=== PATIENT | male | born 1990 | race Caucasian/White ===

== ENCOUNTER 2018-05-21 08:17 | Emergency (ER) | payer OTHER ==
[2018-05-21 08:33] VITALS: BP 127/73; PULSE 65; RESP 18; TEMP 98
--- NOTE | 2018-05-21 08:58 | ED ---
General Adult HPI - General Chief complaint: Psychiatric Symptoms Stated complaint: EPS eval Time Seen by Provider: 05/21/18 08:38 Source: patient, RN notes reviewed, old records reviewed Mode of arrival: ambulatory - History of Present Illness Initial comments: 27-year-old male presents for mental health evaluation. Patient states he has not been sleeping well, he feels somewhat anxious. Denies any suicidal ideation. Patient has past history of autism, depression and anxiety. No diagnosis of schizophrenia. No physical complaints. - Related Data Home Medications Medication Instructions Recorded Confirmed PARoxetine HCL [Paxil] 30 mg PO HS 05/21/18 05/21/18 Previous Rx's Medication Instructions Recorded guanFACINE [Tenex] 0.5 mg PO AC-TID #45 tab 08/11/15 Allergies Allergy/AdvReac Type Severity Reaction Status Date / Time No Known Allergies Allergy Verified 05/21/18 10:29 Review of Systems ROS Statement: Those systems with pertinent positive or pertinent negative responses have been documented in the HPI. ROS Other: All systems not noted in ROS Statement are negative. Past Medical History Past Medical History: No Reported History Additional Past Medical History / Comment(s): autism History of Any Multi-Drug Resistant Organisms: None Reported Past Surgical History: No Surgical Hx Reported Past Anesthesia/Blood Transfusion Reactions: No Reported Reaction Past Psychological History: Depression Smoking Status: Current every day smoker Past Alcohol Use History: Occasional Past Drug Use History: None Reported - Past Family History Mother Additional Family Medical History / Comment(s): Mother is alive at age 60 with history of bipolar, Crohn's disease Father Family Medical History: Myocardial Infarction ([place]) Additional Family Medical History / Comment(s): Father is alive at age 55 with history of 2 myocardial infarctions. Sister(s) Additional Family Medical History / Comment(s): He has one sister with no major medical problems. General Exam General appearance: alert, in no apparent distress Head exam: Present: atraumatic, normocephalic Eye exam: Present: normal appearance, PERRL ENT exam: Present: normal exam Neck exam: Present: normal inspection. Absent: tenderness, meningismus Respiratory exam: Present: normal lung sounds bilaterally. Absent: respiratory distress, wheezes Cardiovascular Exam: Present: regular rate, normal rhythm GI/Abdominal exam: Present: soft. Absent: distended, tenderness Extremities exam: Present: normal inspection Neurological exam: Present: alert, oriented X3 Psychiatric exam: Present: depressed Expanded Focused psych exam: Present: delusional, flight of ideas, loose associations Skin exam: Present: warm, dry, intact. Absent: cyanosis, diaphoretic Course Vital Signs 05/21/18 08:27 Temperature 98.0 F Pulse Rate 65 Respiratory 18 Rate Blood Pressure 127/73 O2 Sat by Pulse 98 Oximetry Medical Decision Making - Medical Decision Making 27-year-old male presenting for psychiatric evaluation. Patient is not suicidal or homicidal. He is evaluated by EPS after being medically cleared. EPS does feel this patient is safe for outpatient follow-up and discharge at this time. He is followed by the mobile crisis unit, he will be contacted by Bill with [facility] this afternoon. Patient will return with worsening or changing symptoms. - Lab Data Lab Results 05/21/18 Range/Units 09:30 Urine Opiates Screen Not Detected (NotDetected) Ur Oxycodone Screen Not Detected (NotDetected) Urine Methadone Screen Not Detected (NotDetected) Ur Propoxyphene Screen Not Detected (NotDetected) Ur Barbiturates Screen Not Detected (NotDetected) U Tricyclic Antidepress Not Detected (NotDetected) Ur Phencyclidine Scrn Not Detected (NotDetected) Ur Amphetamines Screen Not Detected (NotDetected) U Methamphetamines Scrn Not Detected (NotDetected) U Benzodiazepines Scrn Not Detected (NotDetected) Urine Cocaine Screen Not Detected (NotDetected) U Marijuana (THC) Screen Detected H (NotDetected) Disposition Clinical Impression: Acute anxiety, Depression Disposition: HOME SELF-CARE Condition: Good Instructions: Depression (ED), Anxiety (ED) Additional Instructions: His follow-up with [facility], mobile crisis unit Is patient prescribed a controlled substance at d/c from ED?: No Referrals: None,Stated [Primary Care Provider] - 1-2 days Time of Disposition: 14:15
[2018-05-21 09:47] LABS: Amphetamine Screen,Urine Not Detected (NotDetected); Barbiturate Screen,Urine Not Detected (NotDetected); Benzodiazepines Screen,Urine Not Detected (NotDetected); Cocaine Screen,Urine Not Detected (NotDetected); Methadone Screen, Urine Not Detected (NotDetected); Opiate Screen,Urine Not Detected (NotDetected); Oxycodone Screen, Urine Not Detected (NotDetected); Phencyclidine Screen,Urine Not Detected (NotDetected); Tricyclic Antidepressant,Urine Not Detected (NotDetected); Urn Cannabinoid Scrn Detected (NotDetected)
== END 2018-05-21 14:50 | disposition home or self-care (01) ==
LOC: EC 08:17
DX: F32.9 Major depressive disorder, single episode, unspecified (principal); F41.9 Anxiety disorder, unspecified; F84.0 Autistic disorder; F17.200 Nicotine dependence, unspecified, uncomplicated; Z79.899 Other long term (current) drug therapy
CPT/HCPCS: 80306; 82075; 99284

== ENCOUNTER 2018-08-03 21:20 | Emergency (ER) | payer OTHER ==
[2018-08-03 21:28] VITALS: BP 126/88; PULSE 74; RESP 18; TEMP 98.6
--- NOTE | 2018-08-03 21:56 | ED ---
Psych HPI - General Chief Complaint: Psychiatric Symptoms Stated Complaint: Mental Health Time Seen by Provider: 08/03/18 21:41 Source: patient Mode of arrival: ambulatory - History of Present Illness Initial Comments: Patient is a 28-year-old male presenting for aggressive behavior brought in by police. Patient states that he has a history of Asperger's and that he gets frustrated. He threw a plastic face over the bridge out of anger because he was having some problems today. Police brought him in for further evaluation but he denies any suicidal homicidal ideation. He states that he feels great is not been having hallucinations. - Related Data Home Medications Medication Instructions Recorded Confirmed PARoxetine HCL [Paxil] 30 mg PO HS 05/21/18 05/21/18 Previous Rx's Medication Instructions Recorded guanFACINE [Tenex] 0.5 mg PO AC-TID #45 tab 08/11/15 Allergies Allergy/AdvReac Type Severity Reaction Status Date / Time No Known Allergies Allergy Verified 08/03/18 21:28 Review of Systems ROS Statement: Those systems with pertinent positive or pertinent negative responses have been documented in the HPI. Constitutional: Negative for chills, fatigue and fever. HENT: Negative for congestion. Respiratory: Negative for chest tightness, shortness of breath and wheezing. Negative for cough Cardiovascular: Negative for chest pain and palpitations. Gastrointestinal: Negative for abdominal pain. Negative for abdominal distention, diarrhea, nausea and vomiting. Genitourinary: Negative for dysuria. Musculoskeletal: Negative for back pain, neck pain and neck stiffness. Skin: Negative for color change. Neurological: Negative for dizziness, speech difficulty, weakness and light- headedness. Psychiatric/Behavioral: Positive for agitation and negative for confusion. Negative for anxiety ROS Other: All systems not noted in ROS Statement are negative. Past Medical History Past Medical History: No Reported History Additional Past Medical History / Comment(s): autism History of Any Multi-Drug Resistant Organisms: None Reported Past Surgical History: No Surgical Hx Reported Past Anesthesia/Blood Transfusion Reactions: No Reported Reaction Past Psychological History: Depression Smoking Status: Current every day smoker Past Alcohol Use History: Occasional Past Drug Use History: None Reported - Past Family History Mother Additional Family Medical History / Comment(s): Mother is alive at age 60 with history of bipolar, Crohn's disease Father Family Medical History: Myocardial Infarction ([place]) Additional Family Medical History / Comment(s): Father is alive at age 55 with history of 2 myocardial infarctions. Sister(s) Additional Family Medical History / Comment(s): He has one sister with no major medical problems. General Exam - General Exam Comments Initial Comments: Constitutional: Pt appears well-developed and well-nourished. No distress. Head: Normocephalic and atraumatic. Eyes: EOM are normal. Neck: Normal range of motion. Neck supple. Cardiovascular: Normal rate, regular rhythm, S1 normal, S2 normal and normal heart sounds. Exam reveals no gallop and no friction rub. No murmur heard. Pulmonary/Chest: Effort normal and breath sounds normal. No tachypnea and no bradypnea. No respiratory distress. No wheezes or rales noted. Abdominal: Soft. Bowel sounds are normal. Pt exhibits no shifting dullness, no distension, no pulsatile liver, no fluid wave, no abdominal bruit and no ascites. There is no rigidity, no rebound, no guarding, no tenderness at McBurney's point and negative Benavides's sign. There is no tenderness. Musculoskeletal: Normal range of motion. Neurological: Pt is alert and oriented to person, place, and time. No cranial nerve deficit. Skin: Skin is warm and dry. No rash noted. Pt is not diaphoretic. No erythema. No pallor. Psychiatric: Pt has a normal mood and affect. Pt behavior is normal. Thought content normal. Limitations: no limitations Course Vital Signs 08/03/18 21:25 Temperature 98.6 F Pulse Rate 74 Respiratory 18 Rate Blood Pressure 126/88 Medical Decision Making - Medical Decision Making Because the patient had no evidence of homicidal or suicidal ideation, it was thought that the patient could be safely discharged. Psychiatric nurse was also bedside and stated that she would set up home visit with mobile crisis unit. Disposition Clinical Impression: Mental health problem Disposition: HOME SELF-CARE Condition: Good Instructions (If sedation given, give patient instructions): Depression (ED) Is patient prescribed a controlled substance at d/c from ED?: No Referrals: [facility] [Primary Care Provider] - 1-2 days Time of Disposition: 21:58
== END 2018-08-03 22:05 | disposition home or self-care (01) ==
LOC: EC 21:20
DX: R45.4 Irritability and anger (principal); F84.5 Asperger's syndrome; F32.9 Major depressive disorder, single episode, unspecified; F17.200 Nicotine dependence, unspecified, uncomplicated; Z79.899 Other long term (current) drug therapy; Z81.8 Family history of other mental and behavioral disorders
CPT/HCPCS: 82075; 99284

== ENCOUNTER 2018-09-07 18:36 | Inpatient (IN) | payer MEDICAID, OTHER ==
--- NOTE | 2018-09-07 18:52 | ED ---
Psych HPI - General Chief Complaint: Psychiatric Symptoms Stated Complaint: EPS eval Time Seen by Provider: 09/07/18 18:45 Source: patient, police Mode of arrival: ambulatory - History of Present Illness Initial Comments: 28-year-old male patient with past medical history significant for autism, Asperger's, depression, anxiety presents to the emergency department today for evaluation of suicidal thoughts and violent behavior. Patient states that he has been "extremely suicidal". Patient states that he has been smashing everything in his apartment all day today. Patient does admit to smashing his bathroom ear out with a wrench, smashing patel, and breaking things. Patient states he did strike his head against a wall numerous times in attempt to kill himself. He denies any other injuries. Denies any homicidal ideation. States he is not sleeping. States he does follow with [facility] mobile crisis unit but they didn't show up today like there were supposed to. He denies any headache, blurred vision, double vision. Denies any nausea or vomiting. Denies any fever or chills. Patient denies any recent rash, shortness breath, chest pain, abdominal pain, diarrhea, constipation, back pain, numbness, tingling, dizziness, weakness, hematuria, dysuria, urinary urgency, urinary frequency, or any other complaints. - Related Data Home Medications Medication Instructions Recorded Confirmed PARoxetine HCL [Paxil] 20 mg PO HS 09/07/18 09/07/18 guanFACINE HCL [guanFACINE HCL ER] 1 mg PO HS 09/07/18 09/07/18 Allergies Allergy/AdvReac Type Severity Reaction Status Date / Time No Known Allergies Allergy Verified 09/07/18 19:24 Review of Systems ROS Statement: Those systems with pertinent positive or pertinent negative responses have been documented in the HPI. ROS Other: All systems not noted in ROS Statement are negative. Past Medical History Past Medical History: No Reported History Additional Past Medical History / Comment(s): autism History of Any Multi-Drug Resistant Organisms: None Reported Past Surgical History: No Surgical Hx Reported Past Anesthesia/Blood Transfusion Reactions: No Reported Reaction Past Psychological History: Depression Smoking Status: Former smoker Past Alcohol Use History: Rare Past Drug Use History: Marijuana - Past Family History Mother Additional Family Medical History / Comment(s): Mother is alive at age 60 with history of bipolar, Crohn's disease Father Family Medical History: Myocardial Infarction ([place]) Additional Family Medical History / Comment(s): Father is alive at age 55 with history of 2 myocardial infarctions. Sister(s) Additional Family Medical History / Comment(s): He has one sister with no major medical problems. General Exam Limitations: no limitations General appearance: alert, in no apparent distress, other (Physical well- developed, well-nourished adult male patient in no acute distress. Vital signs upon presentation are temperature 97.9F, pulse 73, respirations 18, blood pressure 109/68, pulse ox 97% on room air.) Eye exam: Present: normal appearance, PERRL, EOMI. Absent: scleral icterus, conjunctival injection, periorbital swelling ENT exam: Present: normal exam, normal oropharynx, mucous membranes moist Respiratory exam: Present: normal lung sounds bilaterally. Absent: respiratory distress, wheezes, rales, rhonchi, stridor Cardiovascular Exam: Present: regular rate, normal rhythm, normal heart sounds. Absent: systolic murmur, diastolic murmur, rubs, gallop, clicks GI/Abdominal exam: Present: soft, normal bowel sounds. Absent: distended, tenderness, guarding, rebound, rigid Neurological exam: Present: alert, oriented X3, CN II-XII intact, other (Strength in all 4 extremities is 5/5.) Psychiatric exam: Present: normal mood, anxious, suicidal ideation. Absent: normal affect, homicidal ideation Skin exam: Present: warm, dry, intact, normal color. Absent: rash Course Vital Signs 09/07/18 18:37 Temperature 97.9 F Pulse Rate 73 Respiratory 18 Rate Blood Pressure 109/68 O2 Sat by Pulse 97 Oximetry Medical Decision Making - Medical Decision Making Patient presents to the emergency department today for evaluation of suicidal ideation and increased agitation. Physical examination is unremarkable. Patient was seen and evaluated by emergency psychiatric services. It is felt he would benefit from inpatient admission at this time he'll be transferred to the mental health unit. - Lab Data Lab Results 09/07/18 Range/Units 18:46 Urine Opiates Screen Not Detected (NotDetected) Ur Oxycodone Screen Not Detected (NotDetected) Urine Methadone Screen Not Detected (NotDetected) Ur Propoxyphene Screen Not Detected (NotDetected) Ur Barbiturates Screen Not Detected (NotDetected) U Tricyclic Antidepress Not Detected (NotDetected) Ur Phencyclidine Scrn Not Detected (NotDetected) Ur Amphetamines Screen Not Detected (NotDetected) U Methamphetamines Scrn Not Detected (NotDetected) U Benzodiazepines Scrn Not Detected (NotDetected) Urine Cocaine Screen Not Detected (NotDetected) U Marijuana (THC) Screen Detected H (NotDetected) Disposition Clinical Impression: Suicidal ideation Disposition: TRANSFER TO PSYCH HOSP/UNIT Condition: Serious Referrals: [facility] [Primary Care Provider] - 1-2 days - Out of Hospital Transfer - Req. Specs Out of Hospital Transfer - Requested Specifics: Psychiatric Non-ICU ([facility])
[2018-09-07 19:58] LABS: Amphetamine Screen,Urine Not Detected (NotDetected); Barbiturate Screen,Urine Not Detected (NotDetected); Benzodiazepines Screen,Urine Not Detected (NotDetected); Cocaine Screen,Urine Not Detected (NotDetected); Methadone Screen, Urine Not Detected (NotDetected); Opiate Screen,Urine Not Detected (NotDetected); Oxycodone Screen, Urine Not Detected (NotDetected); Phencyclidine Screen,Urine Not Detected (NotDetected); Tricyclic Antidepressant,Urine Not Detected (NotDetected); Urn Cannabinoid Scrn Detected (NotDetected)
[2018-09-07] MEDS ORDERED: LORazepam 1 MG TAB PO PRN (20:25)
[2018-09-07] MEDS ORDERED: MAGNESIUM HYDROXIDE 2,400 MG/10 ML CUP PO PRN (20:25)
[2018-09-07] MEDS ORDERED: ACETAMINOPHEN TAB 325 MG TAB PO PRN (20:25)
[2018-09-07] MEDS ORDERED: MAG HYDROX/AL HYDROX/SIMETH 30 ML CUP PO PRN (20:25)
[2018-09-07] MEDS ORDERED: ZIPRASIDONE 20 MG VIAL IM PRN (20:25)
[2018-09-07] MEDS ORDERED: LORazepam 2 MG/ML INJ IM PRN (20:29)
--- NOTE | 2018-09-08 07:27 | P.CONS ---
History of Present Illness - Reason for Consult Consult date: 09/08/18 - History of Present Illness The patient is a 28 yo M with a PMH of autism, depression and suicidal ideation who presented to the ED for violent behavior and suicidal thoughts. He reports breaking things in his house and hitting his head against the wall several times to hurt himself. He was seen in the MHU. He reported feeling better since admission. He endorsed chronic rashes diffusely involving his knees, elbows, nos e, and scalp. The patient otherwise denied chest pain, SOB, nausea, vomiting, fever, chills, or abdominal pain. Review of Systems Pertinent positives and negatives as discussed in HPI, a complete review of systems was performed and all other systems are negative. Past Medical History Past Medical History: No Reported History Additional Past Medical History / Comment(s): autism History of Any Multi-Drug Resistant Organisms: None Reported Past Surgical History: No Surgical Hx Reported Past Anesthesia/Blood Transfusion Reactions: No Reported Reaction Past Psychological History: Depression Smoking Status: Former smoker Past Alcohol Use History: Rare Past Drug Use History: Marijuana - Past Family History Mother Additional Family Medical History / Comment(s): Mother is alive at age 60 with history of bipolar, Crohn's disease Father Family Medical History: Myocardial Infarction ([place]) Additional Family Medical History / Comment(s): Father is alive at age 55 with history of 2 myocardial infarctions. Sister(s) Additional Family Medical History / Comment(s): He has one sister with no major medical problems. Medications and Allergies Home Medications Medication Instructions Recorded Confirmed Type PARoxetine HCL [Paxil] 20 mg PO HS 09/07/18 09/07/18 History guanFACINE HCL [guanFACINE HCL ER] 1 mg PO HS 09/07/18 09/07/18 History Allergies Allergy/AdvReac Type Severity Reaction Status Date / Time No Known Allergies Allergy Verified 09/07/18 19:24 Physical Exam Vitals: Vital Signs Temp Pulse Pulse Resp BP BP Pulse Ox 09/08/18 02:58 97.6 F 59 L 16 120/66 09/07/18 21:26 98.5 F 57 L 16 114/59 98 09/07/18 20:17 97.5 F L 52 L 16 117/70 98 09/07/18 18:37 97.9 F 73 18 109/68 97 Intake and Output 09/07/18 09/08/18 09/08/18 22:59 06:59 14:59 Other: Weight 83.178 kg General: non toxic, no distress, appears at stated age, overweight Derm: silvery salmon colored plaques diffusely over elena knees, elbows, nose, and scalp, hyperpigmented lesions over armpit elena, no unusual ecchymoses, warm, dry Head: atraumatic, normocephalic, symmetric Eyes: EOMI, no lid lag, anicteric sclera, pupils equal round reactive to light ENT: Nose and ears atraumatic, no thrush, no pharyngeal erythema Neck: No thyromegaly, no cervical lymphadenopathy, trachea midline, supple Mouth: no lip lesion, mucus membranes moist Cardiovascular: S1S2 reg, no murmur, positive posterior tibial pulse bilateral, no edema, capillary refill less than 2 seconds Lungs: CTA bilateral, no rhonchi, no rales , no accessory muscle use Abdominal: soft, nontender to palpation, no guarding, no appreciable organomegaly, normal bowel sounds Ext: no gross muscle atrophy, muscle strength 5 out of 5 in all 4 extremities grossly, no contractures, Neuro: CN II-XI grossly intact, light touch intact all 4 extremities, finger to nose within normal limits, Psych: Alert, oriented, depressed affect Results Labs: Abnormal Lab Results - Last 24 Hours (Table) 09/07/18 Range/Units 18:46 U Marijuana (THC) Screen Detected H (NotDetected) Assessment and Plan Plan: Plaque psoriasis -The patient will need treatment w/ Steroids and Biologic agents -Due to significant side-effect profiles of the medications and the need for good follow-up, the patient will benefit from outpatient follow-up and treatment once stable from a mental health stand-point Fungal infection -Will give Topical clotrimazole Depression, suicidal ideation -As per psychiatry Thank you for allowing us to participate in the care of this patient. We will follow peripherally. Do not hesitate to contact us with questions. Someone can be reached from the [facility] hospitalist group at all hours of the day at [phone].
[2018-09-08] MEDS: CLOTRIMAZOLE 1% CREAM 15 GM TUBE TOPICAL SCH ×2 (08:15→20:59)
[2018-09-08 09:14] LABS: Basophils # (A) 0.1 k/uL (0-0.2); Basophils % (A) 1 %; Eosinophils # (A) 0.3 k/uL (0-0.7); Eosinophils % (A) 4 %; HCT 43.7 % (39.0-53.0); HGB 14.8 gm/dL (13.0-17.5); Lymphocytes # (A) 1.7 k/uL (1.0-4.8); Lymphocytes % (A) 25 %; MCH 29.9 pg (25.0-35.0); MCV 87.9 fL (80.0-100.0); Mean Platelet Volume 8.8; Monocytes # (A) 0.3 k/uL (0-1.0); Monocytes % (A) 5 %; Neutrophils # (A) 4.3 k/uL (1.3-7.7); Neutrophils % (A) 64 %; Platelet Count 184 k/uL (150-450); RBC 4.97 m/uL (4.30-5.90); RDW 13.4 % (11.5-15.5); WBC 6.7 k/uL (3.8-10.6)
[2018-09-08 09:25] LABS: ALT 26 U/L (21-72); AST 25 U/L (17-59); Alkaline Phosphatase 58 U/L (38-126); Anion Gap 5 mmol/L; Blood Urea Nitrogen 11 mg/dL (9-20); Calcium 9.3 mg/dL (8.4-10.2); Carbon Dioxide 31 mmol/L (22-30); Chloride 103 mmol/L (98-107); Glucose 128 mg/dL (74-99); Sodium 139 mmol/L (137-145); Total Bilirubin 0.7 mg/dL (0.2-1.3); Total Protein 6.3 g/dL (6.3-8.2)
--- NOTE | 2018-09-08 19:05 | HP ---
DATE OF SERVICE : 09/08/2018 HISTORY AND PHYSICAL IDENTIFYING DATA: The patient is a 28-year-old male. He lives in his own apartment. He was referred through the ED for evaluation. CHIEF COMPLAINT: The patient was agitated. He had significant property destruction in his apartment out of anger. He has a diagnosis of autism spectrum disorder. HISTORY OF PRESENTING ILLNESS: The patient notes that in his teenage years, he was diagnosed with Asperger's disorder. He had a psychiatric hospitalization here 08/03/2015, was seen by Dr. Johnson who continued a diagnosis of Asperger's disorder. The patient himself states that in discussion with Dr. Johnson, he was identified as having autism. When he was admitted in 2015, he was having problems with anger issues, threats to cut himself with a knife along with worsening depression with suicidal thinking. He says his current situation relates to his impulsively becoming angry in interaction with his father. He says that he feels his father demeans him. On the day of admission, he said he got set off with anger to the point where he had significant property destruction in his home. He said that he broke a sink and did destruction to a wall divider along with other significant property destruction. He says that he has a very short fuse and can get angry very quickly. He notes that he has been having increasing problems with depression over several months and sees that he has more trouble managing anger when he his mood has been this way. He says last summer, he was doing fairly well with his mood and noted that he had better control over his anger. In his history it is noted that he had a hospitalization in July 2015. After that he ended up going into [facility] for about 6 weeks and then moving to another [facility] for 6 weeks before moving into his own apartment. He says that he still owes about 2000 dollars for those stays. He says that a significant issue precipitating anger is when his father comes to the [place] He noted that his father lives in the [facility] with the father's . He visits the [place] for about 2 months a year. Typically coming in late July and leaving early September as well as making a shorter visit in January. He says that during this last visit, his father did not seem to be have any inclination to see him, which made him feel worse about himself. He started imagining things about his past and reliving experiences as he was growing up. He says that set off a lot of stress for him and led to his outburst. The patient notes that he had 2 visits to the emergency department this year. The first would be May 21 and August 03. According to the emergency department notes on May 21, he presented saying he wanted a psychiatric evaluation. The notes did not indicate any significant issues that the patient was having. August 03 emergency department notes indicated that the patient had aggressive behavior where he had thrown some materials over a bridge out of anger. The patient also describes that he has had panic attacks, mainly when he gets into the bouts of anger. He says that on the one hand, he can see over time that his depression has made him very prone to anger blowups, on the other hand he says he really cannot predict when his a blowups might occur and that he could not predict within this past week that he would have a blow up to the point of being so destructive to property in his home. He reports that he has been sleeping fair. He has had loss of motivation, energy and interest. He acknowledges that he has a lot of imagery in his head, though denies that he has any clear hallucinations or delusional thoughts. He says he does get paranoid feelings where he will feel somebody is behind him or watching him. He was vague about whether he has experienced posttraumatic symptoms or whether he recognizes flashbacks other than related to his father. He has issues with his father does set him off. He said when he was quite young he used to idolize his father and also recognize that there was stress in his relationship with his father. Current psychotropic medications: Paxil 20 mg a day and Tenex 1 mg a day. The patient has been on Paxil for a considerable period of time. He said the doses been titrated up to 40 mg. He would take it at nighttime. He said he felt that he would make him tired though he also believes that he gets some daytime tiredness from the medication as well. He said that he is on Tenex for ADHD and that dose had recently been increased as well. The patient is admitted for further evaluation. SUBSTANCE USE HISTORY: The patient reports use of marijuana, though he was vague on specifics. He says that he does not believe he smokes in any obsessive way. He reports no use of alcohol or other street drugs. He says that he has not had any past issues with substance abuse problems or had been in any substance abuse treatment. PAST MEDICAL HISTORY: The patient reports problems with psoriasis and constipation. He is not on any prescribed medications other than his psychiatric medications. REVIEW OF SYMPTOMS: Review of systems unremarkable. Refer to emergency department review for details. FAMILY AND SOCIAL HISTORY: The patient did not provide much information. He graduated from high school. He has some college class work. He lives independently. He says mostly his activities involved taking walks with his dog, going to the library or listening to music. He is not engaged in any general social activities. He says he does have some frustration in that he will go out to some community situations such as restaurants or pubs though he has problems making a connection with other people and in particular says that he has had difficulties trying to date. He feels that he gets rejected every time he makes efforts and that leads to increasing frustration as well. He said that he was diagnosed as a teenager with Asperger's or autism and that he has been angry at his parents ever since because he was not diagnosed earlier to where he could have engaged in activities in order to help learn and manage his issues. MENTAL STATUS EXAM: The patient came into the room and sat down. He at times seemed to have a staring gaze. He answered questions appropriately. His thoughts were clear, coherent, and goal directed. It was noteworthy that a fair amount of time during the interview he would stop an ask a question such as "what are you getting at?" There seemed to be a sense that he either was not understanding questions or was feeling that the questions might be painting him in some negative light. There were also times where he seemed to suggest that he could not keep up with the with processing the information. About [address] the interview when I was reading the emergency room notes at the point where I read the August 03 emergency room note stating that he had thrown some plastic objects over a bridge he immediately stood up. When he got to the doorway he had a boisterous though mechanical laugh that lasted about 2-3 seconds and then he walked out of the room. About 10 minutes later he walked back into the room and sat down. He was able to continue the interview. He acknowledges that he had gotten upset feeling that he was not sure what I was presenting to him with the information. When I reviewed the note again, he seemed to have no difficulty in hearing the information. His affect was intense. His mood depressed. He was moderately distressed. Patient did suggest that he may have some paranoid thinking whether it rises to the level of delusions is not clear. He voiced no thoughts of harm to self or others at the time that I interviewed him. He had made comments that while he might break property, he would not become aggressive towards others. On cognitive exam, he did not answer formal cognitive questions. He gave a fairly coherent history of recent events that were accurate based on the medical record. His focus and attention were fair, although at times he seemed to have trouble processing information and needed to stop the interview and have things reframed. Insight fair. Judgment poor. Fund of knowledge average. PHYSICAL EXAM: As per medical consultation. ASSESSMENT: This 28-year-old male is diagnosed with autism spectrum disorder with deficits in social communication and social interaction. In addition, the patient is diagnosed with depression and it does appear that the patient has a fairly isolated lifestyle with social isolation or a withdrawal that may be aggravating difficulties both with mood as well as his perceptions about himself and others. He has struggles with social- emotional reciprocity and may have deficits in nonverbal communicative behaviors. He did not appear to have significant issues in regards to restrictive repetitive patterns of behavior. There may be significant issues from childhood or potentially difficulties in perceptions of childhood experiences that continue to aggravate him. Strengths include [place] intelligence and his level of understanding of some of his issues related to autism spectrum. Weakness includes lack of social support and supportive social activities. DIAGNOSES: 1. Autism spectrum disorder with deficits of social communication and social interaction. 2. Major depression, chronic and recurrent severe with acute exacerbation. 3. Psoriasis. RECOMMENDATIONS: The patient will be admitted for comprehensive medical psychiatric and psychosocial evaluation. Will engage the patient in individual and group therapeutic activities. I will continue the patient on his current psychotropic medications including Paxil 20 mg a day and Tenex 1 mg a day. I had an extensive discussion with the patient regarding medication options. He was uncertain about whether he wanted to titrate up on Paxil. He believes that he may get some side effects of tiredness from Paxil though I did discuss that what he perceives as side effects may in fact be symptoms of his depression. We discussed the possibility of his getting engaged in some kind of therapeutic activities or potentially volunteer work in the community where he could work on developing social interaction skills. 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 We will coordinate with [facility] for followup care. EMILIANO / DARLEEN: [id number] / MING
[2018-09-08] MEDS: guanFACINE 1 MG TAB PO SCH (20:59)
[2018-09-08] MEDS ORDERED: PARoxetine 20 MG TAB PO SCH (21:00)
[2018-09-09] MEDS: CLOTRIMAZOLE 1% CREAM 15 GM TUBE TOPICAL SCH ×2 (09:12→21:19)
[2018-09-09 10:27] LABS: Hemoglobin A1C 5.3 % (4.0-6.0)
--- NOTE | 2018-09-09 13:03 | P.PN ---
Subjective Progress Note Date: 09/09/18 Principal diagnosis: Autism spectrum disorder with deficits of social communication and social interaction: Major depressive disorder chronic recurrent severe with acute exacerbation 3 psoriasis 09/09/2018: Chart reviewed and discussed in team. Interviewed the patient in person and office and he walks in with an angry affect with arms crossed in front of him and states" I have no purpose to live". He states he is angry and feels that his family hid his Autism from up until 3 years ago when he was hospitalized 3 [facility]. He denies he wants to try any medicines states that he just be better off going out and killing himself. Objective - Vital Signs Vital signs: Vital Signs Temp 97.8 F 09/09/18 00:26 Pulse 51 L 09/09/18 00:26 Resp 14 09/09/18 00:26 BP 114/56 09/09/18 00:26 Pulse Ox 98 09/07/18 21:26 Intake & Output 09/08/18 09/09/18 09/09/18 18:59 06:59 18:59 Weight 87.2 kg - Labs CBC & Chem 7: 09/08/18 08:31 09/08/18 08:31 Assessment and Plan Assessment: 28-year-old male patient with past medical history significant for autism, Asper andrey's, depression, anxiety presents to the emergency department today for evaluation of suicidal thoughts and violent behavior. Patient states that he has been "extremely suicidal". Patient states that he has been smashing everything in his apartment all day today. Patient does admit to smashing his bathroom ear out with a wrench, smashing patel, and breaking things. Patient states he did strike his head against a wall numerous times in attempt to kill himself. He denies any other injuries. Denies any homicidal ideation. States he is not sleeping. States he does follow with [facility] mobile crisis unit but they didn't show up today like there were supposed to. He denies any headache, blur red vision, double vision. Denies any nausea or vomiting. Denies any fever or chills. Patient denies any recent rash, shortness breath, chest pain, abdominal pain, diarrhea, constipation, back pain, numbness, tingling, dizziness, weakness, hematuria, dysuria, urinary urgency, urinary frequency, or any other complaints. - Related Data Home Medications Medication Instructions Recorded Confirmed PARoxetine HCL [Paxil] 20 mg PO HS 09/07/18 09/07/18 guanFACINE HCL [guanFACINE HCL ER] 1 mg PO HS 09/07/18 09/07/18 Allergies Allergy/AdvReac Type Severity Reaction Status Date / Time No Known Allergies Allergy Verified 09/07/18 19:24 Past Medical History Past Medical History: No Reported History Additional Past Medical History / Comment(s): autism History of Any Multi-Drug Resistant Organisms: None Reported Past Surgical History: No Surgical Hx Reported Past Anesthesia/Blood Transfusion Reactions: No Reported Reaction Past Psychological History: Depression Smoking Status: Former smoker Past Alcohol Use History: Rare Past Drug Use History: Marijuana - Past Family History Mother Additional Family Medical History / Comment(s): Mother is alive at age 60 with history of bipolar, Crohn's disease Father Family Medical History: Myocardial Infarction ([place]) Additional Family Medical History / Comment(s): Father is alive at age 55 with history of 2 myocardial infarctions. Sister(s) Additional Family Medical History / Comment(s): He has one sister with no major medical problems. Mental status examination: This is a 1-year-old single male who has noticeable social difficulties with walking on the unit with his arms crossed. He has an angry affect. His speech is pressured and irritable. He has good eye contact and he has resistance to care. His mood is depressed attitude is guarded and irritable. Affect is angry constricted labile. Orientation is times person place and situation. Thought content is delusional. Risk factors he admits to being suicidal without a specific plan. Perceptions within normal denies auditory or visual or tactile hallucinations. Thought processes concrete and circumstantial. Concentration is impaired per observation and interview with the patient. Recent and remote memory within normal. Intelligence below average. Judgment and insight are poor. Plan: Would be of benefit to add a mood stabilizer such as Depakote but he is unwilling to try any medicines. He remains on 15 minute checks due to the fact that he still has suicidal ideation. (1) Autistic spectrum disorder with isolated skills Narrative/Plan: This is a 28-year-old male diagnosed with autistic spectrum disorder with deficits in social communication social interactions. The patient has been diagnosed in the past with depression and appears the patient has a fairly isolated lifestyle with social isolation and/or withdrawal and may be aggravating difficulties both with mood as well as perceptions about himself. He struggles with social emotional interactions and may have deficits and nonverbal communication. Behaviors. He did not appear to have significant agitation regards to restrictive repetitive patterns of behavior. There may be significant issues from childhood potential difficulties and perception of child experience they continue to activate him. Strengths include [place] intelligence and level of understanding of some of this issues related to autistic spectrum. Weaknesses include lack social support and supportive social activities. Current Visit: Yes Status: Acute Priority: Medium Code(s): F84.0 - AUTISTIC DISORDER SNOMED Code(s): 613173021 (2) Major depressive disorder, recurrent severe without psychotic features Current Visit: Yes Status: Acute Priority: Medium Code(s): F33.2 - MAJOR DEPRESSV DISORDER, RECURRENT SEVERE W/O PSYCH FEATURES SNOMED Code(s): 61907374
[2018-09-09] MEDS: guanFACINE 1 MG TAB PO SCH (21:18)
[2018-09-10] MEDS: PARoxetine 10 MG TAB PO SCH (09:03)
[2018-09-10] MEDS: CLOTRIMAZOLE 1% CREAM 15 GM TUBE TOPICAL SCH ×2 (12:33→20:53)
--- NOTE | 2018-09-10 17:17 | PN ---
PROGRESS NOTE DATE OF SERVICE: 09/10/2018. CHIEF COMPLAINT: The patient was agitated. He had significant property destruction in his apartment out of anger. He has a diagnosis of autism spectrum disorder. INTERVAL HISTORY: The patient has significant distress. It is noteworthy that Dr. Shah documented yesterday that the patient has expressed hopelessness and thoughts that he would be better off killing himself. He described "I have no purpose to live." Today, he has been in his room. He is very isolated. When I came to talk to him, he did get up and come down to the office. He has essentially presented himself in the same way that it appears he did yesterday. He had a very bleak outlook. He did not offer any thoughts of what might be different. He continued to report being very depressed, hopeless, and with no sense of purpose. It is noted that he was very angry about the idea that his Paxil was changed from bedtime dose in the morning time dosing. He said he has always taken in the morning time. When I noted that the current dose is 30 mg rather than 20, he was angry about that, stating that he should only be on 20 mg a day. When I tried to discuss with him what options we might want to address to help in the aspect of his life, he simply got up, said he was done talking and walked out of the room. I did encourage him to come back at any point or to talk to staff if he wanted to review things further. MENTAL STATUS: Patient gave fair eye contact at best. Psychomotor activity was slow. Speech was monotone and soft. He answered questions with very brief responses. His thoughts were clear. His affect was flat. His mood depressed. He was significantly distressed. It was difficult to say whether or not there is significant thought disorder present. He was ambulatory with normal gait and strength. There was no tremor noted. ASSESSMENT: I will continue the current diagnosis including autism spectrum disorder with deficits in social communication and social interaction and major depression. There is concern that his depression is very severe to the point of underlying psychosis. Psychosis may be manifested in his inability to control extreme destructive impulses. He has signed in voluntarily though there may need to be consideration for petitioning along with the potential for starting him on antipsychotic medication. There are very significant risks for him becoming aggressive and destructive while on the psychiatric unit. It will be critical to have contact with the patient's family to better clarify history. MMODL / IJN: [id number] /
[2018-09-10] MEDS: guanFACINE 1 MG TAB PO SCH (20:52)
[2018-09-11] MEDS: PARoxetine 10 MG TAB PO SCH ×2 (09:35→20:02)
[2018-09-11] MEDS: CLOTRIMAZOLE 1% CREAM 15 GM TUBE TOPICAL SCH ×2 (09:35→20:42)
--- NOTE | 2018-09-11 14:05 | P.PN ---
Subjective Progress Note Date: 09/11/18 Principal diagnosis: Autism spectrum disorder with deficits of social communication and social interaction: Major depressive disorder chronic recurrent severe with acute exacerbation 3 psoriasis 09/09/2018: Chart reviewed and discussed in team. Interviewed the patient in person and office and he walks in with an angry affect with arms crossed in front of him and states" I have no purpose to live". He states he is angry and feels that his family hid his Autism from up until 3 years ago when he was hospitalized [facility]. He denies he wants to try any medicines states that he just be better off going out and killing himself. 09/11/2018 chart reviewed and discussed in team meeting. Interviewed patient in person and he still talks that he is worthless and he should . He is angry at the psychiatrist that has treated him including myself and feels that medications are not can help. He feels hopeless helpless and overwhelmed and refuses to take any new medications. Objective - Vital Signs Vital signs: Vital Signs Temp 97.7 F 09/11/18 06:28 Pulse 50 L 09/11/18 06:28 Resp 16 09/11/18 06:28 BP 109/59 09/11/18 06:28 Pulse Ox 98 09/07/18 21:26 - Labs CBC & Chem 7: 09/08/18 08:31 09/08/18 08:31 Assessment and Plan Assessment: 28-year-old male patient with past medical history significant for autism, Asperger's, depression, anxiety presents to the emergency department today for evaluation of suicidal thoughts and violent behavior. Patient states that he has been "extremely suicidal". Patient states that he has been smashing everything in his apartment all day today. Patient does admit to smashing his bathroom ear out with a wrench, smashing patel, and breaking things. Patient states he did strike his head against a wall numerous times in attempt to kill himself. He denies any other injuries. Denies any homicidal ideation. States he is not sleeping. States he does follow with [facility] mobile crisis unit but they didn't show up today like there were supposed to. He denies any headache, blurred vision, double vision. Denies any nausea or vomiting. Denies any fever or chills. Patient denies any recent rash, shortness breath, chest pain, abdominal pain, diarrhea, constipation, back pain, numbness, tingling, dizziness, weakness, hematuria, dysuria, urinary urgency, urinary frequency, or any other complaints. - Related Data Home Medications Medication Instructions Recorded Confirmed PARoxetine HCL [Paxil] 20 mg PO HS 09/07/18 09/07/18 guanFACINE HCL [guanFACINE HCL ER] 1 mg PO HS 09/07/18 09/07/18 Allergies Allergy/AdvReac Type Severity Reaction Status Date / Time No Known Allergies Allergy Verified 09/07/18 19:24 Past Medical History Past Medical History: No Reported History Additional Past Medical History / Comment(s): autism History of Any Multi-Drug Resistant Organisms: None Reported Past Surgical History: No Surgical Hx Reported Past Anesthesia/Blood Transfusion Reactions: No Reported Reaction Past Psychological History: Depression Smoking Status: Former smoker Past Alcohol Use History: Rare Past Drug Use History: Marijuana - Past Family History Mother Additional Family Medical History / Comment(s): Mother is alive at age 60 with history of bipolar, Crohn's disease Father Family Medical History: Myocardial Infarction ([place]) Additional Family Medical History / Comment(s): Father is alive at age 55 with history of 2 myocardial infarctions. Sister(s) Additional Family Medical History / Comment(s): He has one sister with no major medical problems. Mental status examination: This is a 28-year-old single male who has noticeable social difficulties with walking on the unit with his arms crossed. He has an angry affect. His speech is pressured and irritable. He has good eye contact and he has resistance to care. His mood is depressed attitude is guarded and irritable. Affect is angry constricted labile. Orientation is times person place and situation. Thought content is delusional. Risk factors he admits to being suicidal without a specific plan. Perceptions within normal denies auditory or visual or tactile hallucinations. Thought processes concrete and circumstantial. Concentration is impaired per observation and interview with the patient. Recent and remote memory within normal. Intelligence below avera ge. Judgment and insight are poor. Plan: Would be of benefit to add a mood stabilizer such as Depakote but he is unwilling to try any medicines. He remains on 15 minute checks due to the fact that he still has suicidal ideation. 09/11/2018: Patient remains on 15 minute checks due to his continued suicidal ideation. He was upset that he took his Paxil during the daytime and was angry irritable and agitated. I discussed with him I'll change his Paxil to bedtime for his wishes. He still remains suicidal without a plan. Again he refuses to take any other medications. Would appreciate community mental health at team meeting tomorrow to discuss his disposition. (1) Autistic spectrum disorder with isolated skills Current Visit: Yes Status: Acute Priority: Medium Code(s): F84.0 - AUTISTIC DISORDER SNOMED Code(s): 569907293 (2) Major depressive disorder, recurrent severe without psychotic features Current Visit: Yes Status: Acute Priority: Medium Code(s): F33.2 - MAJOR DEPRESSV DISORDER, RECURRENT SEVERE W/O PSYCH FEATURES SNOMED Code(s): 10436827 Time with Patient: Less than 30
[2018-09-11] MEDS: guanFACINE 1 MG TAB PO SCH (20:41)
[2018-09-12 07:15] VITALS: PULSE 46
[2018-09-12] MEDS: CLOTRIMAZOLE 1% CREAM 15 GM TUBE TOPICAL SCH ×2 (08:21→21:33)
[2018-09-12] MEDS: PARoxetine 10 MG TAB PO SCH (21:33)
[2018-09-12] MEDS: guanFACINE 1 MG TAB PO SCH (21:33)
[2018-09-13 07:05] VITALS: RESP 14; TEMP 97.7
[2018-09-13 07:06] VITALS: BP 100/56
[2018-09-13] MEDS: CLOTRIMAZOLE 1% CREAM 15 GM TUBE TOPICAL SCH (09:50)
--- NOTE | 2018-09-13 12:10 | P.DS ---
Providers Date of admission: 09/07/18 20:23 Expected date of discharge: 09/13/18 Attending physician: Bobby Shah DO Consults: 09/07/18 20:25 Consult Physician Routine Consulting Provider: Elvia Stevens Consult Reason/Comments: medical management Do you want consulting provider notified?: Yes Primary care physician: [facility] Diagnosis(es) (1) Autistic spectrum disorder with isolated skills 28-year-old male patient with past medical history significant for autism, Asperger's, depression, anxiety presents to the emergency department today for evaluation of suicidal thoughts and violent behavior. Patient states that he has been "extremely suicidal". Patient states that he has been smashing everything in his apartment all day today. Patient does admit to smashing his bathroom ear out with a wrench, smashing patel, and breaking things. Patient states he did strike his head against a wall numerous times in attempt to kill himself. He denies any other injuries. Denies any homicidal ideation. States he is not sleeping. States he does follow with [facility] mobile crisis unit but they didn't show up today like there were supposed to. He denies any headache, blurred vision, double vision. Denies any nausea or vomiting. Denies any fever or chills. Patient denies any recent rash, shortness breath, chest pain, abdominal pain, diarrhea, constipation, back pain, numbness, tingling, dizziness, weakness, hematuria, dysuria, urinary urgency, urinary frequency, or any other complaints. - Related Data Home Medications Medication Instructions Recorded Confirmed PARoxetine HCL [Paxil] 20 mg PO HS 09/07/18 09/07/18 guanFACINE HCL [guanFACINE HCL ER] 1 mg PO HS 09/07/18 09/07/18 Allergies Allergy/AdvReac Type Severity Reaction Status Date / Time No Known Allergies Allergy Verified 09/07/18 19:24 Review of Systems ROS Statement: Those systems with pertinent positive or pertinent negative responses have been documented in the HPI. ROS Other: All systems not noted in ROS Statement are negative. Past Medical History Past Medical History: No Reported History Additional Past Medical History / Comment(s): autism History of Any Multi-Drug Resistant Organisms: None Reported Past Surgical History: No Surgical Hx Reported Past Anesthesia/Blood Transfusion Reactions: No Reported Reaction Past Psychological History: Depression Smoking Status: Former smoker Past Alcohol Use History: Rare Past Drug Use History: Marijuana - Past Family History Mother Additional Family Medical History / Comment(s): Mother is alive at age 60 with history of bipolar, Crohn's disease Father Family Medical History: Myocardial Infarction ([place]) Additional Family Medical History / Comment(s): Father is alive at age 55 with history of 2 myocardial infarctions. Sister(s) Additional Family Medical History / Comment(s): He has one sister with no major medical problems. Current Visit: Yes Status: Acute Priority: Medium (2) Major depressive disorder, recurrent severe without psychotic features Current Visit: Yes Status: Acute Priority: Medium Hospital Course: This is a 28-year-old single male who has noticeable social difficulties with walking on the unit with his arms crossed. He has an angry affect. His speech is pressured and irritable. He has good eye contact and he has resistance to care. His mood is depressed attitude is guarded and irritable. Affect is angry constricted labile. Orientation is times person place and situation. Thought content is delusional. Risk factors he admits to being suicidal without a specific plan. Perceptions within normal denies auditory or visual or tactile hallucinations. Thought processes concrete and circumstantial. Concentration is impaired per observation and interview with the patient. Recent and remote memory within normal. Intelligence below average. Judgment and insight are poor. Plan: Would be of benefit to add a mood stabilizer such as Depakote but he is unwilling to try any medicines. He remains on 15 minute checks due to the fact that he still has suicidal ideation. 09/11+: Patient remains on 15 minute checks due to his continued suicidal ideation. He was upset that he took his Paxil during the daytime and was angry irritable and agitated. I discussed with him I'll change his Paxil to bedtime for his wishes. He still remains suicidal without a plan. Again he refuses to take any other medications. Would appreciate community mental health at team meeting tomorrow to discuss his disposition. Mental status examination time of discharge 09/13/2018 12:08 PM: The patient presents alert, pleasant, and cooperative. There calmly seated without any agitated behavior. [He] reports that [his] mood is good. Affect is congruent and euthymic. [He] deny having any suicidal or homicidal ideation intent or plan. [He] denies any auditory or visual hallucinations. There is no evidence of any delusional thought content. [His] thought process is linear and goal-directed. [He is] speech is fluent and nonpressured. [He has] memory and concentration is grossly intact for the purposes of this session. Patient Condition at Discharge: Stable Plan - Discharge Summary Discharge Rx Participant: Yes New Discharge Prescriptions: New Clotrimazole Cream [Lotrimin Cream] 1 applic TOPICAL BID applic PARoxetine [Paxil] 30 mg PO 2100 30 Days #90 tab guanFACINE [Tenex] 1 mg PO HS 30 Days #30 tab Discontinued PARoxetine HCL [Paxil] 20 mg PO HS guanFACINE HCL [guanFACINE HCL ER] 1 mg PO HS Discharge Medication List Clotrimazole Cream [Lotrimin Cream] 1 applic TOPICAL BID applic 09/13/18 [Rx] PARoxetine [Paxil] 30 mg PO 2100 30 Days #90 tab 09/13/18 [Rx] guanFACINE [Tenex] 1 mg PO HS 30 Days #30 tab 09/13/18 [Rx] Follow up Appointment(s)/Referral(s): [facility] [Primary Care Provider] - 1-2 days Discharge Disposition: HOME SELF-CARE
== END 2018-09-13 13:40 | disposition home or self-care (01) | DRG 885 ==
LOC: EC 18:36 → 3MHU 20:23
PROVIDERS: ADMIT Psychiatry & Neurology Psychiatry; ATTEND Psychiatry & Neurology Psychiatry
DX: F84.5 Asperger's syndrome (principal); R45.851 Suicidal ideations; F33.2 Major depressive disorder, recurrent severe without psychotic features; F41.0 Panic disorder [episodic paroxysmal anxiety]; F90.9 Attention-deficit hyperactivity disorder, unspecified type; L40.0 Psoriasis vulgaris; K59.00 Constipation, unspecified; Z60.4 Social exclusion and rejection; Z79.899 Other long term (current) drug therapy; Z87.891 Personal history of nicotine dependence; Z81.8 Family history of other mental and behavioral disorders; Z83.79 Family history of other diseases of the digestive system; Z82.49 Family history of ischemic heart disease and other diseases of the circulatory system
CPT/HCPCS: 80053; 80306; 82075; 83036; 84443; 85025; 99285

== ENCOUNTER 2018-10-22 15:23 | Emergency (ER) | payer OTHER ==
[2018-10-22] MEDS ORDERED: RABIES IMMUNE GLOB 300 UNIT/ML 5 ML VIAL IM ONE (17:06)
[2018-10-22] MEDS ORDERED: RABIES VACC,HUMAN DIPLOID (PF) 2.5 UNIT KIT IM ONE (17:06)
--- NOTE | 2018-10-24 02:42 | CDI ---
Documentation Clarification OP Dear Buck HERMAN, TRISTON Please provide clinical impression. Thank you, [place] [employer] If you have any questions, please contact Machine [employer]il [employer]er at [phone] [facility]
== END 2018-10-22 18:24 ==
LOC: EC 15:23
DX: S71.151A Open bite, right thigh, initial encounter (principal); W54.0XXA Bitten by dog, initial encounter; Y93.01 Activity, walking, marching and hiking
CPT/HCPCS: 90375; 90471; 90675; 96372; 99283

== ENCOUNTER → 2018-10-25 | Outpatient (CLI) | payer OTHER ==
[~2018-10-25] MED LIST: RABIES VACCINE (PCEC) 2.5 UNIT KIT IM ONE
== END | disposition home or self-care (01) ==
LOC: PEDOP 16:26
PROVIDERS: ATTEND Physician Assistant Medical
DX: Z23 Encounter for immunization (principal)
CPT/HCPCS: 90471; 90675

== ENCOUNTER 2021-04-16 19:38 | Emergency (ER) | payer OTHER ==
[2021-04-16 20:07] VITALS: BP 122/88; PULSE 80; RESP 18; TEMP 98.2
--- NOTE | 2021-04-16 23:58 | ED ---
Psych HPI - General Chief Complaint: Psychiatric Symptoms Stated Complaint: Mental Health Time Seen by Provider: 04/16/21 21:50 Source: patient, RN notes reviewed, old records reviewed Mode of arrival: ambulatory Limitations: no limitations - History of Present Illness Initial Comments: This is a 30-year-old male to the ER today. Patient presents today for evaluation regards to anger management. Patient did have an anger episode with his mother today. He is up breaking his fall. He was concerned that his mother was given make phone calls to get him admitted for psychiatric evaluation. Patient apparently comes emergency department today talk to us regarding his need not to be admitted for psychiatric evaluation Complaint: other (Anger reaction) -: hour(s) Associated Psychiatric Symptoms: none History of same: No Quality: constant Improves With: none Worsens With: none Associated Symptoms: denies other symptoms Treatments Prior to Arrival: none - Related Data Previous Rx's Medication Instructions Recorded Clotrimazole Cream [Lotrimin Cream] 1 applic TOPICAL BID applic 09/13/18 PARoxetine [Paxil] 30 mg PO 2100 30 Days #90 tab 09/13/18 guanFACINE [Tenex] 1 mg PO HS 30 Days #30 tab 09/13/18 Allergies Allergy/AdvReac Type Severity Reaction Status Date / Time No Known Allergies Allergy Verified 04/16/21 20:06 Review of Systems ROS Statement: Those systems with pertinent positive or pertinent negative responses have been documented in the HPI. ROS Other: All systems not noted in ROS Statement are negative. Past Medical History Past Medical History: No Reported History Additional Past Medical History / Comment(s): autism History of Any Multi-Drug Resistant Organisms: None Reported Past Surgical History: No Surgical Hx Reported Past Anesthesia/Blood Transfusion Reactions: No Reported Reaction Past Psychological History: Depression Smoking Status: Never smoker Past Alcohol Use History: Rare Past Drug Use History: Marijuana - Past Family History Mother Additional Family Medical History / Comment(s): Mother is alive at age 60 with history of bipolar, Crohn's disease Father Family Medical History: Myocardial Infarction ([place]) Additional Family Medical History / Comment(s): Father is alive at age 55 with history of 2 myocardial infarctions. Sister(s) Additional Family Medical History / Comment(s): He has one sister with no major medical problems. General Exam Limitations: no limitations General appearance: alert, in no apparent distress Head exam: Present: atraumatic, normocephalic, normal inspection Eye exam: Present: normal appearance, PERRL, EOMI. Absent: scleral icterus, conjunctival injection, periorbital swelling ENT exam: Present: normal exam, mucous membranes moist Neck exam: Present: normal inspection. Absent: tenderness, meningismus, lymphadenopathy Respiratory exam: Present: normal lung sounds bilaterally. Absent: respiratory distress, wheezes, rales, rhonchi, stridor Cardiovascular Exam: Present: regular rate, normal rhythm, normal heart sounds. Absent: systolic murmur, diastolic murmur, rubs, gallop, clicks GI/Abdominal exam: Present: soft, normal bowel sounds. Absent: distended, te nderness, guarding, rebound, rigid Extremities exam: Present: normal inspection, full ROM, normal capillary refill. Absent: tenderness, pedal edema, joint swelling, calf tenderness Back exam: Present: normal inspection Neurological exam: Present: alert, oriented X3, CN II-XII intact Psychiatric exam: Present: normal affect, normal mood Skin exam: Present: warm, dry, intact, normal color. Absent: rash Course Vital Signs 04/16/21 20:02 Temperature 98.2 F Pulse Rate 80 Respiratory 18 Rate Blood Pressure 122/88 O2 Sat by Pulse 97 Oximetry - Reevaluation(s) Reevaluation #1: 04/17/21 04:43 Medical record is reviewed Reevaluation #2: 04/17/21 04:43 She did speak with multiple people regarding his symptoms of feelings. He feels improved and can be discharged Medical Decision Making - Medical Decision Making 30 male to the emergency department with anger reaction, and management. Patient not currently homicidal or suicidal and does not want inpatient evaluation. Patient can be discharged home Disposition Clinical Impression: Adjustment reaction of adult life, Anger reaction Disposition: HOME SELF-CARE Condition: Fair Instructions (If sedation given, give patient instructions): Mood Disorders (ED) Is patient prescribed a controlled substance at d/c from ED?: No Referrals: None,Stated [Primary Care Provider] - 1-2 days
== END 2021-04-17 01:33 | disposition home or self-care (01) ==
LOC: EC 19:38
DX: F43.20 Adjustment disorder, unspecified (principal); R45.4 Irritability and anger; F32.A Depression, unspecified; F12.90 Cannabis use, unspecified, uncomplicated; Z72.89 Other problems related to lifestyle; F84.0 Autistic disorder
CPT/HCPCS: 99283

== ENCOUNTER 2021-09-28 13:15 | Inpatient (IN) | payer MEDICAID, OTHER ==
--- NOTE | 2021-09-28 13:41 | ED ---
General Adult HPI - General Chief complaint: Psychiatric Symptoms Stated complaint: Petition Time Seen by Provider: 09/28/21 13:15 Source: patient, RN notes reviewed, old records reviewed Mode of arrival: ambulatory Limitations: no limitations - History of Present Illness Initial comments: This is a 31-year-old male who presents emergency department he states his past medical history significant for depression, bipolar, ADHD, autism. Patient states he comes in today because his been suicidal he was contemplating jumping off a building. Patient approached officer and told them is plans to the officer brought him into the emergency department and petitioned him. Patient states he has attempted suicide in the past. Patient states he has nothing to live for is not is in a row for his children he doesn't speak with his mother see his sister. He states his father also lives in the [facility] and he doesn't see him. Patient states he has no job patient denies any physical complaints today. - Related Data Home Medications Medication Instructions Recorded Confirmed OXcarbazepine [Trileptal] 1 tab PO DIRECTED 09/28/21 09/28/21 PARoxetine [Paxil] 20 mg PO HS 09/28/21 09/28/21 guanFACINE HCL [guanFACINE HCL ER] 1 mg PO HS 09/28/21 09/28/21 Allergies Allergy/AdvReac Type Severity Reaction Status Date / Time No Known Allergies Allergy Verified 09/28/21 16:23 Review of Systems ROS Statement: Those systems with pertinent positive or pertinent negative responses have been documented in the HPI. ROS Other: All systems not noted in ROS Statement are negative. Past Medical History Past Medical History: No Reported History Additional Past Medical History / Comment(s): autism History of Any Multi-Drug Resistant Organisms: None Reported Past Surgical History: No Surgical Hx Reported Past Anesthesia/Blood Transfusion Reactions: No Reported Reaction Past Psychological History: Depression Smoking Status: Never smoker Past Alcohol Use History: Rare Past Drug Use History: Marijuana - Past Family History Mother Additional Family Medical History / Comment(s): Mother is alive at age 60 with history of bipolar, Crohn's disease Father Family Medical History: Myocardial Infarction ([place]) Additional Family Medical History / Comment(s): Father is alive at age 55 with history of 2 myocardial infarctions. Sister(s) Additional Family Medical History / Comment(s): He has one sister with no major medical problems. General Exam - General Exam Comments Initial Comments: GENERAL: Patient is well-developed and well-nourished. Patient is nontoxic and well- hydrated and is in no acute distress. ENT: Neck is soft and supple. No significant lymphadenopathy is noted. Oropharynx is clear. Moist mucous membranes. Neck has full range of motion without eliciting any pain. EYES: The sclera were anicteric and conjunctiva were pink and moist. Extraocular movements were intact and pupils were equal round and reactive to light. Eyelids were unremarkable. PULMONARY: Unlabored respirations. Good breath sounds bilaterally. No audible rales rhonchi or wheezing was noted. CARDIOVASCULAR: There is a regular rate and rhythm without any murmurs gallops or rubs. ABDOMEN: Soft and nontender with normal bowel sounds. SKIN: Skin is clear with no lesions or rashes and otherwise unremarkable. NEUROLOGIC: Patient is alert and oriented x3. Cranial nerves II through XII are grossly intact. Motor and sensory are also intact. Normal speech, volume and content. Symmetrical smile. MUSCULOSKELETAL: Normal extremities with adequate strength and full range of motion. LYMPHATICS: No significant lymphadenopathy is noted PSYCHIATRIC: Patient states he suicidal. Limitations: no limitations Course Vital Signs 09/28/21 13:16 Temperature 98.0 F Pulse Rate 81 Respiratory 16 Rate Blood Pressure 147/107 O2 Sat by Pulse 96 Oximetry Medical Decision Making - Medical Decision Making EPS evaluated the patient and determined the patient needed to be admitted. - Lab Data Lab Results 09/28/21 Range/Units 13:33 Urine Opiates Screen Not Detected (NotDetected) Ur Oxycodone Screen Not Detected (NotDetected) Urine Methadone Screen Not Detected (NotDetected) Ur Propoxyphene Screen Not Detected (NotDetected) Ur Barbiturates Screen Not Detected (NotDetected) U Tricyclic Antidepress Not Detected (NotDetected) Ur Phencyclidine Scrn Not Detected (NotDetected) Ur Amphetamines Screen Not Detected (NotDetected) U Methamphetamines Scrn Not Detected (NotDetected) U Benzodiazepines Scrn Not Detected (NotDetected) Urine Cocaine Screen Not Detected (NotDetected) U Marijuana (THC) Screen Detected H (NotDetected) Disposition Clinical Impression: Depression, Suicidal ideation Disposition: ADMITTED IP TO THIS HOSP Referrals: None,Stated [Primary Care Provider] - 1-2 days Time of Disposition: 18:23
[2021-09-28 14:01] LABS: Amphetamine Screen,Urine Not Detected (NotDetected); Barbiturate Screen,Urine Not Detected (NotDetected); Benzodiazepines Screen,Urine Not Detected (NotDetected); Cocaine Screen,Urine Not Detected (NotDetected); Methadone Screen, Urine Not Detected (NotDetected); Opiate Screen,Urine Not Detected (NotDetected); Oxycodone Screen, Urine Not Detected (NotDetected); Phencyclidine Screen,Urine Not Detected (NotDetected); Tricyclic Antidepressant,Urine Not Detected (NotDetected); Urn Cannabinoid Scrn Detected (NotDetected)
[2021-09-28] MEDS ORDERED: ACETAMINOPHEN TAB 325 MG TAB PO PRN (19:18)
[2021-09-28] MEDS ORDERED: MAG HYDROX/AL HYDROX/SIMETH 30 ML CUP PO PRN (19:18)
[2021-09-28] MEDS ORDERED: MAGNESIUM HYDROXIDE 2,400 MG/10 ML CUP PO PRN (19:18)
[2021-09-28] MEDS ORDERED: HALOPERIDOL LACTATE 5 MG/ML 1 ML VIAL IM PRN (19:18)
[2021-09-28] MEDS ORDERED: LORazepam 2 MG/ML INJ IM PRN (19:59)
[2021-09-28 20:07] VITALS: RESP 16
[2021-09-28] MEDS: traZODone HCL 50 MG TAB PO PRN (21:03)
[2021-09-29 07:20] LABS: Basophils # (A) 0.1 k/uL (0-0.2); Basophils % (A) 1 %; Eosinophils # (A) 0.2 k/uL (0-0.7); Eosinophils % (A) 3 %; HCT 51.9 % (39.0-53.0); HGB 16.8 gm/dL (13.0-17.5); Lymphocytes # (A) 2.8 k/uL (1.0-4.8); Lymphocytes % (A) 33 %; MCH 29.7 pg (25.0-35.0); MCHC 32.3 g/dL (31.0-37.0); Mean Platelet Volume 8.9; Monocytes # (A) 0.6 k/uL (0-1.0); Monocytes % (A) 7 %; Neutrophils # (A) 4.5 k/uL (1.3-7.7); Neutrophils % (A) 53 %; Platelet Count 238 k/uL (150-450); RBC 5.64 m/uL (4.30-5.90); RDW 12.6 % (11.5-15.5); WBC 8.4 k/uL (3.8-10.6)
[2021-09-29 07:29] LABS: ALT 28 U/L (4-49); AST 34 U/L (17-59); African American GFR (CKD) >90 (>60 ml/min/1.73 sqM); Albumin 4.9 g/dL (3.5-5.0); Alkaline Phosphatase 64 U/L (38-126); Anion Gap 9 mmol/L; Blood Urea Nitrogen 11 mg/dL (9-20); Calcium 9.4 mg/dL (8.4-10.2); Carbon Dioxide 28 mmol/L (22-30); Chloride 102 mmol/L (98-107); Glucose 94 mg/dL (74-99); Non-African American GFR(CKD) >90 (>60 ml/min/1.73 sqM); Sodium 139 mmol/L (137-145); Total Bilirubin 0.9 mg/dL (0.2-1.3); Total Protein 7.8 g/dL (6.3-8.2)
--- NOTE | 2021-09-29 09:46 | P.HP ---
Psychiatric H&P - . H&P Date: 09/29/21 History & Physical: Allergies Allergy/AdvReac Type Severity Reaction Status Date / Time No Known Allergies Allergy Verified 09/28/21 16:23 Vital Signs Temp 96.9 F L 09/29/21 09:38 Pulse 79 09/29/21 09:38 Resp 16 09/28/21 19:30 BP 155/68 09/29/21 09:38 Pulse Ox 97 09/28/21 19:30 Intake & Output 09/28/21 09/29/21 09/29/21 18:59 06:59 18:59 Weight 86.183 kg Laboratory Last Values WBC 8.4 k/uL (3.8-10.6) 09/29/21 06:41 RBC 5.64 m/uL (4.30-5.90) 09/29/21 06:41 Hgb 16.8 gm/dL (13.0-17.5) 09/29/21 06:41 Hct 51.9 % (39.0-53.0) 09/29/21 06:41 MCV 92.0 fL (80.0-100.0) 09/29/21 06:41 MCH 29.7 pg (25.0-35.0) 09/29/21 06:41 MCHC 32.3 g/dL (31.0-37.0) 09/29/21 06:41 RDW 12.6 % (11.5-15.5) 09/29/21 06:41 Plt Count 238 k/uL (150-450) 09/29/21 06:41 MPV 8.9 09/29/21 06:41 Neutrophils % 53 % 09/29/21 06:41 Lymphocytes % 33 % 09/29/21 06:41 Monocytes % 7 % 09/29/21 06:41 Eosinophils % 3 % 09/29/21 06:41 Basophils % 1 % 09/29/21 06:41 Neutrophils # 4.5 k/uL (1.3-7.7) 09/29/21 06:41 Lymphocytes # 2.8 k/uL (1.0-4.8) 09/29/21 06:41 Monocytes # 0.6 k/uL (0-1.0) 09/29/21 06:41 Eosinophils # 0.2 k/uL (0-0.7) 09/29/21 06:41 Basophils # 0.1 k/uL (0-0.2) 09/29/21 06:41 Sodium 139 mmol/L (137-145) 09/29/21 06:41 Potassium 4.0 mmol/L (3.5-5.1) 09/29/21 06:41 Chloride 102 mmol/L (98-107) 09/29/21 06:41 Carbon Dioxide 28 mmol/L (22-30) 09/29/21 06:41 Anion Gap 9 mmol/L 09/29/21 06:41 BUN 11 mg/dL (9-20) 09/29/21 06:41 Creatinine 0.89 mg/dL (0.66-1.25) 09/29/21 06:41 Est GFR (CKD-EPI)AfAm >90 (>60 ml/min/1.73 sqM) 09/29/21 06:41 Est GFR (CKD-EPI)NonAf >90 (>60 ml/min/1.73 sqM) 09/29/21 06:41 Glucose 94 mg/dL (74-99) 09/29/21 06:41 Calcium 9.4 mg/dL (8.4-10.2) 09/29/21 06:41 Total Bilirubin 0.9 mg/dL (0.2-1.3) 09/29/21 06:41 AST 34 U/L (17-59) 09/29/21 06:41 ALT 28 U/L (4-49) 09/29/21 06:41 Alkaline Phosphatase 64 U/L (38-126) 09/29/21 06:41 Total Protein 7.8 g/dL (6.3-8.2) 09/29/21 06:41 Albumin 4.9 g/dL (3.5-5.0) 09/29/21 06:41 TSH 1.470 mIU/L (0.465-4.680) 09/29/21 06:41 Urine Opiates Screen Not Detected (NotDetected) 09/28/21 13:33 Ur Oxycodone Screen Not Detected (NotDetected) 09/28/21 13:33 Urine Methadone Screen Not Detected (NotDetected) 09/28/21 13:33 Ur Propoxyphene Screen Not Detected (NotDetected) 09/28/21 13:33 Ur Barbiturates Screen Not Detected (NotDetected) 09/28/21 13:33 U Tricyclic Antidepress Not Detected (NotDetected) 09/28/21 13:33 Ur Phencyclidine Scrn Not Detected (NotDetected) 09/28/21 13:33 Ur Amphetamines Screen Not Detected (NotDetected) 09/28/21 13:33 U Methamphetamines Scrn Not Detected (NotDetected) 09/28/21 13:33 U Benzodiazepines Scrn Not Detected (NotDetected) 09/28/21 13:33 Urine Cocaine Screen Not Detected (NotDetected) 09/28/21 13:33 U Marijuana (THC) Screen Detected (NotDetected) H 09/28/21 13:33 09/29/21 09:39 This is a psychiatric evaluation on Josh Lawrence who is a 31-year-old male with a diagnosis of schizoaffective disorder, autism spectrum disorder intermittent explosive disorder and was hospitalized on this unit for the third time Patient admits that he has chronic problems with the hyperactivity easy irritab ility where any noise sound of music and bother him, he admits that he feels rejected by a most of the girls that he has met and realizes that his decision to be alone in his life He admits that he gets easily frustrated with people in general and gets temperamental He says that he is currently living alone and is on disability He states that he has tried several different medications and remembers Lamictal and Depakote and does not want to take them He denies any legal problems at this time He admits to smoking cannabis from time to time He denies any other substance use or alcohol use Patient did not give any specific information about his current exacerbation of symptoms Patient is currently not on any psychotropic medications Past history personal and social history as described above Patient seemed to be escalating easily when his name was announced on the loudspeaker to report to the group room where he became very agitated and angry with the screaming obscenities Patient was then dizzy with the staff members arguing even though he initially was subdued for this interview for short time Further details will be collected at a later date when patient is more cooperative and will be working progress Mental status examination reveals a young male who presents as somewhat of a disheveled appearance Affect at this time remains labile with fluctuation from being cooperative to extremely volatility with angry outbursts verbally although patient has not shown any physical threatening behavior Patient does seem to have some insight into his problem. Thought processes seem to be racing Patient's formal and operational judgment and insight remains impaired Problem-solving abilities poor Patient however has some insight into his illness and need for treatment Cognitively appears to be intact Diagnostic impression: Schizoaffective disorder Autism spectrum disorder by history Cannabis use disorder Intermittent explosive disorder Plan: The patient meets the criteria for psychiatric hospitalization for stability and improving his coping skills The patient will be hospitalized on the unit for further evaluation and treatment. Therapy will be focused on providing supportive care improving his coping abilities with a multimodal treatment Approximate the stay would be 5-7 days Patient agreed to take gabapentin which be started at 300 mg 3 times a day and Zyprexa 10 mg at nighttime Patient was briefed on the effects and side effects of the medication which she appears to have understood well Dorian Vergara M.D. 09/29/2021
[2021-09-29 10:45] LABS: Chol/HDL Ratio 5.53 Ratio; LDL Cholesterol,Calculated 187.2 mg/dL (0.0-131.0); VLDL Calculation 17.58 mg/dL (5.00-40.00)
[2021-09-29] MEDS ORDERED: haloperidoL 5 MG TAB PO PRN (11:28)
[2021-09-29] MEDS: GABAPENTIN 300 MG CAP PO SCH ×2 (16:06→20:31)
[2021-09-29] MEDS: traZODone HCL 50 MG TAB PO PRN (20:31)
[2021-09-29] MEDS: OLANZapine 10 MG TAB PO SCH (20:31)
[2021-09-30] MEDS: GABAPENTIN 300 MG CAP PO SCH ×3 (08:37→20:45)
--- NOTE | 2021-09-30 09:17 | P.PN ---
Subjective Progress Note Date: 09/30/21 Principal diagnosis: Schizoaffective disorder Intermittent explosive disorder Autism spectrum disorder Sensory processing disorder Subjective data: I'm working on this sudoku and seems to be relaxing But the noise on the loudspeaker can be very irritating If somebody is talking too much around me that also gets be going The medicine seems to be helping him feel little calmer and I'm willing to take it Objective data: Patient remains quite animated and anxious Patient however seems to feel positive about the current medication and is agreeable to make dosage adjustments Denies any suicidal or homicidal ideations Admits to low frustration tolerance Patient also seems to be wearing the same dirty clothes and seemed to have not brought any other clothes Formal and operational judgment and insight remains very concrete Problem solving abilities poor Plan: We will increase the Zyprexa to 5 mg in the morning and 10 at night Discussed effects and side effects We'll also request the staff if he can find some spare clothes for him since patient does not like hospital gown Patient continues to meet the criteria for inpatient psychiatric hospitalization Continue supportive care and redirection Discussed anger management and distraction techniques Continue participation in milieu treatment Dorian Vergara M.D. 09/30/2021 Objective - Vital Signs Vital signs: Vital Signs Temp 97.2 F L 09/30/21 06:58 Pulse 62 09/30/21 06:58 Resp 16 09/30/21 06:58 BP 119/64 09/30/21 06:58 Pulse Ox 98 09/30/21 06:58 - Labs CBC & Chem 7: 09/29/21 06:41 09/29/21 06:41 Labs: Abnormal Lab Results - Last 24 Hours (Table) 09/29/21 Range/Units 06:41 Cholesterol 250.00 H (0.00-200.00) mg/dL LDL Cholesterol, Calc 187.2 H (0.0-131.0) mg/dL
[2021-09-30] MEDS: OLANZapine 5 MG TAB PO SCH (09:40)
--- NOTE | 2021-09-30 19:01 | P.MDCNMH ---
History of Present Illness H&P Date: 09/30/21 Chief Complaint: Medical clearance 31 woman with medical history of hypertension, overweight, autism spectrum disorder presented for mental health evaluation. Medicine was consulted for medical clearance. Patient's only medical issue is hypertension for which she takes guanfacine. He denies fevers, chills, nausea, vomiting, chest pain, palpitations, syncope, presyncope, cough, dyspnea, abdominal pain, constipation, diarrhea, dysuria, dyschezia, numbness/weakness of extremities. In the mental health unit, patient is afebrile, 119/64, heart rate 62, ND percent on room air. CBC, chemistries, liver function tests are all unremarkable. TSH is 1.47. LDL is elevated on lipid panel as well as total cholesterol. A1c is 5.2. Urine tox urine is positive for marijuana. Covid was negative. No images to review. All Systems reviewed and pertinent positives and negatives noted in HPI, all other symptoms are negative Gen: awake, alert HEENT: normocephalic, atraumatic, good hearing acuity, moist mucous membranes Resp: good air exchange, breathing comfortably with no accessory muscle use CVS: good distal perfusion x 4, GI: soft, NTTP, ND : no SPT, no CVAT, hernández catheter not present MSK: no pitting edema, no clubbing Neuro: non-focal, moving all extremities Psych: cooperative, euthymic mood Labs imaging as above Assessment/plan: Hypertension -Resume guanfacine Hyperlipidemia -Recommend diet modification as an outpatient, PCP follow-up Marijuana use -Recommend cessation Overweight -Recommend diet modification, exercise regimen, PCP follow-up Thank you for this consult. A member of our team is available 11/12, should any questions or concerns arise, please reach out via perfect serve Past Medical History Past Medical History: No Reported History Additional Past Medical History / Comment(s): autism History of Any Multi-Drug Resistant Organisms: None Reported Past Surgical History: No Surgical Hx Reported Past Anesthesia/Blood Transfusion Reactions: No Reported Reaction Past Psychological History: Depression Smoking Status: Never smoker Past Alcohol Use History: Rare Past Drug Use History: Marijuana - Past Family History Mother Additional Family Medical History / Comment(s): Mother is alive at age 60 with history of bipolar, Crohn's disease Father Family Medical History: Myocardial Infarction ([place]) Additional Family Medical History / Comment(s): Father is alive at age 55 with history of 2 myocardial infarctions. Sister(s) Additional Family Medical History / Comment(s): He has one sister with no major medical problems. Medications and Allergies Home Medications Medication Instructions Recorded Confirmed Type OXcarbazepine [Trileptal] 1 tab PO DIRECTED 09/28/21 09/28/21 History PARoxetine [Paxil] 20 mg PO HS 09/28/21 09/28/21 History guanFACINE HCL [guanFACINE HCL ER] 1 mg PO HS 09/28/21 09/28/21 History Allergies Allergy/AdvReac Type Severity Reaction Status Date / Time No Known Allergies Allergy Verified 09/28/21 16:23 Physical Exam Osteopathic Statement: *. No significant issues noted on an osteopathic structural exam other than those noted in the History and Physical/Consult. Vitals: Vital Signs Temp Pulse Resp BP Pulse Ox 09/30/21 06:58 97.2 F L 62 16 119/64 98 Cranial Nerve Examination - Cranial Nerves Cranial Nerve II- Optic: Intact Cranial Nerve III- Oculomotor: Intact Cranial Nerve IV- Trochlear: Intact Cranial Nerve V- Trigeminal: Intact Cranial Nerve - Abducens: Intact Cranial Nerve VII- Facial: Intact Cranial Nerve VIII- Auditory: Intact Cranial Nerve IX- Glossopharyngeal: Intact Cranial Nerve X- Vagus: Intact Cranial Nerve XI- Accessory: Intact Cranial Nerve XII- Hypoglossal: Intact Results CBC & Chem 7: 09/29/21 06:41 09/29/21 06:41
[2021-09-30] MEDS: OLANZapine 10 MG TAB PO SCH (20:45)
[2021-09-30] MEDS: traZODone HCL 50 MG TAB PO PRN (20:45)
[2021-10-01] MEDS: OLANZapine 5 MG TAB PO SCH (08:17)
[2021-10-01] MEDS: GABAPENTIN 300 MG CAP PO SCH ×3 (08:17→20:51)
--- NOTE | 2021-10-01 10:43 | P.PN ---
Subjective Progress Note Date: 10/01/21 Principal diagnosis: Schizoaffective disorder Intermittent explosive disorder Autism spectrum disorder Sensory processing disorder Subjective data: I am feeling better but this overhead speakers sometimes drive me crazy A medication seems to be helping though I was taking guanfacine for blood pressure but I if I have take less medicine that much the better' Objective data: Patient remains quite animated and anxious Patient however seems to feel positive about the current medication and is agreeable to make dosage adjustments Denies any suicidal or homicidal ideations Admits to low frustration tolerance Patient also seems to be wearing the same dirty clothes and seemed to have not brought any other clothes Formal and operational judgment and insight remains very concrete Problem solving abilities poor Plan: Patient is now on Zyprexa 5 mg in the morning and 10 at night and seems to be agreeing well with him Discussed effects and side effects We'll also request the staff if he can find some spare clothes for him since patient does not like hospital gown are helping with the laundry Patient continues to meet the criteria for inpatient psychiatric hospitalization Continue supportive care and redirection Discussed anger management and distraction techniques Continue participation in milieu treatment Dorian Vergara M.D. 10/01/2021 Objective - Vital Signs Vital signs: Vital Signs Temp 97.7 F 10/01/21 07:10 Pulse 64 10/01/21 07:10 Resp 16 09/30/21 06:58 BP 131/82 10/01/21 07:10 Pulse Ox 99 10/01/21 07:10 - Labs CBC & Chem 7: 09/29/21 06:41 09/29/21 06:41
[2021-10-01] MEDS: OLANZapine 10 MG TAB PO SCH (20:51)
[2021-10-02] MEDS: OLANZapine 5 MG TAB PO SCH (08:21)
[2021-10-02] MEDS: GABAPENTIN 300 MG CAP PO SCH ×3 (08:21→20:37)
--- NOTE | 2021-10-02 09:04 | P.PN ---
Subjective Progress Note Date: 10/02/21 Principal diagnosis: Schizoaffective disorder Intermittent explosive disorder Autism spectrum disorder Sensory processing disorder Subjective data: The gabapentin seems to be making me much more relaxed I am feeling better but this overhead speakers sometimes drive me crazy I'm less angry and find myself more cooperative I used to be able to go to concerts listen to loud music but something changed and now I'm so intolerant Objective data: Patient is cooperative and friendly Patient has received some new clothes from the staff and hygiene has improved Patient however seems to feel positive about the current medication and is agreeable to make dosage adjustments Denies any suicidal or homicidal ideations Admits to low frustration tolerance and feels that that is also improving Formal and operational judgment and insight shows some improvement Problem solving abilities as slightly improved Plan: Patient is now on Zyprexa 5 mg in the morning and 10 at night and seems to be agreeing well with him Discussed effects and side effects Patient continues to meet the criteria for inpatient psychiatric hospitalization Continue supportive care and redirection Discussed anger management and distraction techniques Continue participation in milieu treatment Dorian Vergara M.D. 10/02/2021 Objective - Vital Signs Vital signs: Vital Signs Temp 97.7 F 10/01/21 07:10 Pulse 64 10/01/21 07:10 Resp 16 09/30/21 06:58 BP 131/82 10/01/21 07:10 Pulse Ox 99 10/01/21 07:10 Intake & Output 10/01/21 10/02/21 10/02/21 18:59 06:59 18:59 Weight 86.183 kg - Labs CBC & Chem 7: 09/29/21 06:41 09/29/21 06:41
[2021-10-02] MEDS: OLANZapine 10 MG TAB PO SCH (20:36)
[2021-10-02] MEDS: traZODone HCL 50 MG TAB PO PRN (20:36)
[2021-10-03] MEDS: OLANZapine 5 MG TAB PO SCH (08:30)
[2021-10-03] MEDS: GABAPENTIN 300 MG CAP PO SCH ×3 (08:30→20:53)
--- NOTE | 2021-10-03 18:16 | PN ---
PROGRESS NOTE DATE OF SERVICE: 10/03/2021 CHIEF COMPLAINT: The patient was admitted for being in a highly distressed state with thoughts that he would jump out of a building to kill himself. INTERVAL HISTORY: Patient has been doing fair. He had a fairly good day yesterday. He was out on the unit. He attended all of the groups. He has been compliant with care. He has shown improvement in his mood and has a fairly good outlook. It was documented that he slept 6 hours last night. Today he has been up and continues to be making progress in his mood and outlook. He had no specific complaints or concerns today. It is noted that he is on disability and voices no specific interest or direction for his future. We talked some about school. He had attended some classes at [employer], though says he has no interest in going back to college. He was not clear as to what his experience was there. He did talk some about having disagreements with his mother, though he was not specific. He feels the medications have been helpful and feels that he is more even in his mood. He was quite able to talk about the idea that he wanted to kill himself, though did not seem to see that as a negative as he looks back on it. He felt it was quite an appropriate emotional response at the time and stated that he clearly had intent. He tolerates his psychotropic medications. MENTAL STATUS: Patient sat with a little restlessness. He gave good eye contact. He answered questions appropriately. His thoughts were clear, coherent and goal-directed. He was spontaneous and interactive. His affect was in a reasonable range. His mood was fairly even. He did not appear to be depressed or distressed. There was no indication of thought disorder. He voiced no thoughts of harm at present, though it is noteworthy that he accepted the idea that it was appropriate for him to have thoughts of suicide. He was oriented and alert. ASSESSMENT: I will continue the current diagnosis and treatment plan. The patient will continue Zyprexa 5 mg in the morning, 10 mg at bedtime, and Neurontin 300 mg 3 times a day. I reviewed medication issues with the patient, including indication, potential side effects, and concerns relating to metabolics and movement disorder issues. I discussed the downside for the patient's use of marijuana. We discussed his stopping marijuana and potential withdrawal issues he may have. We discussed some discharge planning issues. We will focus on stabilization and discharge planning. [id number] / IJN: [id number] /
[2021-10-03] MEDS: OLANZapine 10 MG TAB PO SCH (20:53)
[2021-10-03] MEDS: traZODone HCL 50 MG TAB PO PRN (20:55)
[2021-10-03] MEDS: LORazepam 1 MG TAB PO PRN (21:55)
[2021-10-04] MEDS: OLANZapine 5 MG TAB PO SCH (08:38)
[2021-10-04] MEDS: GABAPENTIN 300 MG CAP PO SCH ×3 (08:38→20:36)
--- NOTE | 2021-10-04 10:09 | P.PN ---
Progress Note - Text Progress Note Date: 10/04/21 Interval History: Patient was seen wandering the hallways and was directable and agreeable to speak with hand sign writer in the office. Patient is not reporting any auditory or visual hallucinations. He is not reporting any paranoia or other delusions. The patient remains future oriented stating that he would like to return home and get his belongings. He also states that if he was to be evicted, he would like to at least get back his $200 from his security deposit. He then states to this provider that he would not want to go there alone. He states that he wants somebody to accompany him, in particular his apprise counselor. He then states this provider that if he was to be kicked out from his home, that he would not want to go to a nursing home. He states that he would become suicidal again and come back to the hospital. The patient has been in adherent with his medications and is not reporting any significant side effects of this time. He denies any issues regarding his sleep or his appetite. Mental Status Exam: General Appearance: Patient appears to be stated age is alert, directable, and cooperative. Behavior: Patient is calmly seated without any agitated behavior. Slightly elevated psychomotor activity. Speech: Patient's speech is fluent and nonpressured. Mood/Affect: Mood is improving mildly, affect is expansive and at times bright. Suicidality/Homicidality: Patient denies having any suicidal or homicidal ideation intent or plan. Perceptions: Patient denies any visual hallucinations and denies any auditory hallucinations Though content/process: There is no evidence of any delusional thought content and thought process is linear and goal-directed. Memory and concentration: AOX3, grossly intact for the purposes of this session Judgment and insight: Improving mildly Vital Signs Temp 97.7 F 10/04/21 06:56 Pulse 87 10/04/21 06:56 Resp 16 09/30/21 06:58 BP 147/81 10/04/21 06:56 Pulse Ox 99 10/04/21 06:56 Assessment Schizoaffective disorder Autism spectrum disorder Cannabis use disorder Intermittent explosive disorder. Plan: -Patient continues to meet criteria for inpatient psychiatric admission for symptom stabilization and safety. Patient has signed adult voluntary form and medication consent and was placed in patient's chart. -Medications: Continue Zyprexa 5 mg by mouth every morning and 10 mg by mouth daily at bedtime for mood stabilization Continue gabapentin 300 mg by mouth 3 times a day for off label use for anxiety Continue trazodone 50 mg at bedtime when necessary for insomnia -When necessary Ativan and Haldol for agitation/aggression. -SW on board for discharge planning. Encouraged the patient to participate in milieu.
[2021-10-04] MEDS: LORazepam 1 MG TAB PO PRN ×2 (10:48→20:36)
[2021-10-04] MEDS: OLANZapine 10 MG TAB PO SCH (20:36)
[2021-10-05 07:29] VITALS: BP 140/79; PULSE 87; TEMP 97.1
[2021-10-05] MEDS: OLANZapine 5 MG TAB PO SCH (08:25)
[2021-10-05] MEDS: GABAPENTIN 300 MG CAP PO SCH (08:25)
[2021-10-05] MEDS: LORazepam 1 MG TAB PO PRN (08:35)
--- NOTE | 2021-10-05 10:09 | P.DS ---
Providers Date of admission: 09/28/21 19:02 Expected date of discharge: 10/05/21 Attending physician: Jluis Torres MD Consults: 09/28/21 19:18 Consult Physician Routine Consulting Provider: [facility] Consult Reason/Comments: H & P and medical care Do you want consulting provider notified?: Yes Primary care physician: Stated None - Discharge Diagnosis(es) (1) Schizoaffective disorder Current Visit: Yes Status: Acute Priority: High (2) Intermittent explosive disorder in adult Current Visit: Yes Status: Acute Priority: High (3) Cannabis use disorder, moderate, dependence Current Visit: Yes Status: Chronic Priority: Medium (4) Autistic spectrum disorder with isolated skills Current Visit: Yes Status: Chronic Priority: Medium Hospital Course: Admission HPI: Initial psychiatric evaluation was completed by Dr Vergara on 09/29/2021 who wrote: "This is a psychiatric evaluation on Josh Lawrence who is a 31-year-old male with a di agnosis of schizoaffective disorder, autism spectrum disorder intermittent explosive disorder and was hospitalized on this unit for the third time Patient admits that he has chronic problems with the hyperactivity easy irritability where any noise sound of music and bother him, he admits that he feels rejected by a most of the girls that he has met and realizes that his decision to be alone in his life He admits that he gets easily frustrated with people in general and gets temperamental He says that he is currently living alone and is on disability He states that he has tried several different medications and remembers Lamictal and Depakote and does not want to take them He denies any legal problems at this time He admits to smoking cannabis from time to time He denies any other substance use or alcohol use Patient did not give any specific information about his current exacerbation of symptoms Patient is currently not on any psychotropic medications Past history personal and social history as described above Patient seemed to be escalating easily when his name was announced on the loudspeaker to report to the group room where he became very agitated and angry with the screaming obscenities Patient was then dizzy with the staff members arguing even though he initially was subdued for this interview for short time Further details will be collected at a later date when patient is more cooperative and will be working progress" Hospital course: Upon admission to the unit patient was initially noted to be labile with fluctuations from cooperative to extremely volatile. Patient was however directable and agreeable to commence treatment. Patient got along well with other patients on the unit and followed unit protocol. Patient was compliant with the medications and denied any side effects throughout hospital course. Patient was started on gabapentin and zyprexa to address mood stabilization and anxiety. Patient spoke of his stressors and engaged in therapy both group and individual. Patient was also seen by medical team for history and physical exam. Throughout the course of the hospitalization patient gradually improved with regards to his anger management and developed better insight and judgement. On the day of discharge, the patient denies any suicidal or homicidal ideation, intention, and/or plan. He reports no access to firearms or other weapons. Patient endorsed wanting to live for his health. He denies wanting to hurt anyone. He acknowledges he has to work on coping skills. Patient denied any paranoia and did not endorse any delusions. Patient does have a significant history of heavy marijuana use however was counseled on abstaining from all substances including alcohol and marijuana. Patient was also counseled on the medications and need for regular compliance and was encouraged to follow-up with their outpatient appointment for mental health and also for primary care. Prior to discharge a meeting will be arranged by health and social care teacher to answer any questions and ensure safety upon discharge. Mental status exam: General Appearance: Patient appears to be stated age is alert, pleasant, and cooperative. Patient is in no acute distress and has fair hygiene and grooming. Poor dentition. Behavior: Patient is calmly seated without any agitated behavior. Eye contact approrpriate. Stereotypic movements consistent with Autism spectrum disorder. Speech: Patient's speech is fluent and nonpressured. Mood/Affect: Patient reports their mood is "feeling good.", affect is congruent and euthymic. Intense at times but directable and bright. Suicidality/Homicidality: Patient denies having any suicidal or homicidal ideation, intention, and/or plan. Perceptions: Patient denies any auditory or visual hallucinations. Though content/process: There is no evidence of any delusional thought content and thought process is linear and goal-directed. Patient is future oriented. Memory and concentration: AOX3, grossly intact for the purposes of this session. Can spell "WORLD" backwards correctly. Judgment and insight: Improved with guarded prognosis Vital Signs Temp 97.1 F L 10/05/21 07:28 Pulse 87 10/05/21 07:28 Resp 16 10/05/21 07:28 BP 140/79 10/05/21 07:28 Pulse Ox 99 10/04/21 06:56 Impression: Schizoaffective disorder Autism spectrum disorder Cannabis use disorder Intermittent explosive disorder Plan: -Continue with discharge today as patient has improved and stabilized psychiatrically and is not currently an imminent threat to himself and/or ot hers. Patient will remain at chronically elevated risk for harm to self and/or others due to his lack of coping skills. -Continue medications: Zyprexa 5 mg in the morning and 10 mg at bedtime for mood stabilization Gabapentin 300 mg three times a day for off-label use for anxiety. -Patient was counseled on the need for medication compliance and appropriate follow-up at mental health and also primary care for medical issues. Patient verbalized understanding and agreed. -Social work to arrange for and conduct family meeting to ensure safety upon discharge and answer any questions/concerns. Social work also to arrange for patients follow up appointments with [facility] for psychiatric care along with follow up with primary care provider. -Patient counseled on abstaining from recreational drugs and marijuana and alcohol. Was informed/educated on the adverse effects on their physical and mental health. Patient verbally agreed and understood. -Patient was instructed to return to the hospital or seek immediate medical care if their psychiatric or medical symptoms do worsen or reoccur. -Psychoeducation and supportive therapy provided to patient. Risks and benefits of pharmacological treatment versus the risks and benefits of nontreatment weight and discussed. Informed consent discussion held. Common side effects of psychotropics discussed such as, but not limited to headache, GI disturbance, sexual dysfunction, movement disorders, sedation, and orthostatic hypotension. Life threatening and blackbox warnings of prescribed medications also discussed. Potential risks of operating a vehicle or heavy machinery discussed with patient at length. Advised on importance of compliance and a reliable and responsible manner. Patient advised to review FDA consumer labeling of all medications prior to taking. Patient verbalized understanding of potential risks, and agrees with current treatment plan. Patient advised to medically contact physician/emergency personnel if any acute changes in condition occur. Allergies Allergy/AdvReac Type Severity Reaction Status Date / Time No Known Allergies Allergy Verified 10/01/21 13:58 Laboratory Results WBC 8.4 k/uL (3.8-10.6) 09/29/21 06:41 RBC 5.64 m/uL (4.30-5.90) 09/29/21 06:41 Hgb 16.8 gm/dL (13.0-17.5) 09/29/21 06:41 Hct 51.9 % (39.0-53.0) 09/29/21 06:41 MCV 92.0 fL (80.0-100.0) 09/29/21 06:41 MCH 29.7 pg (25.0-35.0) 09/29/21 06:41 MCHC 32.3 g/dL (31.0-37.0) 09/29/21 06:41 RDW 12.6 % (11.5-15.5) 09/29/21 06:41 Plt Count 238 k/uL (150-450) 09/29/21 06:41 MPV 8.9 09/29/21 06:41 Neutrophils % 53 % 09/29/21 06:41 Lymphocytes % 33 % 09/29/21 06:41 Monocytes % 7 % 09/29/21 06:41 Eosinophils % 3 % 09/29/21 06:41 Basophils % 1 % 09/29/21 06:41 Neutrophils # 4.5 k/uL (1.3-7.7) 09/29/21 06:41 Lymphocytes # 2.8 k/uL (1.0-4.8) 09/29/21 06:41 Monocytes # 0.6 k/uL (0-1.0) 09/29/21 06:41 Eosinophils # 0.2 k/uL (0-0.7) 09/29/21 06:41 Basophils # 0.1 k/uL (0-0.2) 09/29/21 06:41 Sodium 139 mmol/L (137-145) 09/29/21 06:41 Potassium 4.0 mmol/L (3.5-5.1) 09/29/21 06:41 Chloride 102 mmol/L (98-107) 09/29/21 06:41 Carbon Dioxide 28 mmol/L (22-30) 09/29/21 06:41 Anion Gap 9 mmol/L 09/29/21 06:41 BUN 11 mg/dL (9-20) 09/29/21 06:41 Creatinine 0.89 mg/dL (0.66-1.25) 09/29/21 06:41 Est GFR (CKD-EPI)AfAm >90 (>60 ml/min/1.73 sqM) 09/29/21 06:41 Est GFR (CKD-EPI)NonAf >90 (>60 ml/min/1.73 sqM) 09/29/21 06:41 Glucose 94 mg/dL (74-99) 09/29/21 06:[address] Glu mg/dL 103 09/29/21 06:41 Hemoglobin A1c 5.2 % (0.0-6.0) 09/29/21 06:41 Calcium 9.4 mg/dL (8.4-10.2) 09/29/21 06:41 Total Bilirubin 0.9 mg/dL (0.2-1.3) 09/29/21 06:41 AST 34 U/L (17-59) 09/29/21 06:41 ALT 28 U/L (4-49) 09/29/21 06:41 Alkaline Phosphatase 64 U/L (38-126) 09/29/21 06:41 Total Protein 7.8 g/dL (6.3-8.2) 09/29/21 06:41 Albumin 4.9 g/dL (3.5-5.0) 09/29/21 06:41 Triglycerides 87.90 mg/dL (0.00-149.00) 09/29/21 06:41 Cholesterol 250.00 mg/dL (0.00-200.00) H 09/29/21 06:41 LDL Cholesterol, Calc 187.2 mg/dL (0.0-131.0) H 09/29/21 06:41 VLDL Cholesterol, Calc 17.58 mg/dL (5.00-40.00) 09/29/21 06:41 HDL Cholesterol 45.20 mg/dL (40.00-60.00) 09/29/21 06:41 Cholesterol/HDL Ratio 5.53 Ratio 09/29/21 06:41 TSH 1.470 mIU/L (0.465-4.680) 09/29/21 06:41 Urine Opiates Screen Not Detected (NotDetected) 09/28/21 13:33 Ur Oxycodone Screen Not Detected (NotDetected) 09/28/21 13:33 Urine Methadone Screen Not Detected (NotDetected) 09/28/21 13:33 Ur Propoxyphene Screen Not Detected (NotDetected) 09/28/21 13:33 Ur Barbiturates Screen Not Detected (NotDetected) 09/28/21 13:33 U Tricyclic Antidepress Not Detected (NotDetected) 09/28/21 13:33 Ur Phencyclidine Scrn Not Detected (NotDetected) 09/28/21 13:33 Ur Amphetamines Screen Not Detected (NotDetected) 09/28/21 13:33 U Methamphetamines Scrn Not Detected (NotDetected) 09/28/21 13:33 U Benzodiazepines Scrn Not Detected (NotDetected) 09/28/21 13:33 Urine Cocaine Screen Not Detected (NotDetected) 09/28/21 13:33 U Marijuana (THC) Screen Detected (NotDetected) H 09/28/21 13:33 Coronavirus (PCR) Not Detected (Not Detectd) 09/29/21 11:30 Patient Condition at Discharge: Stable Plan - Discharge Summary Discharge Rx Participant: No New Discharge Prescriptions: New Gabapentin [Neurontin] 300 mg PO TID 30 Days #90 cap OLANZapine [ZyPREXA] 5 mg PO DAILY 30 Days tab OLANZapine [ZyPREXA] 10 mg PO HS 30 Days tab Continue guanFACINE HCL [guanFACINE HCL ER] 1 mg PO HS Discontinued PARoxetine [Paxil] 20 mg PO HS OXcarbazepine [Trileptal] 1 tab PO DIRECTED Discharge Medication List guanFACINE HCL [guanFACINE HCL ER] 1 mg PO HS 09/28/21 [History] Gabapentin [Neurontin] 300 mg PO TID 30 Days #90 cap 10/05/21 [Rx] OLANZapine [ZyPREXA] 5 mg PO DAILY 30 Days tab 10/05/21 [Rx] OLANZapine [ZyPREXA] 10 mg PO HS 30 Days tab 10/05/21 [Rx] Follow up Appointment(s)/Referral(s): [facility] [Outside] - 10/14/21 10:00 am (10/14 @ 10:00 [facility] follow-up w/ Hadley Adame 10/18 @ 8:30am- [facility] appt with Ana Cristina Echols ) None,Stated [Primary Care Provider] - 1-2 days Activity/Diet/Wound Care/Special Instructions: Activity and diet as tolerated. Avoid the use of street drugs and alcohol. Take all medications as prescribed. When you are in need of refills on your medications please contact your medical provider and/or outpatient psychiatrist to have this done. Please go to scheduled outpatient appointment for aftercare treatment. If symptoms return or become worse, call the crisis line at and/or go to the nearest emergency room for evaluation Discharge Disposition: HOME SELF-CARE
== END 2021-10-05 13:55 | disposition home or self-care (01) | DRG 885 ==
LOC: EC 13:15 → 3MHU 19:02
PROVIDERS: ADMIT Psychiatry & Neurology Psychiatry; ATTEND Psychiatry & Neurology Psychiatry
DX: F25.9 Schizoaffective disorder, unspecified (principal); F12.20 Cannabis dependence, uncomplicated; F31.9 Bipolar disorder, unspecified; F41.9 Anxiety disorder, unspecified; F63.81 Intermittent explosive disorder; F84.0 Autistic disorder; Z79.899 Other long term (current) drug therapy; Z82.49 Family history of ischemic heart disease and other diseases of the circulatory system; Z91.51 Personal history of suicidal behavior; Z20.822 Contact with and (suspected) exposure to COVID-19
CPT/HCPCS: 80053; 80061; 80306; 82075; 83036; 84443; 85025; 87635; 99285

== ENCOUNTER 2021-11-07 18:25 | Inpatient (IN) | payer MEDICAID, OTHER ==
--- NOTE | 2021-11-08 01:42 | ED ---
Psych HPI - General Chief Complaint: Psychiatric Symptoms Stated Complaint: EPS Time Seen by Provider: 11/08/21 01:26 Source: patient, RN notes reviewed, old records reviewed Mode of arrival: ambulatory Limitations: no limitations - History of Present Illness Initial Comments: This is a 31-year-old male refuses to participate history taking coming in for psychiatric evaluation and treatment management with long psychiatric history MD Complaint: suicidal ideation, feels depressed -: unknown Associated Psychiatric Symptoms: depression, suicidal ideation, racing thoughts History of same: Yes Quality: constant, getting worse Improves With: none Worsens With: none Context: significant life stressor Associated Symptoms: denies other symptoms Treatments Prior to Arrival: placed on mental health hold - Related Data Previous Rx's Medication Instructions Recorded FLUoxetine HCL [PROzac] 30 mg PO DAILY 30 Days cap 11/10/21 QUEtiapine [SEROquel] 250 mg PO HS 30 Days tab 11/10/21 Allergies Allergy/AdvReac Type Severity Reaction Status Date / Time No Known Allergies Allergy Verified 11/08/21 04:51 Review of Systems ROS Statement: Those systems with pertinent positive or pertinent negative responses have been documented in the HPI. ROS Other: All systems not noted in ROS Statement are negative. Past Medical History Past Medical History: No Reported History Additional Past Medical History / Comment(s): autism History of Any Multi-Drug Resistant Organisms: None Reported Past Surgical History: No Surgical Hx Reported Past Anesthesia/Blood Transfusion Reactions: No Reported Reaction Past Psychological History: Depression Smoking Status: Never smoker Past Alcohol Use History: Rare Past Drug Use History: Marijuana - Past Family History Mother Additional Family Medical History / Comment(s): Mother is alive at age 60 with history of bipolar, Crohn's disease Father Family Medical History: Myocardial Infarction ([place]) Additional Family Medical History / Comment(s): Father is alive at age 55 with history of 2 myocardial infarctions. Sister(s) Additional Family Medical History / Comment(s): He has one sister with no major medical problems. General Exam Limitations: no limitations General appearance: alert, in no apparent distress Head exam: Present: atraumatic, normocephalic, normal inspection Eye exam: Present: normal appearance, PERRL, EOMI. Absent: scleral icterus, conjunctival injection, periorbital swelling ENT exam: Present: normal exam, mucous membranes moist Neck exam: Present: normal inspection. Absent: tenderness, meningismus, lymphadenopathy Respiratory exam: Present: normal lung sounds bilaterally. Absent: respiratory distress, wheezes, rales, rhonchi, stridor Cardiovascular Exam: Present: regular rate, normal rhythm, normal heart sounds. Absent: systolic murmur, diastolic murmur, rubs, gallop, clicks GI/Abdominal exam: Present: soft, normal bowel sounds. Absent: distended, tenderness, guarding, rebound, rigid Extremities exam: Present: normal inspection, full ROM, normal capillary refill. Absent: tenderness, pedal edema, joint swelling, calf tenderness Back exam: Present: normal inspection Neurological exam: Present: alert, oriented X3, CN II-XII intact Psychiatric exam: Present: normal affect, normal mood Skin exam: Present: warm, dry, intact, normal color. Absent: rash Course Vital Signs 11/07/21 18:33 Temperature 99.1 F Pulse Rate 83 Respiratory 18 Rate Blood Pressure 113/70 O2 Sat by Pulse 98 Oximetry - Reevaluation(s) Reevaluation #1: 11/08/21 Medical record is reviewed Medical clear for psychiatry Medical Decision Making - Medical Decision Making 31 male seen and evaluated psychiatry, will be admitted for psychiatric evaluation and treatment - Lab Data Result diagrams: 11/09/21 07:28 11/09/21 07:28 Lab Results 11/08/21 Range/Units 03:07 Coronavirus (PCR) Not Detected (Not Detectd) Disposition Clinical Impression: Depression, Schizoaffective disorder, Suicidal ideation Disposition: TRANSFER TO PSYCH HOSP/UNIT Condition: Fair Is patient prescribed a controlled substance at d/c from ED?: No
[2021-11-08] MEDS ORDERED: LORazepam 1 MG TAB PO PRN (04:43)
[2021-11-08] MEDS ORDERED: ACETAMINOPHEN TAB 325 MG TAB PO PRN (04:43)
[2021-11-08] MEDS ORDERED: MAG HYDROX/AL HYDROX/SIMETH 30 ML CUP PO PRN (04:43)
[2021-11-08] MEDS ORDERED: MAGNESIUM HYDROXIDE 2,400 MG/10 ML CUP PO PRN (04:43)
[2021-11-08] MEDS ORDERED: HALOPERIDOL LACTATE 5 MG/ML 1 ML VIAL IM PRN (04:43)
[2021-11-08] MEDS ORDERED: LORazepam 2 MG/ML INJ IM PRN (04:48)
[2021-11-08] MEDS ORDERED: haloperidoL 5 MG TAB PO PRN (04:49)
[2021-11-08 05:57] VITALS: TEMP 97.7
[2021-11-08] MEDS ORDERED: GABAPENTIN 300 MG CAP PO SCH (09:00)
[2021-11-08] MEDS ORDERED: FLUoxetine HCL 20 MG CAP PO STA (10:24)
--- NOTE | 2021-11-08 13:26 | P.HP ---
Psychiatric H&P - . H&P Date: 11/08/21 History & Physical: Allergies Allergy/AdvReac Type Severity Reaction Status Date / Time No Known Allergies Allergy Verified 11/08/21 04:51 Vital Signs Temp 97.7 F 11/08/21 05:45 Pulse 73 11/08/21 05:45 Resp 20 11/08/21 05:45 BP 113/70 11/07/21 18:33 Pulse Ox 98 11/07/21 18:33 FiO2 Intake & Output 11/07/21 11/08/21 11/08/21 18:59 06:59 18:59 Weight 95.254 kg 95.254 kg Laboratory Last Values Coronavirus (PCR) Not Detected (Not Detectd) 11/08/21 03:07 11/08/21 13:26 IDENTIFYING DATA: Patient is a single, unemployed, 31-year-old male with a significant history of autism spectrum disorder who is currently a resident at [facility] who presents to the emergency department on his own volition complaining of suicidal ideation. HPI: Patient presented to the hospital on 11/08/2021, brought in for increased depression and suicidal ideation. The patient reports that he has been aggressive in his custodial but continues to own a significant amount of money to his previous housing. He has a history of prior property damages and states he owes $2000. The patient expresses feelings of hopelessness, helplessness, ex cessive guilt, and suicidal ideation. The patient states that he would become very angry and this would result in him causing significant property damage. The patient signed himself voluntarily on to the psychiatric unit. The patient does not report any significant symptoms psychosis at this time. He denies any auditory or visual hallucinations. In regards to bipolar symptoms, the patient denies any periods of excessive energy, grandiosity, racing thoughts, or pressured speech. The patient reports previous diagnoses of autism spectrum disorder, and judgment also disorder, and a mood disorder. He was last discharged from the psychiatric unit in September 2021 on a regimen of Zyprexa, Neurontin, and guanfacine. Prior to this, he was on a regimen of Paxil and Trileptal. Patient reports he was adherent with his medications however they were beginning to taper Zyprexa over the past few outpatient appointments due to concerns for oversedation. PAST PSYCHIATRIC HISTORY: Patient has periods diagnoses of autism spectrum disorder, mood disorder, and cannabis use disorder. The patient has child medications including Paxil, Trileptal, guanfacine, Neurontin, and Zyprexa. The patient has had multiple psychiatric hospitalizations with the last time being in September 2021. He is currently open with [facility]. The patient reports a prior attempt at suicide. PMH: Past Medical History: No Reported History Additional Past Medical History / Comment(s): autism History of Any Multi-Drug Resistant Organisms: None Reported Past Surgical History: No Surgical Hx Reported Past Anesthesia/Blood Transfusion Reactions: No Reported Reaction Past Psychological History: Depression Smoking Status: Never smoker Past Alcohol Use History: Rare Past Drug Use History: Marijuana ALLERGIES: NO KNOWN DRUG ALLERGIES CHEMICAL DEPENDENCY HISTORY: The patient reports frequent and almost daily marijuana use. He reports rare alcohol use. He denies any tobacco or illicit drug use. FAMILY PSYCHIATRIC/SUBSTANCE USE HISTORY: Patient reports his mother was bipolar. SOCIAL HISTORY: Patient is currently a resident at the [facility]. He is single, never , and has no children. Is currently unemployed. MENTAL STATUS EXAM: General Appearance: Patient appears to be stated age is alert, directable, and attempts to cooperate. Patient appears to have fair hygiene and grooming. The patient has noticeable laceration on his forehead that is self-inflicted. Behavior: Patient is seated without any agitated behavior. Psychomotor activity is normal. Eye contact is appropriate. Speech: Patient's speech is fluent and nonpressured. Mood/Affect: Patient reports their mood is depressed, affect is incongruent as he appears to be euthymic. Suicidality/Homicidality: The patient is endorsing suicidal ideation however no homicidal ideation. Perceptions: Patient denies any visual hallucinations and denies any auditory hallucinations Though content/process: There is no evidence of any delusional thought content and thought process is linear and goal-directed. Memory and concentration: AOX3, grossly intact for the purposes of this session. Can spell "WORLD" backwards Judgment and insight: poor STRENGTHS/WEAKNESSES: Strength is that the patient is in relatively good health. Weakness is that the patient has autism spectrum disorder and poor coping ski lls. INTELLECT: average IMPRESSIONS: Bipolar 2 disorder, depressive episode Autism spectrum disorder Intermittent explosive disorder Cannabis use disorder PLAN: -Patient is admitted under voluntary status to [facility] for stabilization of psychiatric symptoms and safety. Patient signed adult voluntary form and medication consent and is placed in patient's chart. -Medications : Will start patient on Prozac 20 mg by mouth daily for depression/anxiety Seroquel 300 mg by mouth at bedtime for mood stabilization/bipolar depression -Ativan and Haldol PRN for agitation/aggression -Patient was counselled on substance abuse and desired to cut back on use -Patient was informed of the risks, benefits and side effects of the medication and patient verbally consented to taking the medications. Patient signed med consent form and was placed in chart. -Internal Medicine consult to perform medical evaluation and physical. -SW on board for discharge planning. Encourage patient to participate in groups to work on coping skills. 11/08/21 13:26
[2021-11-08] MEDS: QUEtiapine 100 MG TAB PO SCH (20:29)
[2021-11-09 08:17] LABS: Basophils # (A) 0.1 k/uL (0-0.2); Basophils % (A) 1 %; Eosinophils # (A) 0.2 k/uL (0-0.7); Eosinophils % (A) 3 %; HCT 46.8 % (39.0-53.0); Lymphocytes # (A) 1.4 k/uL (1.0-4.8); Lymphocytes % (A) 20 %; MCH 31.1 pg (25.0-35.0); MCHC 34.1 g/dL (31.0-37.0); MCV 91.4 fL (80.0-100.0); Mean Platelet Volume 9.3; Monocytes # (A) 0.5 k/uL (0-1.0); Monocytes % (A) 7 %; Neutrophils # (A) 4.7 k/uL (1.3-7.7); Neutrophils % (A) 68 %; Platelet Count 208 k/uL (150-450); RBC 5.13 m/uL (4.30-5.90); RDW 12.5 % (11.5-15.5)
[2021-11-09 08:42] LABS: ALT 37 U/L (4-49); AST 28 U/L (17-59); African American GFR (CKD) >90 (>60 ml/min/1.73 sqM); Albumin 4.6 g/dL (3.5-5.0); Alkaline Phosphatase 60 U/L (38-126); Anion Gap 8 mmol/L; Blood Urea Nitrogen 22 mg/dL (9-20); Calcium 9.3 mg/dL (8.4-10.2); Carbon Dioxide 28 mmol/L (22-30); Chloride 104 mmol/L (98-107); Glucose 94 mg/dL (74-99); Non-African American GFR(CKD) >90 (>60 ml/min/1.73 sqM); Potassium 4.5 mmol/L (3.5-5.1); Sodium 140 mmol/L (137-145); Total Bilirubin 0.4 mg/dL (0.2-1.3); Total Protein 7.3 g/dL (6.3-8.2)
[2021-11-09] MEDS: FLUoxetine HCL 10 MG CAP PO SCH (08:42)
--- NOTE | 2021-11-09 13:10 | P.PN ---
Progress Note - Text Progress Note Date: 11/09/21 Interval History: Patient was seen wandering the hallways and was directable and agreeable to speak with marketing underwriter in the office. Patient reports that she is feeling significantly better today. He is currently denying any suicidal or homicidal ideation, intention, and/or plan. He is not reporting any auditory or visualizations. He is denying any paranoia or other delusions. He reports that he has not been experiencing as much anger as before. He states that he has been practicing focusing on certain objects and working on meditation. He reports improved sleep and a fair appetite. He does express some concern that the Seroquel might be too sedating however is agreeable to continue to take the medication in order to address his mood stability. Mental Status Exam: General Appearance: Patient appears to be stated age is alert, directable, and cooperative. Behavior: Patient is calmly seated without any agitated behavior. Speech: Patient's speech is fluent and nonpressured. Mood/Affect: Mood is improving mildly, affect is congruent and constricted. Suicidality/Homicidality: Patient denies having any suicidal or homicidal ideation intent or plan. Perceptions: Patient denies any visual hallucinations and denies any auditory hallucinations Though content/process: There is no evidence of any delusional thought content and thought process is linear and goal-directed. Memory and concentration: AOX3, grossly intact for the purposes of this session Judgment and insight: Improving mildly Vital Signs Temp 97.7 F 11/09/21 06:41 Pulse 78 11/09/21 06:41 Resp 20 11/08/21 05:45 BP 131/62 11/09/21 06:41 Pulse Ox 98 11/07/21 18:33 FiO2 Laboratory Results - Last 24 Hours 11/09/21 11/09/21 11/09/21 07:28 07:28 07:28 WBC 7.0 RBC 5.13 Hgb 16.0 Hct 46.8 MCV 91.4 MCH 31.1 MCHC 34.1 RDW 12.5 Plt Count 208 MPV 9.3 Neutrophils % 68 Lymphocytes % 20 Monocytes % 7 Eosinophils % 3 Basophils % 1 Neutrophils # 4.7 Lymphocytes # 1.4 Monocytes # 0.5 Eosinophils # 0.2 Basophils # 0.1 Sodium 140 Potassium 4.5 Chloride 104 Carbon Dioxide 28 Anion Gap 8 BUN 22 H Creatinine 0.91 Est GFR (CKD-EPI)AfAm >90 Est GFR (CKD-EPI)NonAf >[address] Glu mg/dL 105 Hemoglobin A1c 5.3 Calcium 9.3 Total Bilirubin 0.4 AST 28 ALT 37 Alkaline Phosphatase 60 Total Protein 7.3 Albumin 4.6 TSH 1.740 Assessment Bipolar 2 disorder, depressive episode Autism spectrum disorder Intermittent explosive disorder Cannabis use disorder Plan: -Patient continues to meet criteria for inpatient psychiatric admission for symptom stabilization and safety. Patient has signed adult voluntary form and medication consent and was placed in patient's chart. -Medications: Prozac 30 mg by mouth daily for depression/anxiety Seroquel 300 mg by mouth at bedtime for mood stabilization/bipolar depression -When necessary Ativan and Haldol for agitation/aggression. -SW on board for discharge planning. Encouraged the patient to participate in milieu.
[2021-11-09 14:40] LABS: Chol/HDL Ratio 5.46 Ratio; LDL Cholesterol,Calculated 168.1 mg/dL (0.0-131.0)
[2021-11-09] MEDS: QUEtiapine 100 MG TAB PO SCH (20:33)
[2021-11-10 03:46] VITALS: BP 123/89; PULSE 97; RESP 18
--- NOTE | 2021-11-10 04:29 | P.CONS ---
History of Present Illness - Reason for Consult Consult date: 11/10/21 - History of Present Illness The patient is a 31-year-old male with a PMH of hypertension, marijuana abuse, and marijuana abuse who was admitted for psychiatric evaluation. The patient was admitted to the mental health unit where he was seen and evaluated. Patient reports having difficulty with hallucinations, which are making him worried that he may hurt someone. The patient denied any physical complaints at the time of interview. He denied smoking tobacco. Admitted to using marijuana. Denied chest discomfort, shortness of breath, fever, chills, cough, nausea, vomiting, abdominal pain, diarrhea. Laboratory evaluation was reviewed. Review of systems: Pertinent positives and negatives as discussed in HPI, a complete review of systems was performed and all other systems are negative. Physical examination: General: non toxic, no distress, appears at stated age, normal weight Derm: no unusual rashes/lesions no unusual ecchymoses, warm, dry Head: atraumatic, normocephalic, symmetric Eyes: EOMI, no lid lag, anicteric sclera, pupils equal round reactive to light ENT: Nose and ears atraumatic, no thrush, no pharyngeal erythema Neck: No thyromegaly, no cervical lymphadenopathy, trachea midline, supple Mouth: no lip lesion, mucus membranes moist Cardiovascular: S1S2 reg, no murmur, positive posterior tibial pulse bilateral, no edema, capillary refill less than 2 seconds Lungs: CTA bilateral, no rhonchi, no rales , no accessory muscle use Abdominal: soft, nontender to palpation, no guarding, no appreciable organomegaly, normal bowel sounds Ext: no gross muscle atrophy, muscle strength 5 out of 5 in all 4 extremities grossly, no contractures, Neuro: CN II-XI grossly intact, light touch intact all 4 extremities, finger to nose within normal limits, Psych: Alert, oriented, appropriate affect Assessment/plan Marijuana abuse -Advised on the importance of cessation Hypertension -Continue the medications Psychosis -As per psychiatry Thank you for allowing us to participate in the care of this patient. We will follow peripherally. Do not hesitate to contact us with questions. Someone can be reached from the [facility] hospitalist group at all hours of the day at [phone]. Past Medical History Past Medical History: No Reported History Additional Past Medical History / Comment(s): autism History of Any Multi-Drug Resistant Organisms: None Reported Past Surgical History: No Surgical Hx Reported Past Anesthesia/Blood Transfusion Reactions: No Reported Reaction Smoking Status: Current every day smoker - Past Family History Mother Additional Family Medical History / Comment(s): Mother is alive at age 60 with history of bipolar, Crohn's disease Father Family Medical History: Myocardial Infarction ([place]) Additional Family Medical History / Comment(s): Father is alive at age 55 with history of 2 myocardial infarctions. Sister(s) Additional Family Medical History / Comment(s): He has one sister with no major medical problems. Medications and Allergies Home Medications Medication Instructions Recorded Confirmed Type guanFACINE HCL [guanFACINE HCL ER] 1 mg PO HS 09/28/21 11/08/21 History Gabapentin [Neurontin] 300 mg PO TID 30 Days #90 cap 10/05/21 11/08/21 Rx OLANZapine [ZyPREXA] 5 mg PO DAILY 30 Days tab 10/05/21 11/08/21 Rx OLANZapine [ZyPREXA] 10 mg PO HS 30 Days tab 10/05/21 11/08/21 Rx Allergies Allergy/AdvReac Type Severity Reaction Status Date / Time No Known Allergies Allergy Verified 11/08/21 04:51 Physical Exam Vitals: Vital Signs Temp Pulse Resp BP Pulse Ox 11/10/21 03:46 97 18 123/89 97 11/09/21 06:41 97.7 F 78 131/62 Results CBC & Chem 7: 11/09/21 07:28 11/09/21 07:28 Labs: Abnormal Lab Results - Last 24 Hours (Table) 11/09/21 Range/Units 07:28 BUN 22 H (9-20) mg/dL Triglycerides 193.00 H (0.00-149.00) mg/dL Cholesterol 253.00 H (0.00-200.00) mg/dL LDL Cholesterol, Calc 168.1 H (0.0-131.0) mg/dL
[2021-11-10] MEDS: FLUoxetine HCL 10 MG CAP PO SCH (09:17)
--- NOTE | 2021-11-10 11:21 | P.DS ---
Providers Date of admission: 11/08/21 04:34 Expected date of discharge: 11/10/21 Attending physician: Jluis Torres MD Consults: 11/08/21 04:43 Consult Physician Routine Consulting Provider: [facility] Consult Reason/Comments: For H & P for Medical Follow Up Do you want consulting provider notified?: Yes Primary care physician: Physician Nonstaff - Discharge Diagnosis(es) (1) Bipolar 2 disorder, major depressive episode Current Visit: Yes Status: Acute Priority: High (2) Intermittent explosive disorder in adult Current Visit: Yes Status: Chronic Priority: Medium (3) Autistic spectrum disorder with isolated skills Current Visit: Yes Status: Chronic Priority: Medium (4) Cannabis use disorder, moderate, dependence Current Visit: Yes Status: Chronic Priority: Medium Hospital Course: Admission HPI: Patient is a single, unemployed, 31-year-old male with a significant history of autism spectrum disorder who is currently a resident at [facility] who presents to the emergency department on his own volition complaining of suicidal ideation. Patient presented to the hospital on 11/08/2021, brought in for increased depression and suicidal ideation. The patient reports that he has been aggressive in his half-way but continues to own a significant amount of money to his previous housing. He has a history of prior property damages and states he owes $2000. The patient expresses feelings of hopelessness, helplessness, excessive guilt, and suicidal ideation. The patient states that he would become very angry and this would result in him causing significant property damage. The patient signed himself voluntarily on to the psychiatric unit. The patient does not report any significant symptoms psychosis at this time. He denies any auditory or visual hallucinations. In regards to bipolar symptoms, the patient denies any periods of excessive energy, grandiosity, racing thoughts, or pressured speech. The patient reports previous diagnoses of autism spectrum disorder, and judgment also disorder, and a mood disorder. He was last discharged from the psychiatric unit in September 2021 on a regimen of Zyprexa, Neurontin, and guanfacine. Prior to this, he was on a regimen of Paxil and Trileptal. Patient reports he was adherent with his medications however they were beginning to taper Zyprexa over the past few outpatient appointments due to concerns for oversedation. Patient has periods diagnoses of autism spectrum disorder, mood disorder, and cannabis use disorder. The patient has child medications including Paxil, Trileptal, guanfacine, Neurontin, and Zyprexa. The patient has had multiple psychiatric hospitalizations with the last time being in September 2021. He is currently open with [facility]. The patient reports a prior attempt at suicide. Hospital course: Upon admission to the unit patient was initially endorsing suicidal ideation, anger, and mood swings. Patient was however directable and agreeable to commence treatment. Patient got along well with other patients on the unit and followed unit protocol. Patient was compliant with the medications and denied any side effects throughout hospital course. Patient was started on a regimen of Prozac and Seroquel to address bipolar depression and agitation. Patient spoke of his stressors and engaged in therapy both group and individual. Patient was also seen by medical team for history and physical exam. With this regimen, the patient displayed significant improvement in regards to his target symptoms of mood stability and depression. He became more future and goal oriented and had a significant decrease in suicidal thoughts. On the day of discharge, the patient is not reporting any suicidal or homicidal ideation, intention, and/or plan. He is not reporting any auditory or visual agents. He denies any access to firearms or other weapons. The patient reports no paranoia or other delusions at this time. The patient has been adherent with his medications and is not reporting any significant side effects. The patient was counseled at length and the points medication adherence and appropriate outpatient follow-up. Furthermore, the patient does have significant history of cannabis use and his counselor at great length on abstaining from all substances including alcohol, marijuana, and cannabis. Prior to discharge, family meeting will be arranged by clinical social work therapist to answer questions and ensure safety. Mental status exam: General Appearance: Patient appears to be stated age is alert, pleasant, and cooperative. Patient is in no acute distress and has fair hygiene and grooming Behavior: Patient is calmly seated without any agitated behavior. Speech: Patient's speech is fluent and nonpressured. Mood/Affect: Patient reports their mood is "going good", affect is congruent and euthymic. Suicidality/Homicidality: Patient denies having any suicidal or homicidal ideation intent or plan. Perceptions: Patient denies any auditory or visual hallucinations. Though content/process: There is no evidence of any delusional thought content and thought process is linear and goal-directed. Patient is future oriented. Memory and concentration: AOX3, grossly intact for the purposes of this session. Can spell "WORLD" backwards correctly. Judgment and insight: Improved with guarded prognosis Vital Signs Temp 97.7 F 11/09/21 06:41 Pulse 97 11/10/21 03:46 Resp 18 11/10/21 03:46 BP 123/89 11/10/21 03:46 Pulse Ox 97 11/10/21 03:46 FiO2 Laboratory Results WBC 7.0 k/uL (3.8-10.6) 11/09/21 07:28 RBC 5.13 m/uL (4.30-5.90) 11/09/21 07:28 Hgb 16.0 gm/dL (13.0-17.5) 11/09/21 07:28 Hct 46.8 % (39.0-53.0) 11/09/21 07:28 MCV 91.4 fL (80.0-100.0) 11/09/21 07:28 MCH 31.1 pg (25.0-35.0) 11/09/21 07:28 MCHC 34.1 g/dL (31.0-37.0) 11/09/21 07:28 RDW 12.5 % (11.5-15.5) 11/09/21 07:28 Plt Count 208 k/uL (150-450) 11/09/21 07:28 MPV 9.3 11/09/21 07:28 Neutrophils % 68 % 11/09/21 07:28 Lymphocytes % 20 % 11/09/21 07:28 Monocytes % 7 % 11/09/21 07:28 Eosinophils % 3 % 11/09/21 07:28 Basophils % 1 % 11/09/21 07:28 Neutrophils # 4.7 k/uL (1.3-7.7) 11/09/21 07:28 Lymphocytes # 1.4 k/uL (1.0-4.8) 11/09/21 07:28 Monocytes # 0.5 k/uL (0-1.0) 11/09/21 07:28 Eosinophils # 0.2 k/uL (0-0.7) 11/09/21 07:28 Basophils # 0.1 k/uL (0-0.2) 11/09/21 07:28 Sodium 140 mmol/L (137-145) 11/09/21 07:28 Potassium 4.5 mmol/L (3.5-5.1) 11/09/21 07:28 Chloride 104 mmol/L (98-107) 11/09/21 07:28 Carbon Dioxide 28 mmol/L (22-30) 11/09/21 07:28 Anion Gap 8 mmol/L 11/09/21 07:28 BUN 22 mg/dL (9-20) H 11/09/21 07:28 Creatinine 0.91 mg/dL (0.66-1.25) 11/09/21 07:28 Est GFR (CKD-EPI)AfAm >90 (>60 ml/min/1.73 sqM) 11/09/21 07:28 Est GFR (CKD-EPI)NonAf >90 (>60 ml/min/1.73 sqM) 11/09/21 07:28 Glucose 94 mg/dL (74-99) 11/09/21 07:[address] Glu mg/dL 105 11/09/21 07:28 Hemoglobin A1c 5.3 % (0.0-6.0) 11/09/21 07:28 Calcium 9.3 mg/dL (8.4-10.2) 11/09/21 07:28 Total Bilirubin 0.4 mg/dL (0.2-1.3) 11/09/21 07:28 AST 28 U/L (17-59) 11/09/21 07:28 ALT 37 U/L (4-49) 11/09/21 07:28 Alkaline Phosphatase 60 U/L (38-126) 11/09/21 07:28 Total Protein 7.3 g/dL (6.3-8.2) 11/09/21 07:28 Albumin 4.6 g/dL (3.5-5.0) 11/09/21 07:28 Triglycerides 193.00 mg/dL (0.00-149.00) H 11/09/21 07:28 Cholesterol 253.00 mg/dL (0.00-200.00) H 11/09/21 07:28 LDL Cholesterol, Calc 168.1 mg/dL (0.0-131.0) H 11/09/21 07:28 VLDL Cholesterol, Calc 38.60 mg/dL (5.00-40.00) 11/09/21 07:28 HDL Cholesterol 46.30 mg/dL (40.00-60.00) 11/09/21 07:28 Cholesterol/HDL Ratio 5.46 Ratio 11/09/21 07:28 TSH 1.740 mIU/L (0.465-4.680) 11/09/21 07:28 Coronavirus (PCR) Not Detected (Not Detectd) 11/08/21 03:07 Allergies Allergy/AdvReac Type Severity Reaction Status Date / Time No Known Allergies Allergy Verified 11/08/21 04:51 Impression: Bipolar 2 disorder, depressive episode Autism spectrum disorder Intermittent explosive disorder Cannabis use disorder Plan: -Continue with discharge today as patient has improved and stabilized psychiatrically and is not currently an imminent threat to himself and/or others. Patient will remain at chronically elevated risk due to his autism spectrum disorder. -Continue medications: Prozac 30 mg by mouth daily for depression Seroquel 250 mg daily at bedtime for mood stabilization -Patient was counseled on the need for medication compliance and appropriate follow-up at mental health and also primary care for medical issues. Patient verbalized understanding and agreed. -Social work to arrange for and conduct family meeting to ensure safety upon discharge and answer any questions/concerns. Social work also to arrange for patients follow up appointments with [facility] for psychiatric care along with follow up with primary care provider. -Patient counseled on abstaining from recreational drugs and marijuana and alcohol. Was informed/educated on the adverse effects on their physical and mental health. Patient verbally agreed and understood. -Patient was instructed to return to the hospital or seek immediate medical care if their psychiatric or medical symptoms do worsen or reoccur. -Psychoeducation and supportive therapy provided to patient. Risks and benefits of pharmacological treatment versus the risks and benefits of nontreatment weight and discussed. Informed consent discussion held. Common side effects of psychotropics discussed such as, but not limited to headache, GI disturbance, sexual dysfunction, movement disorders, sedation, and orthostatic hypotension. Life threatening and blackbox warnings of prescribed medications also discussed. Potential risks of operating a vehicle or heavy machinery discussed with patient at length. Advised on importance of compliance and a reliable and responsible manner. Patient advised to review FDA consumer labeling of all medications prior to taking. Patient verbalized understanding of potential risks, and agrees with current treatment plan. Patient advised to medically contact physician/emergency personnel if any acute changes in condition occur. Patient Condition at Discharge: Stable Plan - Discharge Summary Discharge Rx Participant: No New Discharge Prescriptions: New FLUoxetine HCL [PROzac] 30 mg PO DAILY 30 Days cap QUEtiapine [SEROquel] 250 mg PO HS 30 Days tab Discontinued Gabapentin [Neurontin] 300 mg PO TID 30 Days #90 cap guanFACINE HCL [guanFACINE HCL ER] 1 mg PO HS OLANZapine [ZyPREXA] 5 mg PO DAILY 30 Days tab OLANZapine [ZyPREXA] 10 mg PO HS 30 Days tab Discharge Medication List FLUoxetine HCL [PROzac] 30 mg PO DAILY 30 Days cap 11/10/21 [Rx] QUEtiapine [SEROquel] 250 mg PO HS 30 Days tab 11/10/21 [Rx] Follow up Appointment(s)/Referral(s): [facility] [Outside] - 11/11/21 1:00 pm (11/11/21 1:00-2:00PM with [place] 11/17/21 10:30-11:00AM with Mary Echols) Nonstaff,Physician [Primary Care Provider] - 1-2 days Discharge Disposition: HOME SELF-CARE
[2021-11-10 11:35] LABS: Appearance,Urine Clear (Clear); Bilirubin,Urine Negative (Negative); Blood,Urine Negative (Negative); Color,Urine Light Yellow; Glucose,Urine (UA) Negative (Negative); Ketones,Urine Negative (Negative); Leukocyte Esterase,Urine Negative (Negative); Nitrite,Urine Negative (Negative); PH, Urine 6.5 (5.0-8.0); Protein,Urine Negative (Negative); Urobilinogen,Urine <2.0 mg/dL (<2.0)
[2021-11-10] MEDS ORDERED: QUEtiapine 100 MG TAB PO SCH (21:00)
[2021-11-10 21:52] LABS: Urine Alcohol Negative (Negative); Urine Barbiturate Negative (Negative); Urine Cocaine Negative (Negative); Urine Methadone Negative (Negative); Urine Opiates Negative (Negative); Urine Phencyclidine Negative (Negative)
== END 2021-11-10 13:13 | disposition home or self-care (01) | DRG 885 ==
LOC: EC 18:25 → 3MHU 11-08 04:34
PROVIDERS: ADMIT Psychiatry & Neurology Psychiatry; ATTEND Psychiatry & Neurology Psychiatry
DX: F31.81 Bipolar II disorder (principal); R45.851 Suicidal ideations; F12.20 Cannabis dependence, uncomplicated; Z20.822 Contact with and (suspected) exposure to COVID-19; Z28.310 Unvaccinated for COVID-19; F63.81 Intermittent explosive disorder; F84.0 Autistic disorder; I10 Essential (primary) hypertension; Z79.899 Other long term (current) drug therapy; Z56.0 Unemployment, unspecified; Z82.49 Family history of ischemic heart disease and other diseases of the circulatory system; Z81.8 Family history of other mental and behavioral disorders; Z83.79 Family history of other diseases of the digestive system
CPT/HCPCS: 80053; 80061; 80306; 81003; 82075; 83036; 84443; 85025; 87635; 99285

== ENCOUNTER 2022-11-05 12:05 | Inpatient (IN) | payer MEDICAID, OTHER ==
--- NOTE | 2022-11-05 12:50 | ED ---
Psych HPI - General Chief Complaint: Psychiatric Symptoms Stated Complaint: mental health Time Seen by Provider: 11/05/22 12:24 Source: patient, RN notes reviewed, old records reviewed Mode of arrival: ambulatory - History of Present Illness Initial Comments: This is a 32-year-old male DF today. Presents today for evaluation of psychiatric illness patient is denying drugs or alcohol today. Patient doesn't homicidal thoughts currently. MD Complaint: feels depressed -: days(s) Associated Psychiatric Symptoms: depression, suicidal ideation, racing thoughts Quality: getting worse Improves With: none Worsens With: none Context: significant life stressor Associated Symptoms: denies other symptoms Treatments Prior to Arrival: placed on mental health hold If Self Harm: admits thoughts of self harm - Related Data Home Medications Medication Instructions Recorded Confirmed QUEtiapine FUMARATE [SEROquel XR] 300 mg PO HS 11/05/22 11/05/22 QUEtiapine [SEROquel] 100 mg PO HS 11/05/22 11/05/22 Vitamin D3 50,000iu 1,250 mcg PO Q7D 11/05/22 11/05/22 Previous Rx's Medication Instructions Recorded FLUoxetine HCL [PROzac] 30 mg PO DAILY 30 Days cap 11/10/21 Allergies Allergy/AdvReac Type Severity Reaction Status Date / Time No Known Allergies Allergy Verified 11/05/22 16:41 Review of Systems ROS Statement: Those systems with pertinent positive or pertinent negative responses have been documented in the HPI. ROS Other: All systems not noted in ROS Statement are negative. Past Medical History Past Medical History: No Reported History Additional Past Medical History / Comment(s): autism History of Any Multi-Drug Resistant Organisms: None Reported Past Surgical History: No Surgical Hx Reported Past Anesthesia/Blood Transfusion Reactions: No Reported Reaction Past Psychological History: Depression Smoking Status: Never smoker Past Alcohol Use History: Rare Past Drug Use History: Marijuana - Past Family History Mother Additional Family Medical History / Comment(s): Mother is alive at age 60 with history of bipolar, Crohn's disease Father Family Medical History: Myocardial Infarction ([place]) Additional Family Medical History / Comment(s): Father is alive at age 55 with history of 2 myocardial infarctions. Sister(s) Additional Family Medical History / Comment(s): He has one sister with no major medical problems. General Exam Limitations: no limitations General appearance: alert, in no apparent distress Head exam: Present: atraumatic, normocephalic, normal inspection Eye exam: Present: normal appearance, PERRL, EOMI. Absent: scleral icterus, conjunctival injection, periorbital swelling ENT exam: Present: normal exam, mucous membranes moist Neck exam: Present: normal inspection. Absent: tenderness, meningismus, lymphadenopathy Respiratory exam: Present: normal lung sounds bilaterally. Absent: respiratory distress, wheezes, rales, rhonchi, stridor Cardiovascular Exam: Present: regular rate, normal rhythm, normal heart sounds. Absent: systolic murmur, diastolic murmur, rubs, gallop, clicks GI/Abdominal exam: Present: soft, normal bowel sounds. Absent: distended, tenderness, guarding, rebound, rigid Extremities exam: Present: normal inspection, full ROM, normal capillary refill. Absent: tenderness, pedal edema, joint swelling, calf tenderness Back exam: Present: normal inspection Neurological exam: Present: alert, oriented X3, CN II-XII intact Psychiatric exam: Present: normal affect, normal mood Skin exam: Present: warm, dry, intact, normal color. Absent: rash Course Vital Signs 11/05/22 12:13 Temperature 98 F Pulse Rate 75 Respiratory 18 Rate Blood Pressure 138/83 O2 Sat by Pulse 100 Oximetry - Reevaluation(s) Reevaluation #1: 11/05/22 13:45 Medical record is reviewed Reevaluation #2: 11/05/22 13:45 Medical clear for psychiatry Medical Decision Making - Medical Decision Making 32 male will be admitted for psychiatric evaluation and treatment - Lab Data Lab Results 11/05/22 11/05/22 11/05/22 Range/Units 14:13 14:15 15:44 Urine Color Yellow Urine Appearance Clear (Clear) Urine pH 6.0 (5.0-8.0) Ur Specific [place] 1.026 (1.001-1.035) Urine Protein Trace H (Negative) Urine Glucose (UA) Negative (Negative) Urine Ketones 1+ H (Negative) Urine Blood Negative (Negative) Urine Nitrite Negative (Negative) Urine Bilirubin Negative (Negative) Urine Urobilinogen <2.0 (<2.0) mg/dL Ur Leukocyte Esterase Negative (Negative) Urine Opiates Screen Not Detected (NotDetected) Ur Oxycodone Screen Not Detected (NotDetected) Urine Methadone Screen Not Detected (NotDetected) Ur Propoxyphene Screen Not Detected (NotDetected) Ur Barbiturates Screen Not Detected (NotDetected) U Tricyclic Antidepress Detected H (NotDetected) Ur Phencyclidine Scrn Not Detected (NotDetected) Ur Amphetamines Screen Not Detected (NotDetected) U Methamphetamines Scrn Not Detected (NotDetected) U Benzodiazepines Scrn Detected H (NotDetected) Urine Cocaine Screen Not Detected (NotDetected) U Marijuana (THC) Screen Detected H (NotDetected) Coronavirus (PCR) Not Detected (Not Detectd) Disposition Clinical Impression: Acute anxiety, Depression, Schizoaffective disorder, Bipolar 2 disorder, major depressive episode, Major depressive disorder, recurrent severe without psychotic features Disposition: TRANSFER TO PSYCH HOSP/UNIT Condition: Fair Is patient prescribed a controlled substance at d/c from ED?: No
[2022-11-05 14:40] LABS: Amphetamine Screen,Urine Not Detected (NotDetected); Barbiturate Screen,Urine Not Detected (NotDetected); Benzodiazepines Screen,Urine Detected (NotDetected); Cocaine Screen,Urine Not Detected (NotDetected); Methadone Screen, Urine Not Detected (NotDetected); Opiate Screen,Urine Not Detected (NotDetected); Oxycodone Screen, Urine Not Detected (NotDetected); Phencyclidine Screen,Urine Not Detected (NotDetected); Tricyclic Antidepressant,Urine Detected (NotDetected); Urn Cannabinoid Scrn Detected (NotDetected)
[2022-11-05] MEDS ORDERED: MAGNESIUM HYDROXIDE 2,400 MG/30 ML CUP PO PRN (16:41)
[2022-11-05] MEDS ORDERED: ACETAMINOPHEN TAB 325 MG TAB PO PRN (16:41)
[2022-11-05] MEDS ORDERED: hydrOXYzine HCL 50 MG/ML 1 ML VIAL IM PRN (16:41)
[2022-11-05] MEDS ORDERED: MAG HYDROX/AL HYDROX/SIMETH 30 ML CUP PO PRN (16:41)
[2022-11-05 17:10] LABS: Appearance,Urine Clear (Clear); Bilirubin,Urine Negative (Negative); Blood,Urine Negative (Negative); Color,Urine Yellow; Glucose,Urine (UA) Negative (Negative); Ketones,Urine 1+ (Negative); Leukocyte Esterase,Urine Negative (Negative); Nitrite,Urine Negative (Negative); Protein,Urine Trace (Negative); Specific Gravity,Urine 1.026 (1.001-1.035); Urobilinogen,Urine <2.0 mg/dL (<2.0)
[2022-11-05] MEDS: OLANZapine 5 MG TAB PO SCH ×2 (17:53→20:39)
[2022-11-05] MEDS: QUEtiapine 100 MG TAB PO SCH (20:39)
[2022-11-06 07:10] LABS: Basophils % (A) 1 %; Eosinophils # (A) 0.2 k/uL (0-0.7); Eosinophils % (A) 3 %; HCT 49.4 % (39.0-53.0); HGB 16.8 gm/dL (13.0-17.5); Lymphocytes # (A) 1.7 k/uL (1.0-4.8); Lymphocytes % (A) 26 %; MCHC 33.9 g/dL (31.0-37.0); MCV 88.5 fL (80.0-100.0); Mean Platelet Volume 8.7; Monocytes # (A) 0.5 k/uL (0-1.0); Monocytes % (A) 8 %; Neutrophils # (A) 4.1 k/uL (1.3-7.7); Neutrophils % (A) 61 %; Platelet Count 246 k/uL (150-450); RBC 5.58 m/uL (4.30-5.90); RDW 12.9 % (11.5-15.5); WBC 6.6 k/uL (3.8-10.6)
[2022-11-06 07:22] LABS: ALT 20 U/L (4-49); AST 24 U/L (17-59); African American GFR (CKD) >90 (>60 ml/min/1.73 sqM); Albumin 4.6 g/dL (3.5-5.0); Alkaline Phosphatase 71 U/L (38-126); Anion Gap 10 mmol/L; Blood Urea Nitrogen 11 mg/dL (9-20); Calcium 9.3 mg/dL (8.4-10.2); Carbon Dioxide 29 mmol/L (22-30); Chloride 102 mmol/L (98-107); Glucose 96 mg/dL (74-99); Non-African American GFR(CKD) >90 (>60 ml/min/1.73 sqM); Potassium 4.1 mmol/L (3.5-5.1); Sodium 141 mmol/L (137-145); Total Bilirubin 0.8 mg/dL (0.2-1.3); Total Protein 7.3 g/dL (6.3-8.2)
[2022-11-06] MEDS: OLANZapine 5 MG TAB PO SCH ×2 (08:56→12:28)
[2022-11-06] MEDS: NICOTINE 14MG/24HR PATCH TRANSDERM SCH (08:57)
[2022-11-06] MEDS ORDERED: ERGOCALCIFEROL 1,250 MCG (50,000 IU) CAPSULE PO SCH (09:00)
[2022-11-06] MEDS ORDERED: FLUoxetine HCL 10 MG CAP PO SCH (09:00)
[2022-11-06 11:35] LABS: Chol/HDL Ratio 6.87 Ratio; LDL Cholesterol,Calculated 208.1 mg/dL (0.0-131.0)
--- NOTE | 2022-11-06 14:38 | P.HP ---
Psychiatric H&P - . H&P Date: 11/06/22 History & Physical: Allergies Allergy/AdvReac Type Severity Reaction Status Date / Time No Known Allergies Allergy Verified 11/05/22 16:41 Vital Signs Temp 97.9 F 11/06/22 06:33 Pulse 60 11/06/22 06:33 Resp 16 11/06/22 06:33 BP 128/78 11/06/22 06:33 Pulse Ox 96 11/05/22 17:55 FiO2 Intake & Output 11/05/22 11/06/22 11/06/22 18:59 06:59 18:59 Weight 102 kg Laboratory Last Values WBC 6.6 k/uL (3.8-10.6) 11/06/22 06: RBC 5.58 m/uL (4.30-5.90) 11/06/22 06: Hgb 16.8 gm/dL (13.0-17.5) 11/06/22 06:23 Hct 49.4 % (39.0-53.0) 11/06/22 06:23 MCV 88.5 fL (80.0-100.0) 11/06/22 06:23 MCH 30.0 pg (25.0-35.0) 11/06/22 06: MCHC 33.9 g/dL (31.0-37.0) 11/06/22: RDW 12.9 % (11.5-15.5) 11/06/22 06: Plt Count 246 k/uL (150-450) 11/06/22 06: MPV 8.7 11/06/22 06: Neutrophils % 61 % 11/06/22 06:23 Lymphocytes % 26 % 11/06/22 06:23 Monocytes % 8 % 11/06/22 06:23 Eosinophils % 3 % 11/06/22 06: Basophils % 1 % 11/06/22 06: Neutrophils # 4.1 k/uL (1.3-7.7) 11/06/22 06:23 Lymphocytes # 1.7 k/uL (1.0-4.8) 11/06/22 06: Monocytes # 0.5 k/uL (0-1.0) 11/06/22 06:23 Eosinophils # 0.2 k/uL (0-0.7) 11/06/22 06:23 Basophils # 0.0 k/uL (0-0.2) 11/06/22 06:23 Sodium 141 mmol/L (137-145) 11/06/22 06:23 Potassium 4.1 mmol/L (3.5-5.1) 11/06/22 06: Chloride 102 mmol/L (98-107) 11/06/22 06: Carbon Dioxide 29 mmol/L (22-30) 11/06/22 06:23 Anion Gap 10 mmol/L 11/06/22 06:23 BUN 11 mg/dL (9-20) 11/06/22 06: Creatinine 0.83 mg/dL (0.66-1.25) 11/06/22 06:23 Est GFR (CKD-EPI)AfAm >90 (>60 ml/min/1.73 sqM) 11/06/22 06: Est GFR (CKD-EPI)NonAf >90 (>60 ml/min/1.73 sqM) 11/06/22: Glucose 96 mg/dL (74-99) 11/06/22 06:[address] Glu mg/dL 105 mg/dL 11/06/22 06: Hemoglobin A1c 5.3 % (<=6.0) 11/06/22 06: Calcium 9.3 mg/dL (8.4-10.2) 11/06/22 06: Total Bilirubin 0.8 mg/dL (0.2-1.3) 11/06/22 06: AST 24 U/L (17-59) 11/06/22 06: ALT 20 U/L (4-49) 11/06/22 06:23 Alkaline Phosphatase 71 U/L (38-126) 11/06/22 06:23 Total Protein 7.3 g/dL (6.3-8.2) 11/06/22 06: Albumin 4.6 g/dL (3.5-5.0) 11/06/22 06:23 Triglycerides 143.00 mg/dL (0.00-149.00) 11/06/22 06:23 Cholesterol 277.00 mg/dL (0.00-200.00) H 11/06/22 06:23 LDL Cholesterol, Calc 208.1 mg/dL (0.0-131.0) H 11/06/22 06: VLDL Cholesterol, Calc 28.60 mg/dL (5.00-40.00) 11/06/22 06: HDL Cholesterol 40.30 mg/dL (40.00-60.00) 11/06/22 06: Cholesterol/HDL Ratio 6.87 Ratio 11/06/22 06: TSH 0.948 mIU/L (0.465-4.680) 11/06/22 06: Urine Color Yellow 11/05/22 14:15 Urine Appearance Clear (Clear) 11/05/22 14:15 Urine pH 6.0 (5.0-8.0) 11/05/22 14:15 Ur Specific [place] 1.026 (1.001-1.035) 11/05/22 14:15 Urine Protein Trace (Negative) H 11/05/22 14:15 Urine Glucose (UA) Negative (Negative) 11/05/22 14:15 Urine Ketones 1+ (Negative) H 11/05/22 14:15 Urine Blood Negative (Negative) 11/05/22 14:15 Urine Nitrite Negative (Negative) 11/05/22 14:15 Urine Bilirubin Negative (Negative) 11/05/22 14:15 Urine Urobilinogen <2.0 mg/dL (<2.0) 11/05/22 14:15 Ur Leukocyte Esterase Negative (Negative) 11/05/22 14:15 Urine Opiates Screen Not Detected (NotDetected) 11/05/22 14:13 Ur Oxycodone Screen Not Detected (NotDetected) 11/05/22 14:13 Urine Methadone Screen Not Detected (NotDetected) 11/05/22 14:13 Ur Propoxyphene Screen Not Detected (NotDetected) 11/05/22 14:13 Ur Barbiturates Screen Not Detected (NotDetected) 11/05/22 14:13 U Tricyclic Antidepress Detected (NotDetected) H 11/05/22 14:13 Ur Phencyclidine Scrn Not Detected (NotDetected) 11/05/22 14:13 Ur Amphetamines Screen Not Detected (NotDetected) 11/05/22 14:13 U Methamphetamines Scrn Not Detected (NotDetected) 11/05/22 14:13 U Benzodiazepines Scrn Detected (NotDetected) H 11/05/22 14:13 Urine Cocaine Screen Not Detected (NotDetected) 11/05/22 14:13 U Marijuana (THC) Screen Detected (NotDetected) H 11/05/22 14:13 Coronavirus (PCR) Not Detected (Not Detectd) 11/05/22 15:44 IDENTIFYING DATA: Patient is a single, unemployed, 32-year-old male with a significant history of autism spectrum disorder who is currently a resident at [facility] who presents to the emergency department on his own volition complaining of suicidal ideation. HPI: Patient presented to the hospital yesterday and was admitted to the mental health unit. Patient apparently presented complaining of depression and suicidal thoughts and also racing thoughts. Patient was admitted voluntarily to the mental health unit. Patient claims that he has a long-standing history of depression which has increased lately. He states his bed "overstimulated every day" and claims that there was a career for this with and also people around him. He claims that he has been in the [facility] for quite some time since winter and also has not been able to find new housing for about 4 months now from [facility]. He claims that he is in [facility] for about 30 days for property damage charges. Claims that his urine drug screen was positive for TCAs, benzodiazepines and THC. Claims that his anxiety is THIS time. He was fairly resistant in trying other medications and wanted to stick to taking his Seroquel and Prozac. Claims that his sleep and appetite are fair at this time. He denies any auditory or visual hallucinations. In regards to bipolar symptoms, the patient denies any periods of excessive energy, grandiosity, racing thoughts, or pressured speech. The patient reports previous diagnoses of autism spectrum disorder, he is currently denying any suicidal or homicidal ideations intent or plan. PAST PSYCHIATRIC HISTORY: Patient has periods diagnoses of autism spectrum disorder, mood disorder, and cannabis use disorder. The patient has obviously been on several medications including Paxil, Trileptal, guanfacine, Neurontin, and Zyprexa and Prozac. The patient has had multiple psychiatric hospitalizations with the last time being in October 2021. He is currently open with [facility]. The patient reports a prior attempt at suicide. PMH: Past Medical History: No Reported History Additional Past Medical History / Comment(s): autism History of Any Multi-Drug Resistant Organisms: None Reported Past Surgical History: No Surgical Hx Reported Past Anesthesia/Blood Transfusion Reactions: No Reported Reaction Past Psychological History: Depression Smoking Status: Never smoker Past Alcohol Use History: Rare Past Drug Use History: Marijuana ALLERGIES: NO KNOWN DRUG ALLERGIES CHEMICAL DEPENDENCY HISTORY: The patient reports frequent and almost daily marijuana use. He reports rare alcohol use. He denies any tobacco or illicit drug use. FAMILY PSYCHIATRIC/SUBSTANCE USE HISTORY: Patient reports his mother was bipolar. SOCIAL HISTORY: Patient is currently a resident at the [facility]. He is single, never , and has no children. Is currently unemployed. MENTAL STATUS EXAM: General Appearance: Patient appears to be stated age is alert, directable, and attempts to cooperate. Patient appears to have fair hygiene and grooming. Behavior: Patient is seated without any agitated behavior. Psychomotor activity is normal. Eye contact is appropriate. Speech: Patient's speech is fluent and nonpressured. Mood/Affect: Patient reports their mood is depressed, affect is incongruent as he appears to be constricted Suicidality/Homicidality: The patient is endorsing suicidal ideation however no homicidal ideation. Perceptions: Patient denies any visual hallucinations and denies any auditory hallucinations Though content/process: There is no evidence of any delusional thought content and thought process is linear and goal-directed. Focus on his medications. Memory and concentration: AOX3, grossly intact for the purposes of this session. Can spell "WORLD" backwards Judgment and insight: poor, limited STRENGTHS/WEAKNESSES: Strength is that the patient is in relatively good health. Weakness is that the patient has autism spectrum disorder and poor coping skills. INTELLECT: average IMPRESSIONS: Bipolar disorder, depressive episode Autism spectrum disorder Intermittent explosive disorder Cannabis use disorder PLAN: -Patient is admitted under voluntary status to MHU for stabilization of psychiatric symptoms and safety. Patient signed adult voluntary form and medication consent and is placed in patient's chart. -Medications : Will start patient on Prozac 20 mg by mouth daily for depression/anxiety, Seroquel 100 mg by mouth at bedtime for mood stabilization/bipolar depression -Ativan and Haldol PRN for agitation/aggression -Patient was counselled on substance abuse and desired to cut back on use -Patient was informed of the risks, benefits and side effects of the medication and patient verbally consented to taking the medications. Patient signed med consent form and was placed in chart. -Internal Medicine consult to perform medical evaluation and physical. -SW on board for discharge planning. Encourage patient to participate in groups to work on coping skills. patient will be going back to [facility] upon discharge 11/06/22 14:08 11/06/22 14:35
[2022-11-06] MEDS: QUEtiapine 100 MG TAB PO SCH (19:49)
[2022-11-06] MEDS ORDERED: hydrOXYzine HCL 50 MG/ML 1 ML VIAL IM PRN (21:19)
[2022-11-06] MEDS ORDERED: hydrOXYzine pamoate 25 MG CAP PO PRN (21:19)
[2022-11-06] MEDS ORDERED: ZIPRASIDONE 20 MG VIAL IM PRN (21:22)
[2022-11-06] MEDS ORDERED: ZIPRASIDONE 20 MG CAP PO PRN (21:22)
[2022-11-07] MEDS: FLUoxetine HCL 20 MG CAP PO SCH (07:50)
[2022-11-07] MEDS: NICOTINE 14MG/24HR PATCH TRANSDERM SCH (07:51)
--- NOTE | 2022-11-07 10:13 | P.PN ---
Progress Note - Text Progress Note Date: 11/07/22 Interval History: Patient was seen sitting in on group today and was directable and agreeable to speak with writer editor in the office. [ Patient appeared to be mildly more pleasant today with writer editor. He claims that he has been sitting in on most groups and trying to participate on the milieu. States that last night he had difficulty with his anxiety however did state that the Vistaril did help him. He claims that he did not sleep well last night and was requesting to have his Seroquel increased. He continues to have a issue with complex medication regimen and states that "I only really want to be on Prozac and Seroquel". He claims that his appetite is fair at this time, denied any other overnight complaints]. At this time patient denies any suicidal or homical ideations, intent or plan. Patient denies any auditory, visual hallucinations and denies any paranoia or delusions. Patient denies any side effects from the medications and has been compliant with meds. Mental Status Exam: General Appearance: Patient appears to be stated age is alert, directable, and attempts to cooperate. Patient appears to have fair hygiene and grooming. Behavior: Patient is seated without any agitated behavior. Psychomotor activity is normal. Speech: Patient's speech is fluent and nonpressured. Mood/Affect: Patient reports their mood is improving moderately, affect is congruent as he appears to be constricted Suicidality/Homicidality: The patient is endorsing suicidal ideation however no homicidal ideation. Perceptions: Patient denies any visual hallucinations and denies any auditory hallucinations Though content/process: There is no evidence of any delusional thought content and thought process is linear and goal-directed. Focus on his medications. [place] Memory and concentration: AOX3, grossly intact for the purposes of this session Judgment and insight: Chronically limited, improving mildly IMPRESSIONS: Bipolar disorder, depressive episode Autism spectrum disorder Intermittent explosive disorder Cannabis use disorder PLAN: -Patient is admitted under voluntary status to MHU for stabilization of psychiatric symptoms and safety. Patient signed adult voluntary form and medication consent and is placed in patient's chart. -Medications : continue Prozac 40 mg by mouth daily for depression/anxiety, increase Seroquel 200 mg by mouth at bedtime for mood stabilization/bipolar depression -vistaril and geodon PRN for agitation/aggression -NRT - not needed as patient does not smoke -SW on board for discharge planning. Encourage patient to participate in groups to work on coping skills. patient will be going back to [facility] upon discharge, likely discharge in 1-2 days
--- NOTE | 2022-11-07 11:45 | P.HPMEDMHU ---
History of Present Illness H&P Date: 11/07/22 Patient is a 32-year-old male in the medical health unit here for bipolar disorder. [facility] physicians has been consulted for medical management. Denies any chronic medical problems. Smokes marijuana, but denies any alcohol use or nicotine use. Pertinent positives and negatives as discussed in HPI, a complete review of systems was performed and all other systems are negative. Patient seen and examined at bedside. Vital signs reviewed General: nontoxic, no distress, appears at stated age Derm: warm, dry Head: atraumatic, normocephalic, symmetric Eyes: EOMI, no lid lag, anicteric sclera, pupils equal round reactive to light ENT: Nose and ears atraumatic Neck: No thyromegaly, supple Mouth: no lip lesion, mucus membranes moist Cardiovascular: S1S2 reg, no murmur, no edema Lungs: clear to auscultation bilateral, no rhonchi, no rales, no wheeze, no accessory muscle use Abdominal: soft, nontender to palpation, no guarding, no appreciable organomegaly Ext: no gross muscle atrophy, muscle strength muscle strength 5 out of 5 in all 4 extremities, no contractures Neuro: CN II-XII grossly intact Psych: Alert, oriented, appropriate affect Assessment/Plan: Bipolar disorder Dyslipidemia -Management per psychiatry -Patient does not want to take anymore medications besides his psychiatric medications -Counseled regarding diet and lifestyle changes Thank you for allowing us to participate in the care of this pleasant patient. Do not hesitate to contact us with questions. Someone can be reached from the [facility] hospitalist group all hours of the day at [phone] or via [employer]. Past Medical History Past Medical History: No Reported History Additional Past Medical History / Comment(s): autism History of Any Multi-Drug Resistant Organisms: None Reported Past Surgical History: No Surgical Hx Reported Past Anesthesia/Blood Transfusion Reactions: No Reported Reaction Past Psychological History: Depression Smoking Status: Never smoker Past Alcohol Use History: Rare Past Drug Use History: Marijuana - Past Family History Mother Additional Family Medical History / Comment(s): Mother is alive at age 60 with history of bipolar, Crohn's disease Father Family Medical History: Myocardial Infarction (ME) Additional Family Medical History / Comment(s): Father is alive at age 55 with history of 2 myocardial infarctions. Sister(s) Additional Family Medical History / Comment(s): He has one sister with no major medical problems. Medications and Allergies Home Medications Medication Instructions Recorded Confirmed Type FLUoxetine HCL [PROzac] 30 mg PO DAILY 30 Days cap 11/10/21 11/05/22 Rx QUEtiapine FUMARATE [SEROquel XR] 300 mg PO HS 11/05/22 11/05/22 History QUEtiapine [SEROquel] 100 mg PO HS 11/05/22 11/05/22 History Vitamin D3 50,000iu 1,250 mcg PO Q7D 11/05/22 11/05/22 History Allergies Allergy/AdvReac Type Severity Reaction Status Date / Time No Known Allergies Allergy Verified 11/05/22 16:41 Physical Exam Vitals: Vital Signs Temp Pulse Resp BP Pulse Ox 11/07/22 06:00 98.6 F 63 17 130/70 94 L Cranial Nerve Examination - Cranial Nerves Cranial Nerve II- Optic: Intact Cranial Nerve III- Oculomotor: Intact Cranial Nerve IV- Trochlear: Intact Cranial Nerve V- Trigeminal: Intact Cranial Nerve - Abducens: Intact Cranial Nerve VII- Facial: Intact Cranial Nerve VIII- Auditory: Intact Cranial Nerve IX- Glossopharyngeal: Intact Cranial Nerve X- Vagus: Intact Cranial Nerve XI- Accessory: Intact Cranial Nerve XII- Hypoglossal: Intact Results CBC & Chem 7: 11/06/22 06:23 11/06/22 06:23 Thrombosis Risk Factor Assmnt - Choose All That Apply Any of the Below Risk Factors Present?: No Other Risk Factors: No Thrombosis Risk Factor Assessment Level: Very Low Risk
[2022-11-07] MEDS ORDERED: QUEtiapine 100 MG TAB PO SCH (21:00)
[2022-11-08] MEDS: FLUoxetine HCL 20 MG CAP PO SCH (08:05)
[2022-11-08] MEDS: NICOTINE 14MG/24HR PATCH TRANSDERM SCH (08:30)
--- NOTE | 2022-11-08 11:10 | P.PN ---
Progress Note - Text Progress Note Date: 11/08/22 Interval History: Patient was seen sitting in on group today and was directable and agreeable to speak with advertising copywriter in the office. [Patient appeared to be mildly more pleasant today with advertising copywriter, and denies any overnight complaints. He states that he was feeling mildly tired during the day. He continues to focus on only being on Prozac and Seroquel. He states that he was used to being on 400 mg of Seroquel at nighttime. Claimed that he wanted increased once again. We spoke about the side effects and potential risks of Seroquel. He states that "I'm still depressed about my living situation" and proceeded to state that [facility] has not told him where he will be living. He has been going to groups, eating fairly. At this time patient denies any suicidal or homical ideations, intent or plan. Patient denies any auditory, visual hallucinations and denies any paranoia or delusions. Patient denies any side effects from the medications and has been compliant with meds. Mental Status Exam: General Appearance: Patient appears to be stated age is alert, directable, and attempts to cooperate. Patient appears to have fair hygiene and grooming. Behavior: Patient is seated without any agitated behavior. Psychomotor activity is normal. Speech: Patient's speech is fluent and nonpressured. Mood/Affect: Patient reports their mood is improving mildly, affect is congruent Suicidality/Homicidality: The patient is endorsing suicidal ideation however no homicidal ideation. Perceptions: Patient denies any visual hallucinations and denies any auditory hallucinations Though content/process: There is no evidence of any delusional thought content and thought process is linear and goal-directed. Focus on his medications and also discharge planning. [place] Memory and concentration: AOX3, grossly intact for the purposes of this session Judgment and insight: Chronically limited, improving mildly IMPRESSIONS: Bipolar disorder, depressive episode Autism spectrum disorder Intermittent explosive disorder Cannabis use disorder PLAN: -Patient is admitted under voluntary status to MHU for stabilization of psychiatric symptoms and safety. Patient signed adult voluntary form and medication consent and is placed in patient's chart. -Medications : continue Prozac 40 mg by mouth daily for depression/anxiety, increase Seroquel 300 mg by mouth at bedtime for mood stabilization/bipolar depression -vistaril and geodon PRN for agitation/aggression -NRT - not needed as patient does not smoke -SW on board for discharge planning. Encourage patient to participate in groups to work on coping skills. patient will be going back to [facility] upon discharge, likely discharge in 1-2 days. [facility] has informed advertising copywriter that pts new apartment is confirmed however waiting on gaurdian of other roommate to approve it. Will communicate this to patient.
[2022-11-08] MEDS: QUEtiapine 100 MG TAB PO SCH (21:02)
[2022-11-09] MEDS: FLUoxetine HCL 20 MG CAP PO SCH (08:22)
[2022-11-09] MEDS: NICOTINE 14MG/24HR PATCH TRANSDERM SCH (08:29)
--- NOTE | 2022-11-09 10:10 | P.PN ---
Progress Note - Text Progress Note Date: 11/09/22 Interval History: Patient was seen sitting in on group today and was directable and agreeable to speak with writer editor in the office. Patient appeared to be mildly more pleasant today. He claims that he is feeling more optimistic today. States that he was feeling a bit tired this morning however did sleep a bit better with the increase in Seroquel. Continues to state that he is going to groups and trying to participate as much as he can. He has been getting along with other patients on the unit. He spoke more about his living circumstances and also his financial situation as well. Senior Safety Management Consultant spoke with patient about the news from [facility] the patient does have a confirmed apartment however still waiting on approval from his roommate. He continues to focus on only being on Prozac and Seroquel. At this time patient denies any suicidal or homical ideations, intent or plan. Patient denies any auditory, visual hallucinations and denies any paranoia or delusions. Patient denies any side effects from the medications and has been compliant with meds. Mental Status Exam: General Appearance: Patient appears to be stated age is alert, directable, and attempts to cooperate. Patient appears to have fair hygiene and grooming. Behavior: Patient is seated without any agitated behavior. Psychomotor activity is normal. Speech: Patient's speech is fluent and nonpressured. Mood/Affect: Patient reports their mood is improving mildly, affect is congruent, improving Suicidality/Homicidality: The patient is endorsing suicidal ideation however no homicidal ideation. Perceptions: Patient denies any visual hallucinations and denies any auditory hallucinations Though content/process: There is no evidence of any delusional thought content and thought process is linear and goal-directed. Focus on discharge planning. [place] Memory and concentration: AOX3, grossly intact for the purposes of this session Judgment and insight: Chronically limited, improving mildly IMPRESSIONS: Bipolar disorder, depressive episode Autism spectrum disorder Intermittent explosive disorder Cannabis use disorder PLAN: -Patient is admitted under voluntary status to MHU for stabilization of psychiatric symptoms and safety. Patient signed adult voluntary form and medication consent and is placed in patient's chart. -Medications : continue Prozac 40 mg by mouth daily for depression/anxiety, Seroquel 300 mg by mouth at bedtime for mood stabilization/bipolar depression -vistaril and geodon PRN for agitation/aggression -NRT - not needed as patient does not smoke -SW on board for discharge planning. Encourage patient to participate in groups to work on coping skills. patient will be going back to [facility] upon discharge. [facility] has informed writer editor that pts new apartment is confirmed however waiting on gaurdian of other roommate to approve it, writer editor informed patient of this news and [facility] liason will speak with patient about this today. likely discharge tomorrow.
[2022-11-09] MEDS: QUEtiapine 100 MG TAB PO SCH (20:10)
[2022-11-10 07:04] VITALS: BP 131/82; PULSE 73; RESP 17; TEMP 98
[2022-11-10] MEDS: NICOTINE 14MG/24HR PATCH TRANSDERM SCH (08:42)
[2022-11-10] MEDS: FLUoxetine HCL 20 MG CAP PO SCH (08:42)
--- NOTE | 2022-11-10 10:23 | P.DS ---
Providers Date of admission: 11/05/22 16:37 Expected date of discharge: 11/10/22 Attending physician: Shen Yan MD Consults: 11/05/22 16:41 Consult Physician Routine Consulting Provider: Elvia Physician Consult Reason/Comments: medical management Do you want consulting provider notified?: Yes Primary care physician: Stated None - Discharge Diagnosis(es) (1) Bipolar disorder current episode depressed Current Visit: Yes Status: Acute Priority: High (2) Autism spectrum disorder Current Visit: Yes Status: Acute Priority: High (3) Intermittent explosive disorder Current Visit: Yes Status: Acute Priority: Medium (4) Cannabis use disorder Current Visit: Yes Status: Acute Priority: Medium Hospital Course: Admission HPI: Admission note was completed by contract writer " Patient is a single, unemployed, 32-year-old male with a significant history of autism spectrum disorder who is currently a resident at [facility] who presents to the emergency department on his own volition complaining of suicidal ideation. Patient presented to the hospital yesterday and was admitted to the mental health unit. Patient apparently presented complaining of depression and suicid al thoughts and also racing thoughts. Patient was admitted voluntarily to the mental health unit. Patient claims that he has a long-standing history of depression which has increased lately. He states his bed "overstimulated every day" and claims that there was a career for this with and also people around him. He claims that he has been in the [facility] for quite some time since winter and also has not been able to find new housing for about 4 months now from [facility]. He claims that he is in group home for about 30 days for property damage charges. Claims that his urine drug screen was positive for TCAs, benzodiazepines and THC. Claims that his anxiety is THIS time. He was fairly resistant in trying other medications and wanted to stick to taking his Seroquel and Prozac. Claims that his sleep and appetite are fair at this time. He denies any auditory or visual hallucinations. In regards to bipolar symptoms, the patient denies any periods of excessive energy, grandiosity, racing tho ughts, or pressured speech. The patient reports previous diagnoses of autism spectrum disorder, he is currently denying any suicidal or homicidal ideations intent or plan." Hospital course: Upon admission to the unit patient was directable and agreeable to commence treatment and signed adult voluntary form . Patient got along well with other patients on the unit and followed unit protocol. Patient was compliant with the medications and denied any side effects throughout hospital course. Patient was started on Seroquel and increased to a dose of 300 mg daily at bedtime for mood stabilization/insomnia, Prozac was restarted and increased the dose of 40 mg daily for mood/anxiety. Patient was also started on Vistaril when necessary for anxiety. Patient spoke of his stressors and engaged in therapy both group and individual. Patient was also seen by medical team for history and physical exam. Throughout the course of the hospitalization patient gradually improved with regards to mood, anxiety, sleep and returned back to their baseline level of functioning. On the day of discharge patient denied any suicidal or homicidal ideations intent or plan denied any auditory or visual hallucinations. Patient endorsed wanting to live for obtaining housing and also his health. The patient denied any access to guns or weapons. Patient denied any paranoia and did not endorse any delusions. Patient does have a significant history of substance abuse and was counseled on abstaining from all substances including alcohol and marijuana. Patient elected to do outpatient substance use treatment program through [facility]. Patient was also counseled on the medications and need for regular compliance and was encouraged to follow-up with their outpatient appointment for mental health and also for primary care. Patient will be discharged today back to [facility] with [facility] follow-up, neonatal social worker to assist with discharge today. Mental status exam: General Appearance: Patient appears to be mildly overweight, shaved head, stated age is alert, pleasant, and cooperative. Patient is in no acute distress and has improved hygiene and grooming Behavior: Patient is calmly seated without any agitated behavior. Speech: Patient's speech is fluent and nonpressured. Mood/Affect: Patient reports their mood is "good", affect is congruent Suicidality/Homicidality: Patient denies having any suicidal or homicidal ideation intent or plan. Perceptions: Patient denies any auditory or visual hallucinations. Though content/process: There is no evidence of any delusional thought content and thought process is linear and goal-directed. concrete Memory and concentration: AOX3, grossly intact for the purposes of this session. Can spell "WORLD" backwards correctly. Judgment and insight: Chronically limited, improved with guarded prognosis Impression: Bipolar disorder, current episode depressed Autism spectrum disorder Intermittent explosive disorder Cannabis use disorder Plan: -Continue with discharge today as patient has improved and stabilized psychiatrically and is not currently an imminent threat to himself and/or others. Patient will remain at chronically elevated risk for harm to self and/or others due to his impulsivity. -Continue medications: Seroquel 300 mg daily at bedtime for mood stabilization/insomnia, Prozac 40 mg daily for mood/anxiety. Vistaril 50 mg daily when necessary for anxiety. -Patient was counseled on the need for medication compliance and appropriate follow-up at mental health and also primary care for medical issues. Patient verbalized understanding and agreed. -Social work to help arrange for patient's disposition today back to [facility]. Social work also to arrange for patients follow up appointments with [facility] for psychiatric care along with follow up with primary care provider. -Patient counseled on abstaining from recreational drugs and marijuana and alcohol. Was informed/educated on the adverse effects on their physical and mental health. Patient verbally agreed and understood. -Patient was instructed to return to the hospital or seek immediate medical care if their psychiatric or medical symptoms do worsen or reoccur. Allergies Allergy/AdvReac Type Severity Reaction Status Date / Time No Known Allergies Allergy Verified 11/05/22 16:41 Laboratory Results WBC 6.6 k/uL (3.8-10.6) 11/06/22 06: RBC 5.58 m/uL (4.30-5.90) 11/06/22 06:23 Hgb 16.8 gm/dL (13.0-17.5) 11/06/22 06:23 Hct 49.4 % (39.0-53.0) 11/06/22 06:23 MCV 88.5 fL (80.0-100.0) 11/06/22 06:23 MCH 30.0 pg (25.0-35.0) 11/06/22 06: MCHC 33.9 g/dL (31.0-37.0) 11/06/22 06:23 RDW 12.9 % (11.5-15.5) 11/06/22 06:23 Plt Count 246 k/uL (150-450) 11/06/22 06:23 MPV 8.7 11/06/22 06:23 Neutrophils % 61 % 11/06/22 06:23 Lymphocytes % 26 % 11/06/22 06:23 Monocytes % 8 % 11/06/22 06:23 Eosinophils % 3 % 11/06/22 06:23 Basophils % 1 % 11/06/22 06:23 Neutrophils # 4.1 k/uL (1.3-7.7) 11/06/22 06:23 Lymphocytes # 1.7 k/uL (1.0-4.8) 11/06/22 06:23 Monocytes # 0.5 k/uL (0-1.0) 11/06/22 06:23 Eosinophils # 0.2 k/uL (0-0.7) 11/06/22 06: Basophils # 0.0 k/uL (0-0.2) 11/06/22 06: Sodium 141 mmol/L (137-145) 11/06/22 06:23 Potassium 4.1 mmol/L (3.5-5.1) 11/06/22 06: Chloride 102 mmol/L (98-107) 11/06/22 06: Carbon Dioxide 29 mmol/L (22-30) 11/06/22 06:23 Anion Gap 10 mmol/L 11/06/22 06:23 BUN 11 mg/dL (9-20) 11/06/22 06: Creatinine 0.83 mg/dL (0.66-1.25) 11/06/22 06:23 Est GFR (CKD-EPI)AfAm >90 (>60 ml/min/1.73 sqM) 11/06/22 06:23 Est GFR (CKD-EPI)NonAf >90 (>60 ml/min/1.73 sqM) 11/06/22 06:23 Glucose 96 mg/dL (74-99) 11/06/22 06:[address] Glu mg/dL 105 mg/dL 11/06/22 06: Hemoglobin A1c 5.3 % (<=6.0) 11/06/22 06: Calcium 9.3 mg/dL (8.4-10.2) 11/06/22 06:23 Total Bilirubin 0.8 mg/dL (0.2-1.3) 11/06/22 06: AST 24 U/L (17-59) 11/06/22 06: ALT 20 U/L (4-49) 11/06/22 06: Alkaline Phosphatase 71 U/L (38-126) 11/06/22 06:23 Total Protein 7.3 g/dL (6.3-8.2) 11/06/22 06: Albumin 4.6 g/dL (3.5-5.0) 11/06/22 06:23 Triglycerides 143.00 mg/dL (0.00-149.00) 11/06/22 06:23 Cholesterol 277.00 mg/dL (0.00-200.00) H 11/06/22 06:23 LDL Cholesterol, Calc 208.1 mg/dL (0.0-131.0) H 11/06/22: VLDL Cholesterol, Calc 28.60 mg/dL (5.00-40.00) 11/06/22: HDL Cholesterol 40.30 mg/dL (40.00-60.00) 11/06/22: Cholesterol/HDL Ratio 6.87 Ratio 11/06/22: TSH 0.948 mIU/L (0.465-4.680) 11/06/22 06: Urine Color Yellow 11/05/22 14:15 Urine Appearance Clear (Clear) 11/05/22 14:15 Urine pH 6.0 (5.0-8.0) 11/05/22 14:15 Ur Specific [place] 1.026 (1.001-1.035) 11/05/22 14:15 Urine Protein Trace (Negative) H 11/05/22 14:15 Urine Glucose (UA) Negative (Negative) 11/05/22 14:15 Urine Ketones 1+ (Negative) H 11/05/22 14:15 Urine Blood Negative (Negative) 11/05/22 14:15 Urine Nitrite Negative (Negative) 11/05/22 14:15 Urine Bilirubin Negative (Negative) 11/05/22 14:15 Urine Urobilinogen <2.0 mg/dL (<2.0) 11/05/22 14:15 Ur Leukocyte Esterase Negative (Negative) 11/05/22 14:15 Urine Opiates Screen Not Detected (NotDetected) 11/05/22 14:13 Ur Oxycodone Screen Not Detected (NotDetected) 11/05/22 14:13 Urine Methadone Screen Not Detected (NotDetected) 11/05/22 14:13 Ur Propoxyphene Screen Not Detected (NotDetected) 11/05/22 14:13 Ur Barbiturates Screen Not Detected (NotDetected) 11/05/22 14:13 U Tricyclic Antidepress Detected (NotDetected) H 11/05/22 14:13 Ur Phencyclidine Scrn Not Detected (NotDetected) 11/05/22 14:13 Ur Amphetamines Screen Not Detected (NotDetected) 11/05/22 14:13 U Methamphetamines Scrn Not Detected (NotDetected) 11/05/22 14:13 U Benzodiazepines Scrn Detected (NotDetected) H 11/05/22 14:13 Urine Cocaine Screen Not Detected (NotDetected) 11/05/22 14:13 U Marijuana (THC) Screen Detected (NotDetected) H 11/05/22 14:13 Coronavirus (PCR) Not Detected (Not Detectd) 11/05/22 15:44 Vital Signs Temp 98.0 F 11/10/22 07:03 Pulse 73 11/10/22 07:03 Resp 17 11/10/22 07:03 BP 131/82 11/10/22 07:03 Pulse Ox 98 11/10/22 07:03 FiO2 Patient Condition at Discharge: Stable Plan - Discharge Summary Discharge Rx Participant: No New Discharge Prescriptions: New Nicotine 14Mg/24Hr Patch [Habitrol] 1 patch TRANSDERM DAILY 14 Days #14 patch FLUoxetine HCL [PROzac] 40 mg PO DAILY 30 Days #30 cap QUEtiapine [SEROquel] 300 mg PO HS 30 Days #90 tab hydrOXYzine pamoate [Vistaril] 50 mg PO DAILY PRN 14 Days #28 cap PRN Reason: Agitation Or Acute Anxiety Continue Vitamin D3 50,000iu 1,250 mcg PO Q7D Discontinued FLUoxetine HCL [PROzac] 30 mg PO DAILY 30 Days cap QUEtiapine [SEROquel] 100 mg PO HS QUEtiapine FUMARATE [SEROquel XR] 300 mg PO HS Discharge Medication List Vitamin D3 50,000iu 1,250 mcg PO Q7D 11/05/22 [History] FLUoxetine HCL [PROzac] 40 mg PO DAILY 30 Days #30 cap 11/10/22 [Rx] Nicotine 14Mg/24Hr Patch [Habitrol] 1 patch TRANSDERM DAILY 14 Days #14 patch 11/10/22 [Rx] QUEtiapine [SEROquel] 300 mg PO HS 30 Days #90 tab 11/10/22 [Rx] hydrOXYzine pamoate [Vistaril] 50 mg PO DAILY PRN 14 Days #28 cap 11/10/22 [Rx] Follow up Appointment(s)/Referral(s): [facility] [Outside] - 11/13/22 3:30 pm (11/13/2022 3:30PM - 4:30PM with ASHELY COVINGTON 11/14/2022 12:30PM - 1:00PM with MECHE MEJIA) None,Stated [Primary Care Provider] - 1-2 days Activity/Diet/Wound Care/Special Instructions: Avoid the use of street drugs and alcohol. Take all medications as prescribed. When you are in need of refills on your medications, please contact your medical provider and/or outpatient psychiatrist to have this done. Please go to scheduled outpatient appointments for aftercare treatment. If symptoms return or become worse, call the crisis line at and/or go to the nearest emergency room for evaluation. Discharge Disposition: OTHER INSTITUTION NOT DEFINED
== END 2022-11-10 13:11 | disposition other institution (70) | DRG 753 ==
LOC: EC 12:05 → 3MHU 16:37
PROVIDERS: ADMIT Psychiatry & Neurology Psychiatry; ATTEND Psychiatry & Neurology Psychiatry
DX: F31.30 Bipolar disorder, current episode depressed, mild or moderate severity, unspecified (principal); R45.851 Suicidal ideations; F84.0 Autistic disorder; F63.81 Intermittent explosive disorder; E78.5 Hyperlipidemia, unspecified; Z20.822 Contact with and (suspected) exposure to COVID-19; Z79.899 Other long term (current) drug therapy; Z87.891 Personal history of nicotine dependence; Z28.310 Unvaccinated for COVID-19; Z81.8 Family history of other mental and behavioral disorders; Z56.0 Unemployment, unspecified; Z91.51 Personal history of suicidal behavior
CPT/HCPCS: 80053; 80061; 80306; 81003; 82075; 83036; 84443; 85025; 87635; 99285

== ENCOUNTER 2024-07-15 10:13 | Inpatient (IN) | payer MEDICAID, MEDICARE, OTHER ==
--- NOTE | 2024-07-15 11:24 | ED ---
Psych HPI - General Chief Complaint: Psychiatric Symptoms Stated Complaint: mental health eval Time Seen by Provider: 07/15/24 10:16 Source: patient, RN notes reviewed Mode of arrival: ambulatory Limitations: no limitations - History of Present Illness Initial Comments: 34-year-old male presents emergency department with chief complaint of needing psychiatric evaluation. He states he does not feel stable at home. Patient states that he does not want to live this way anymore. He states he is autistic and has underlying psychiatric disorders denies being homicidal. Patient states that he normally hits his head off the wall to relieve his stress this has been going on for over a year. He denies any complaints headache dizziness blurred vision or any lacerations. Medications he did contact his PCP. - Related Data Home Medications Medication Instructions Recorded Confirmed Vitamin D3 50,000iu 1,250 mcg PO Q7D 11/05/22 11/05/22 Previous Rx's Medication Instructions Recorded FLUoxetine HCL [PROzac] 40 mg PO DAILY 30 Days #30 cap 11/10/22 Nicotine 14Mg/24Hr Patch [Habitrol] 1 patch TRANSDERM DAILY 14 Days 11/10/22 #14 patch QUEtiapine [SEROquel] 300 mg PO HS 30 Days #90 tab 11/10/22 hydrOXYzine pamoate [Vistaril] 50 mg PO DAILY PRN 14 Days #28 cap 11/10/22 Allergies Allergy/AdvReac Type Severity Reaction Status Date / Time No Known Allergies Allergy Verified 07/15/24 10:23 Review of Systems ROS Statement: Those systems with pertinent positive or pertinent negative responses have been documented in the HPI. ROS Other: All systems not noted in ROS Statement are negative. Past Medical History Past Medical History: No Reported History Additional Past Medical History / Comment(s): autism History of Any Multi-Drug Resistant Organisms: None Reported Past Surgical History: No Surgical Hx Reported Past Anesthesia/Blood Transfusion Reactions: No Reported Reaction Past Psychological History: Bipolar, Depression Smoking Status: Never smoker Past Alcohol Use History: Rare Past Drug Use History: Marijuana - Past Family History Mother Additional Family Medical History / Comment(s): Mother is alive at age 60 with history of bipolar, Crohn's disease Father Family Medical History: Myocardial Infarction ([place]) Additional Family Medical History / Comment(s): Father is alive at age 55 with history of 2 myocardial infarctions. Sister(s) Additional Family Medical History / Comment(s): He has one sister with no major medical problems. General Exam Limitations: no limitations General appearance: alert, in no apparent distress Head exam: Present: atraumatic, normocephalic, normal inspection Eye exam: Present: normal appearance, PERRL, EOMI. Absent: scleral icterus, conjunctival injection, periorbital swelling ENT exam: Present: normal exam, normal oropharynx, mucous membranes moist Neck exam: Present: normal inspection, full ROM. Absent: tenderness, meningismus, lymphadenopathy Respiratory exam: Present: normal lung sounds bilaterally. Absent: respiratory distress, wheezes, rales, rhonchi, stridor Cardiovascular Exam: Present: regular rate, normal rhythm, normal heart sounds. Absent: systolic murmur, diastolic murmur, rubs, gallop, clicks GI/Abdominal exam: Present: soft, normal bowel sounds. Absent: distended, tenderness, guarding, rebound, rigid Neurological exam: Present: alert, oriented X3, CN II-XII intact, reflexes normal. Absent: motor sensory deficit Skin exam: Present: warm, dry, intact, normal color. Absent: rash Course Vital Signs 07/15/24 10:18 Temperature 97.8 F Pulse Rate 101 H Respiratory 18 Rate Blood Pressure 113/78 O2 Sat by Pulse 95 Oximetry Medical Decision Making - Medical Decision Making Was pt. sent in by a medical professional or institution ([facility], CARDIOPULMONARY PHYSICAL THERAPIST, urgent care, hospital, or usp...) When possible be specific @ -No Did you speak to anyone other than the patient for history (EMS, parent, family, police, friend...)? What history was obtained from this source @ -No Did you review nursing and triage notes (agree or disagree)? Why? @ -I reviewed and agree with nursing and triage notes Were old charts reviewed (outside hosp., previous admission, EMS record, old EKG, old radiological studies, urgent care reports/EKG's, usp records)? Report findings @ -No old charts were reviewed Differential Diagnosis (chest pain, altered mental status, abdominal pain women, abdominal pain men, vaginal bleeding, weakness, fever, dyspnea, syncope, headache, dizziness, GI bleed, back pain, seizure, CVA, palpatations, mental health, musculoskeletal)? @ -Differential Mental Health Depression, anxiety, bipolar, psychosis, schizophrenia, borderline personality, situational depression, adjustment disorder, behavioral disorder, brain tumor, malingering, substance abuse, encephalopathy, medication reaction, dementia, hypothyroidism, degenerative neurologic disorder, lupus.... This is not meant to be all-inclusive list EKG interpreted by me (3pts min.). @ -None. X-rays interpreted by me (1pt min.). @ -None done CT interpreted by me (1pt min.). @ -None done U/S interpreted by me (1pt. min.). @ -None done What testing was considered but not performed or refused? (CT, X-rays, U/S, labs)? Why? @ -None What meds were considered but not given or refused? Why? @ -None Did you discuss the management of the patient with other professionals (professionals i.e. , PA, CARDIOPULMONARY PHYSICAL THERAPIST, lab, RT, psych nurse, neonatal social worker, referral clerk, teacher, admissions officer, major case detective)? Give summary @ -EPS evaluated patient and recommended inpatient treatment Was smoking cessation discussed for >3mins.? @ -No Was critical care preformed (if so, how long)? @ -No Were there social determinants of health that impacted care today? How? (Homelessness, low income, unemployed, alcoholism, drug addiction, transportation, low edu. Level, literacy, decrease access to med. care, care home, rehab)? @ -No Was there de-escalation of care discussed even if they declined (Discuss DNR or withdrawal of care, Hospice)? DNR status @ -No What co-morbidities impacted this encounter? (DM, HTN, Smoking, COPD, CAD, Cancer, CVA, ARF, Chemo, Hep., AIDS, mental health diagnosis, sleep apnea, morbid obesity)? @ -None Was patient admitted / discharged? Hospital course, mention meds given and route, prescriptions, significant lab abnormalities, going to OR and other pertinent info. @ -Admit to 3 W. Undiagnosed new problem with uncertain prognosis? @ -No Drug Therapy requiring intensive monitoring for toxicity (Heparin, Nitro, Insulin, Cardizem)? @ -No Were any procedures done? @ -No Diagnosis/symptom? @ -[Depression Acute, or Chronic, or Acute on Chronic? @ -Acute Uncomplicated (without systemic symptoms) or Complicated (systemic symptoms)? @ -Uncomplicated Side effects of treatment? @ -No Exacerbation, Progression, or Severe Exacerbation? @ -No Poses a threat to life or bodily function? How? (Chest pain, [place], [place], pneumonia, PE, COPD, DKA, ARF, appy, cholecystitis, CVA, Diverticulitis, Homicidal, Suicidal, threat to staff... and all critical care pts) @ -No - Lab Data Lab Results 07/15/24 07/15/24 Range/Units 11:19 11:28 Urine Opiates Screen Not Detected (NotDetected) Ur Oxycodone Screen Not Detected (NotDetected) Urine Methadone Screen Not Detected (NotDetected) Ur Barbiturates Screen Not Detected (NotDetected) U Tricyclic Antidepress Detected H (NotDetected) Ur Phencyclidine Scrn Not Detected (NotDetected) Ur Amphetamines Screen Not Detected (NotDetected) U Methamphetamines Scrn Not Detected (NotDetected) U Benzodiazepines Scrn Detected H (NotDetected) Urine Cocaine Screen Not Detected (NotDetected) U Marijuana (THC) Screen Detected H (NotDetected) SARS-CoV-2 (PCR) Not Detected (Not Detectd) Disposition Clinical Impression: Depression Disposition: TRANSFER TO PSYCH HOSP/UNIT Referrals: [facility] [Primary Care Provider] - 1-2 days Time of Disposition: 13:27
[2024-07-15 12:19] LABS: Amphetamine Screen,Urine Not Detected (NotDetected); Barbiturate Screen,Urine Not Detected (NotDetected); Benzodiazepines Screen,Urine Detected (NotDetected); Cocaine Screen,Urine Not Detected (NotDetected); Methadone Screen, Urine Not Detected (NotDetected); Opiate Screen,Urine Not Detected (NotDetected); Oxycodone Screen, Urine Not Detected (NotDetected); Phencyclidine Screen,Urine Not Detected (NotDetected); Tricyclic Antidepressant,Urine Detected (NotDetected); Urn Cannabinoid Scrn Detected (NotDetected)
[2024-07-15] MEDS ORDERED: IBUPROFEN 600 MG TAB PO PRN (20:03)
[2024-07-15] MEDS ORDERED: MAGNESIUM HYDROXIDE 2,400 MG/30 ML CUP PO PRN (20:03)
[2024-07-15] MEDS ORDERED: ACETAMINOPHEN TAB 325 MG TAB PO PRN (20:03)
[2024-07-15] MEDS ORDERED: MAG HYDROX/AL HYDROX/SIMETH 355 ML BOTTLE PO PRN (20:03)
[2024-07-15] MEDS ORDERED: haloperidoL 5 MG TAB PO PRN (20:04)
[2024-07-15] MEDS ORDERED: HALOPERIDOL LACTATE 5 MG/ML 1 ML VIAL IM PRN (20:04)
[2024-07-15] MEDS ORDERED: LORazepam 2 MG/ML INJ IM PRN (20:04)
[2024-07-15] MEDS: QUEtiapine 100 MG TAB PO SCH (21:14)
[2024-07-15] MEDS: hydrOXYzine pamoate 25 MG CAP PO PRN (22:57)
[2024-07-15] MEDS: LORazepam 1 MG TAB PO PRN (22:58)
[2024-07-16 03:50] LABS: Amorphous Sediment,Urine Moderate /hpf; Appearance,Urine Turbid (Clear); Bilirubin,Urine Negative (Negative); Blood,Urine Negative (Negative); Color,Urine Yellow; Glucose,Urine (UA) Negative (Negative); Ketones,Urine Negative (Negative); Leukocyte Esterase,Urine Negative (Negative); Mucus,Urine Few /hpf; Nitrite,Urine Negative (Negative); PH, Urine 5.5 (5.0-8.0); Protein,Urine 1+ (Negative); Specific Gravity,Urine 1.033 (1.001-1.035); Urobilinogen,Urine <2.0 mg/dL (<2.0)
[2024-07-16 08:24] LABS: ALT 60 U/L (4-49); AST 51 U/L (17-59); African American GFR (CKD) >90 (>60 ml/min/1.73 sqM); Albumin 4.6 g/dL (3.5-5.0); Alkaline Phosphatase 84 U/L (38-126); Anion Gap 8 mmol/L; Bilirubin, Delta 0.1 mg/dL (0.0-0.2); Bilirubin,Unconjugated 0.7 mg/dL (0.0-1.1); Blood Urea Nitrogen 16 mg/dL (9-20); Calcium 9.4 mg/dL (8.4-10.2); Carbon Dioxide 28 mmol/L (22-30); Chloride 102 mmol/L (98-107); Glucose 98 mg/dL (74-99); Non-African American GFR(CKD) >90 (>60 ml/min/1.73 sqM); Potassium 4.4 mmol/L (3.5-5.1); Sodium 138 mmol/L (137-145); Total Bilirubin 0.8 mg/dL (0.2-1.3); Total Protein 7.3 g/dL (6.3-8.2)
[2024-07-16] MEDS: FLUoxetine HCL 20 MG CAP PO SCH (08:34)
[2024-07-16] MEDS: NICOTINE 14MG/24HR PATCH TRANSDERM SCH (08:35)
[2024-07-16 08:37] LABS: Basophils # (A) 0.1 k/uL (0-0.2); Basophils % (A) 1 %; Eosinophils # (A) 0.1 k/uL (0-0.7); Eosinophils % (A) 2 %; HCT 49.1 % (39.0-53.0); HGB 16.3 gm/dL (13.0-17.5); Lymphocytes # (A) 1.5 k/uL (1.0-4.8); Lymphocytes % (A) 22 %; MCH 29.7 pg (25.0-35.0); MCHC 33.2 g/dL (31.0-37.0); MCV 89.5 fL (80.0-100.0); Mean Platelet Volume 9.3; Monocytes # (A) 0.5 k/uL (0-1.0); Monocytes % (A) 8 %; Neutrophils # (A) 4.4 k/uL (1.3-7.7); Neutrophils % (A) 66 %; Platelet Count 225 k/uL (150-450); RBC 5.48 m/uL (4.30-5.90); RDW 12.8 % (11.5-15.5); WBC 6.7 k/uL (3.8-10.6)
--- NOTE | 2024-07-16 12:49 | P.HP ---
Psychiatric H&P - . H&P Date: 07/16/24 History & Physical: Allergies Allergy/AdvReac Type Severity Reaction Status Date / Time No Known Allergies Allergy Verified 07/15/24 14:21 Vital Signs Temp 98.4 F 07/16/24 07:02 Pulse 90 07/15/24 21:15 Resp 20 07/15/24 21:15 BP 133/79 07/16/24 07:02 Pulse Ox 99 07/16/24 07:02 FiO2 Intake & Output 07/15/24 07/16/24 07/16/24 18:59 06:59 18:59 Weight 99.79 kg 96.298 kg Laboratory Last Values WBC 6.7 k/uL (3.8-10.6) 07/16/24 07:41 RBC 5.48 m/uL (4.30-5.90) 07/16/24 07:41 Hgb 16.3 gm/dL (13.0-17.5) 07/16/24 07:41 Hct 49.1 % (39.0-53.0) 07/16/24 07:41 MCV 89.5 fL (80.0-100.0) 07/16/24 07:41 MCH 29.7 pg (25.0-35.0) 07/16/24 07:41 MCHC 33.2 g/dL (31.0-37.0) 07/16/24 07:41 RDW 12.8 % (11.5-15.5) 07/16/24 07:41 Plt Count 225 k/uL (150-450) 07/16/24 07:41 MPV 9.3 07/16/24 07:41 Neutrophils % 66 % 07/16/24 07:41 Lymphocytes % 22 % 07/16/24 07:41 Monocytes % 8 % 07/16/24 07:41 Eosinophils % 2 % 07/16/24 07:41 Basophils % 1 % 07/16/24 07:41 Neutrophils # 4.4 k/uL (1.3-7.7) 07/16/24 07:41 Lymphocytes # 1.5 k/uL (1.0-4.8) 07/16/24 07:41 Monocytes # 0.5 k/uL (0-1.0) 07/16/24 07:41 Eosinophils # 0.1 k/uL (0-0.7) 07/16/24 07:41 Basophils # 0.1 k/uL (0-0.2) 07/16/24 07:41 Sodium 138 mmol/L (137-145) 07/16/24 07:41 Potassium 4.4 mmol/L (3.5-5.1) 07/16/24 07:41 Chloride 102 mmol/L (98-107) 07/16/24 07:41 Carbon Dioxide 28 mmol/L (22-30) 07/16/24 07:41 Anion Gap 8 mmol/L 07/16/24 07:41 BUN 16 mg/dL (9-20) 07/16/24 07:41 Creatinine 0.88 mg/dL (0.66-1.25) 07/16/24 07:41 Est GFR (CKD-EPI)AfAm >90 (>60 ml/min/1.73 sqM) 07/16/24 07:41 Est GFR (CKD-EPI)NonAf >90 (>60 ml/min/1.73 sqM) 07/16/24 07:41 Glucose 98 mg/dL (74-99) 07/16/24 07:41 Calcium 9.4 mg/dL (8.4-10.2) 07/16/24 07:41 Total Bilirubin 0.8 mg/dL (0.2-1.3) 07/16/24 07:41 Conjugated Bilirubin 0.0 mg/dL (0.0-0.3) 07/16/24 07:41 Unconjugated Bilirubin 0.7 mg/dL (0.0-1.1) 07/16/24 07:41 Delta Bilirubin 0.1 mg/dL (0.0-0.2) 07/16/24 07:41 AST 51 U/L (17-59) 07/16/24 07:41 ALT 60 U/L (4-49) H 07/16/24 07:41 Alkaline Phosphatase 84 U/L (38-126) 07/16/24 07:41 Total Protein 7.3 g/dL (6.3-8.2) 07/16/24 07:41 Albumin 4.6 g/dL (3.5-5.0) 07/16/24 07:41 TSH 2.040 mIU/L (0.465-4.680) 07/16/24 07:41 Urine Color Yellow 07/15/24 11:28 Urine Appearance Turbid (Clear) 07/15/24 11:28 Urine pH 5.5 (5.0-8.0) 07/15/24 11:28 Ur Specific [place] 1.033 (1.001-1.035) 07/15/24 11:28 Urine Protein 1+ (Negative) H 07/15/24 11:28 Urine Glucose (UA) Negative (Negative) 07/15/24 11:28 Urine Ketones Negative (Negative) 07/15/24 11:28 Urine Blood Negative (Negative) 07/15/24 11:28 Urine Nitrite Negative (Negative) 07/15/24 11:28 Urine Bilirubin Negative (Negative) 07/15/24 11:28 Urine Urobilinogen <2.0 mg/dL (<2.0) 07/15/24 11:28 Ur Leukocyte Esterase Negative (Negative) 07/15/24 11:28 Amorphous Sediment Moderate /hpf (None) H 07/15/24 11:28 Urine Mucus Few /hpf (None) H 07/15/24 11:28 Urine Opiates Screen Not Detected (NotDetected) 07/15/24 11:28 Ur Oxycodone Screen Not Detected (NotDetected) 07/15/24 11:28 Urine Methadone Screen Not Detected (NotDetected) 07/15/24 11:28 Ur Barbiturates Screen Not Detected (NotDetected) 07/15/24 11:28 U Tricyclic Antidepress Detected (NotDetected) H 07/15/24 11:28 Ur Phencyclidine Scrn Not Detected (NotDetected) 07/15/24 11:28 Ur Amphetamines Screen Not Detected (NotDetected) 07/15/24 11:28 U Methamphetamines Scrn Not Detected (NotDetected) 07/15/24 11:28 U Benzodiazepines Scrn Detected (NotDetected) H 07/15/24 11:28 Urine Cocaine Screen Not Detected (NotDetected) 07/15/24 11:28 U Marijuana (THC) Screen Detected (NotDetected) H 07/15/24 11:28 SARS-CoV-2 (PCR) Not Detected (Not Detectd) 07/15/24 11:19 07/16/24 10:28 IDENTIFYING DATA: Patient is a single, unemployed, 32-year-old male with a significant history of autism spectrum disorder who is currently living in an apartment, [facility] HPI: Patient presented to the hospital yesterday and was admitted to the mental health unit. Patient was seen by [facility] licensed master social worker and according to note "Clinician met with Josh in ER 13 to juanal. Cl sitting in bed, awake, A/O x4 presenting via self due to increased anxiety/depression. Cl reports " I feel like there is brain damage from hitting my head." When asked to elaborate cl reports self harming via "smashing my head into the wall." Cl reports this was enough to cause property damage to their home. Cl reprots they are autistic and struggling with "sound sensitivity" increased irritability, mood swings, low frustration tolerance, racing thoughts, not feeling safe, and concerned about inadvertently hurting someone with their intense anger. Cl also reports struggling with focus, attention, isolation, not feeling present in their day, loss of interest, motivation. Cl was also observed talking out loud to themselves in the room. Cl potentially was responding via opinion of what they were watching on TV. Cl reports these symptoms were following and argument with their father a few days prior to admission. Cl reports feeling fearful and not able to be safe." Patient was seen today by card writer hand wandering the hallways. Patient was initially fairly directable and attempts to cooperate. The patient reports previous diagnoses of autism spectrum disorder and bipolar disorder. Claims that he has been feeling more "overwhelmed" and also overstimulated. States that he needs to be evaluated for a "head injury" and claims that he has been banging his head multiple times against the drywall in his apartment. He states that he has been having memory loss possible loss of consciousness. Claims that he feels more sensitive to his environment. Claims that he has been feeling more "explosive" and unpredictable. He is reporting depression and anxiety. When speaking about medications he was very hesitant about starting new medications. Denies any issues with sleep or appetite., he is currently denying any suicidal or homicidal ideations intent or plan. Nuys any auditory or visual hallucinations. Not reporting any paranoia. Patient's urine drug screen is positive for TCAs, benzodiazepines and THC. Does not use cigarettes. Claims that he smokes marijuana about 2 times a week, drinks alcohol occasionally. Patient was fairly focused on being evaluated for "head trauma" PAST PSYCHIATRIC HISTORY: Patient has periods diagnoses of autism spectrum disorder, bipolar disorder r, and cannabis use disorder and also intermittent explosive disorder. The patient has obviously been on several medications including Paxil, Trileptal, guanfacine, Neurontin, and Zyprexa and Prozac. Patient is currently on Seroquel, Prozac and Vistaril as needed. The patient has had multiple psychiatric hospitalizations with the last time being in October 2022. He is currently open with [facility]. The patient reports a prior attempt at suicide tried to cut his wrists 9 yrs ago. PMH: as per ER note ALLERGIES: NO KNOWN DRUG ALLERGIES CHEMICAL DEPENDENCY HISTORY: The patient reports frequent and almost daily marijuana use. He reports rare alcohol use. He denies any tobacco or illicit drug use. FAMILY PSYCHIATRIC/SUBSTANCE USE HISTORY: Patient reports his mother was bipolar. SOCIAL HISTORY: Patient is currently living alone in an apartment. He is single, never , and has no children. Is currently unemployed. prison 2 yrs ago, for malicious property destruction. MENTAL STATUS EXAM: General Appearance: Patient appears to be have short hair, several scabbing and redness around his head. Stated age is alert, directable, and attempts to cooperate. Patient appears to have fair hygiene and grooming. Behavior: Patient is seated without any agitated behavior. Begins to be upset with card writer hand. Speech: Patient's speech is fluent and nonpressured. Fairly concrete Mood/Affect: Patient reports their mood is depressed and anxious, affect is incongruent as he appears to be constricted Suicidality/Homicidality: The patient is endorsing suicidal ideation however no homicidal ideation. Perceptions: Patient denies any visual hallucinations and denies any auditory hallucinations Though content/process: There is no evidence of any delusional thought content and thought process is linear and goal-directed. Focus on his medications and being evaluated for head trauma. Memory and concentration: AOX3, grossly intact for the purposes of this session. Can spell "WORLD" backwards Judgment and insight: poor, limited/impulsive STRENGTHS/WEAKNESSES: Strength is that the patient is in relatively good health. Weakness is that the patient has an explosive temper, and poor coping skills. INTELLECT: average IMPRESSIONS: Bipolar disorder unpsecified Autism spectrum disorder Intermittent explosive disorder Cannabis use disorder PLAN: -Patient is admitted under voluntary status to MHU for stabilization of psychiatric symptoms and safety. Patient signed adult voluntary form and medication consent and is placed in patient's chart. -Medications : cymbalta 30 mg by mouth daily for depression/anxiety, invega 3 mg qhs for mood stabilization/aggression, clonidine 0.1 mg daily for aggression/impulsivity -Ativan and Haldol PRN for agitation/aggression -Patient was counselled on substance abuse and desired to cut back on use -Patient was informed of the risks, benefits and side effects of the medication and patient verbally consented to taking the medications. Patient signed med consent form and was placed in chart. written information about medications offered and will be given to patient by nurse -ordered CT scan of Brain for concern of repeated head trauma and possible LOC -Internal Medicine consult to perform medical evaluation and physical. -SW on board for discharge planning. Encourage patient to participate in groups to work on coping skills.
[2024-07-16] MEDS: DULoxetine HCL 30 MG CAPSULE.DR PO SCH (13:01)
[2024-07-16] MEDS: cloNIDine HCL 0.1 MG TAB PO SCH (13:01)
[2024-07-16 15:43] LABS: Chol/HDL Ratio 5.54 Ratio; LDL Cholesterol,Calculated 161.1 mg/dL (0.0-131.0)
--- NOTE | 2024-07-16 16:07 | CT ---
EXAMINATION TYPE: CT brain wo con DATE OF EXAM: 07/16/2024 COMPARISON: 12/28/2015 CLINICAL INDICATION: Male, 34 years old with history of repeated self induced head trauma; PHH, [place] self induced head trauma. CT DLP: 1133.3 mGycm Automated exposure control for dose reduction was used. Findings: The ventricles, basal cisterns and sulci over the convexities are within normal limits and there is n o mass effect or shift of midline structures. No abnormal density is seen throughout the brain parenchyma and there is no acute intra or extra-axia l hemorrhage. The posterior fossa including the brainstem, fourth ventricle and cerebellar pontine angles appear no rmal. Intraorbital contents appear normal and symmetric. There is marked mucosal thickening in the maxillary sinuses and ethmoid sinuses. There is an air-flui d level in the right maxillary sinus. The mastoid air cells are well aerated The calvarium is intact. IMPRESSION: 1. No acute bleed or mass effect. 2. Marked chronic inflammatory changes in the ethmoid and maxillary sinuses with probable superimpose d acute sinusitis in the right maxillary sinus. [facility], Workstation: AJ, 07/16/2024 4:05 PM
[2024-07-16] MEDS: PALIPERIDONE 3 MG TAB.ER.24 PO SCH (20:58)
--- NOTE | 2024-07-17 11:45 | P.PN ---
Progress Note - Text Progress Note Date: 07/17/24 Interval history: Patient was seen today for psychiatric follow up. Patient was noted to be in groups today, working on activities. He appears to be less irritable this morning, more goal oriented, less evasive. States that his irritability and mood swings have been improving. Claims that he does like the Invega at this time. Does claim that he does have ability a bit of anxiety at this time, depression has been improving. We spoke about transitioning onto long-acting injection and he is okay with this. We reviewed the risks and benefits of this. Claims that he is adamant about wanting to go back home tomorrow and does not want to stay the weekend. Denied any issues last night claims that he slept about 5 or 6 hours, has been eating well participating in groups, denying any suicidal homicidal ideations intent or plan denying any auditory or visual hallucinations. MENTAL STATUS EXAM: General Appearance: Patient appears to be have short hair, several scabbing and redness around his head. Stated age is alert, directable, and attempts to cooperate. Patient appears to have fair hygiene and grooming. Behavior: Patient is seated without any agitated behavior. More cooperative today Speech: Patient's speech is fluent and nonpressured. Fairly concrete, improving Mood/Affect: Patient reports their mood is "just a bit anxious", affect is congruent Suicidality/Homicidality: The patient is denies any suicidal ideation however no homicidal ideation. Perceptions: Patient denies any visual hallucinations and denies any auditory hallucinations Though content/process: There is no evidence of any delusional thought content and thought process is linear and goal-directed. Focus on his medications. And discharge tomorrow Memory and concentration: AOX3, grossly intact for the purposes of this session Judgment and insight: Chronically limited/impulsive, improving IMPRESSIONS: Bipolar disorder unpsecified Autism spectrum disorder Intermittent explosive disorder Cannabis use disorder PLAN: -Patient is admitted under voluntary status to MHU for stabilization of ps ychiatric symptoms and safety. Patient signed adult voluntary form and medication consent and is placed in patient's chart. -Medications : Increase cymbalta 60 mg by mouth daily for depression/anxiety, invega 3 mg qhs for mood stabilization/aggression, clonidine 0.1 mg daily for aggression/impulsivity. patient is agreeable to recieve LUNA bennett tomorrow prior to discharge if he is doing well and tolerating the medications. -Ativan and Haldol PRN for agitation/aggression -CT scan of Brain for concern of repeated head trauma and possible LOC - no acute changes noted -SW on board for discharge planning. Encourage patient to participate in groups to work on coping skills. Patient is agreeable to be transition onto a long- acting injection to help ensure compliance, likely discharge tomorrow if patient is doing well will be going back to his apartment with [facility] follow-up.
[2024-07-17] MEDS: DULoxetine HCL 30 MG CAPSULE.DR PO ONE (13:00)
[2024-07-18 00:09] VITALS: BP 136/82; PULSE 76; RESP 16; TEMP 97.9
--- NOTE | 2024-07-18 05:33 | P.MDCNMH ---
History of Present Illness H&P Date: 07/16/24 Patient is a 34-year-old male with history of bipolar disorder and ASD who presented for evaluation increased anxiety and depression. Medicine was consulted for medical evaluation. Patient states he has been recently diagnosed with hypertension and is unsure of medication he takes. He also attests to having a sinus infection over the last week which she states has began to improve. He denies fever, chest pain, shortness of breath, abdominal pain, weakness, dizziness, dysuria. Patient is afebrile, blood pressure 122/74, pulse 81, O2 saturation 99 % on room air. CBC is WNL, ALT 60, cholesterol 229, LDL 161, UA significant for 1+ protein, amorphous sediment moderate. Urine tox findings of tricyclic antidepressants, benzodiazepine, marijuana. CT head independently interpreted with findings of no acute bleed or mass effect, chronic inflammatory changes of ethmoid and maxillary sinuses with superimposed acute sinusitis. Social history: Patient has occasional alcohol use, denies tobacco use, uses marijuana occasionally. Review of systems: Reviewed, pertinent positive negatives as per HPI Gen: In NAD, non-toxic HEENT: normocephalic, atraumatic, hearing acuity is intact, mucous membranes moist CVS: perfusing all extremities well, no pitting edema Respiratory: symmetric chest expansion, no accessory muscle use GI: soft, NTTP, ND : no suprapubic tenderness, no CVA tenderness MSK/Derm: Several erythematous facial rashes, no cyanosis Neuro: CN II-XII intact, no motor weakness Assessment/plan: #Hypertension Currently normotensive Taking clonidine 0.1 mg daily for aggression and impulsivity, with added antihypertensive benefit No repeat labs needed at this time # Bipolar disorder -Management per primary psychiatry service Thank you for this consult, please reach out if any further questions/concerns. 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 Pt verbalizes occasional use of alcohol and occasional use of MJ Past Drug Use History: Marijuana - Past Family History Mother Additional Family Medical History / Comment(s): Mother is alive at age 60 with history of bipolar, Crohn's disease Father Family Medical History: Myocardial Infarction ([place]) Additional Family Medical History / Comment(s): Father is alive at age 55 with history of 2 myocardial infarctions. Sister(s) Additional Family Medical History / Comment(s): He has one sister with no major medical problems. Medications and Allergies Home Medications Medication Instructions Recorded Confirmed Type FLUoxetine HCL [PROzac] 40 mg PO DAILY 30 Days #30 cap 11/10/22 07/15/24 Rx QUEtiapine FUMARATE [SEROquel] 300 mg PO HS 07/15/24 07/15/24 History hydrOXYzine pamoate [Vistaril] 25 mg PO DAILY PRN 07/15/24 07/15/24 History Allergies Allergy/AdvReac Type Severity Reaction Status Date / Time No Known Allergies Allergy Verified 07/15/24 14:21 Physical Exam Vitals: Vital Signs Temp Resp BP Pulse Ox 07/16/24 13:00 20 122/74 07/16/24 07:02 98.4 F 133/79 99 Cranial Nerve Examination - Cranial Nerves Cranial Nerve II- Optic: Intact Cranial Nerve III- Oculomotor: Intact Cranial Nerve IV- Trochlear: Intact Cranial Nerve V- Trigeminal: Intact Cranial Nerve - Abducens: Intact Cranial Nerve VII- Facial: Intact Cranial Nerve VIII- Auditory: Intact Cranial Nerve IX- Glossopharyngeal: Intact Cranial Nerve X- Vagus: Intact Cranial Nerve XI- Accessory: Intact Cranial Nerve XII- Hypoglossal: Intact Results CBC & Chem 7: 07/16/24 07:41 07/16/24 07:41 Labs: Abnormal Lab Results - Last 24 Hours (Table) 07/15/24 07/16/24 Range/Units 11:28 07:41 ALT 60 H (4-49) U/L Cholesterol 229.00 H (0.00-200.00) mg/dL LDL Cholesterol, Calc 161.1 H (0.0-131.0) mg/dL Urine Protein 1+ H (Negative) Amorphous Sediment Moderate H (None) /hpf Urine Mucus Few H (None) /hpf
[2024-07-18] MEDS: DULoxetine HCL 60 MG CAPSULE.DR PO SCH (09:03)
--- NOTE | 2024-07-18 11:20 | P.DS ---
Providers Date of admission: 07/15/24 19:59 Expected date of discharge: 07/18/24 Attending physician: Shen Yan MD Consults: 07/15/24 20:03 Consult Physician Routine Consulting Provider: [facility] Consult Reason/Comments: History and Physical, New Admission Do you want consulting provider notified?: Yes Primary care physician: Ab Webster Pro - Discharge Diagnosis(es) (1) Bipolar disorder Current Visit: Yes Status: Acute Priority: High (2) Autism spectrum disorder Current Visit: Yes Status: Acute Priority: Medium (3) Intermittent explosive disorder Current Visit: Yes Status: Acute Priority: High (4) Cannabis use disorder Current Visit: Yes Status: Acute Priority: Medium Hospital Course: Admission HPI: Admission note was completed by script writer "Patient is a single, unemployed, 32-year-old male with a significant history of autism spectrum disorder who is currently living in an apartment, [facility]. Patient presented to the hospital yesterday and was admitted to the mental health unit. Patient was seen by EPS social worker delinquency prevention and according to note "Clinician met with Josh in ER 13 to eval. Cl sitting in bed, awake, A/O x4 presenting via self due to increased anxiety/depression. Cl reports " I feel like there is brain damage from hitting my head." When asked to elaborate cl reports self harming via "smashing my head into the wall." Cl reports this was enough to cause property damage to their home. Cl reprots they are autistic and struggling with "sound sensitivity" increased irritability, mood swings, low frustration tolerance, racing thoughts, not feeling safe, and concerned about inadvertently hurting someone with their intense anger. Cl also reports struggling with focus, attention, isolation, not feeling present in their day, loss of interest, motivation. Cl was also observed talking out loud to themselves in the room. Cl potentially was responding via opinion of what they were watching on TV. Cl reports these symptoms were following and argument with their father a few days prior to admission. Cl reports feeling fearful and not able to be safe." Patient was seen today by script writer wandering the hallways. Patient was initially fairly directable and attempts to cooperate. The patient reports previous diagnoses of autism spectrum disorder and bipolar disorder. Claims that he has been feeling more "overwhelmed" and also overstimulated. States that he needs to be evaluated for a "head injury" and claims that he has been banging his head multiple times against the drywall in his apartment. He states that he has been having memory loss possible loss of consciousness. Claims that he feels more sensitive to his environment. Claims that he has been feeling more "explosive" and unpredictable. He is reporting depression and anxiety. When speaking about medications he was very hesitant about starting new medications. Denies any issues with sleep or appetite., he is currently denying any suicidal or homicidal ideations intent or plan. Nuys any auditory or visual hallucinations. Not reporting any paranoia. Patient's urine drug screen is positive for TCAs, benzodiazepines and THC. Does not use cigarettes. Claims that he smokes marijuana about 2 times a week, drinks alcohol occasionally. Patient was fairly focused on being evaluated for "head trauma"" Hospital course: Upon admission to the unit patient was directable and agreeable to commence treatment and signed adult voluntary form. Patient was initially irritable agitated, however with time and treatment patient got along well with other patients on the unit and followed unit protocol. Patient was compliant with the medications and denied any side effects throughout hospital course. Patient was started on Cymbalta increased to dose of 60 mg daily for mood/anxiety, clonidine 0.1 mg daily for impulsivity, Invega p.o. 3 mg nightly for agitation/mood stabilization. Patient was agreeable to be transitioned onto Uzedy sq 100 mg given on 07/18 to help ensure compliance and stability of symptoms. Patient spoke of his stressors and engaged in therapy both group/activity therapy. Patient was also seen by medical team for history and physical exam. Throughout the course of the hospitalization patient gradually improved with regards to mood, anxiety, agitation/lability sleep and returned back to their baseline level of functioning. On the day of discharge patient denied any suicidal or homicidal ideations intent or plan denied any auditory or visual hallucinations. Patient endorsed wanting to live for their health and family. The patient denied any access to guns or weapons. Patient denied any paranoia and did not endorse any delusions. Patient does have a significant history of substance abuse and was counseled on abstaining from all substances including alcohol and marijuana. Patient was offered however declined inpatient substance-abuse rehab. Patient elected to do outpatient substance use treatment program through their outpatient provider.. Patient was also counseled on the medications and need for regular compliance and was encouraged to follow-up with their outpatient appointment for mental health and also for primary care. Mental status exam: General Appearance: Patient appears to be have short hair, scabs on his forehead, stated age is alert, pleasant, and cooperative. Patient is in no acute distress and has improved hygiene and grooming Behavior: Patient is calmly seated without any agitated behavior. Speech: Patient's speech is fluent and nonpressured. Mood/Affect: Patient reports their mood is "good", affect is congruent and euthymic. Suicidality/Homicidality: Patient denies having any suicidal or homicidal ideation intent or plan. Perceptions: Patient denies any auditory or visual hallucinations. Though content/process: There is no evidence of any delusional thought content and thought process is linear and goal-directed. Memory and concentration: AOX3, grossly intact for the purposes of this session. Can spell "WORLD" backwards correctly. Judgment and insight: Chronically poor, however has improved with guarded prognosis Impression: Bipolar disorder unspecified Autism spectrum disorder Intermittent explosive disorder Cannabis use disorder Plan: -Continue with discharge today as patient has improved and stabilized [facility] and is not currently an imminent threat to themself and/or others. Patient will remain at chronically elevated risk for harm to self and/or others due to their impulsivity and substance abuse. -Continue medications: Cymbalta 60 mg daily for mood/anxiety, clonidine 0.1 mg daily for impulsivity, given Uzedy SQ 100 mg on 07/18 to help ensure compliance, next dose will be due in 1 month on 08/15 at [facility] -Patient was counseled on the need for medication compliance and appropriate follow-up at mental health and also primary care for medical issues. Patient verbalized understanding and agreed. -Social work to help coordinate patients discharge today. also to ensure safe home environment that guns/weapons are either removed from the home or locked away. Social work also to arrange for patients follow up appointments with [facility] for psychiatric care along with follow up with primary care provider. -Patient counseled on abstaining from recreational drugs and marijuana and alcohol. Was informed/educated on the adverse effects on their physical and mental health. Patient verbally agreed and understood. -Patient was instructed to return to the hospital or seek immediate medical care if their psychiatric or medical symptoms do worsen or reoccur. Allergies Allergy/AdvReac Type Severity Reaction Status Date / Time No Known Allergies Allergy Verified 07/15/24 14:21 Laboratory Results WBC 6.7 k/uL (3.8-10.6) 07/16/24 07:41 RBC 5.48 m/uL (4.30-5.90) 07/16/24 07:41 Hgb 16.3 gm/dL (13.0-17.5) 07/16/24 07:41 Hct 49.1 % (39.0-53.0) 07/16/24 07:41 MCV 89.5 fL (80.0-100.0) 07/16/24 07:41 MCH 29.7 pg (25.0-35.0) 07/16/24 07:41 MCHC 33.2 g/dL (31.0-37.0) 07/16/24 07:41 RDW 12.8 % (11.5-15.5) 07/16/24 07:41 Plt Count 225 k/uL (150-450) 07/16/24 07:41 MPV 9.3 07/16/24 07:41 Neutrophils % 66 % 07/16/24 07:41 Lymphocytes % 22 % 07/16/24 07:41 Monocytes % 8 % 07/16/24 07:41 Eosinophils % 2 % 07/16/24 07:41 Basophils % 1 % 07/16/24 07:41 Neutrophils # 4.4 k/uL (1.3-7.7) 07/16/24 07:41 Lymphocytes # 1.5 k/uL (1.0-4.8) 07/16/24 07:41 Monocytes # 0.5 k/uL (0-1.0) 07/16/24 07:41 Eosinophils # 0.1 k/uL (0-0.7) 07/16/24 07:41 Basophils # 0.1 k/uL (0-0.2) 07/16/24 07:41 Sodium 138 mmol/L (137-145) 07/16/24 07:41 Potassium 4.4 mmol/L (3.5-5.1) 07/16/24 07:41 Chloride 102 mmol/L (98-107) 07/16/24 07:41 Carbon Dioxide 28 mmol/L (22-30) 07/16/24 07:41 Anion Gap 8 mmol/L 07/16/24 07:41 BUN 16 mg/dL (9-20) 07/16/24 07:41 Creatinine 0.88 mg/dL (0.66-1.25) 07/16/24 07:41 Est GFR (CKD-EPI)AfAm >90 (>60 ml/min/1.73 sqM) 07/16/24 07:41 Est GFR (CKD-EPI)NonAf >90 (>60 ml/min/1.73 sqM) 07/16/24 07:41 Glucose 98 mg/dL (74-99) 07/16/24 07:[address] Glu mg/dL 108 mg/dL 07/16/24 07:41 Hemoglobin A1c 5.4 % (<=6.0) 07/16/24 07:41 Calcium 9.4 mg/dL (8.4-10.2) 07/16/24 07:41 Total Bilirubin 0.8 mg/dL (0.2-1.3) 07/16/24 07:41 Conjugated Bilirubin 0.0 mg/dL (0.0-0.3) 07/16/24 07:41 Unconjugated Bilirubin 0.7 mg/dL (0.0-1.1) 07/16/24 07:41 Delta Bilirubin 0.1 mg/dL (0.0-0.2) 07/16/24 07:41 AST 51 U/L (17-59) 07/16/24 07:41 ALT 60 U/L (4-49) H 07/16/24 07:41 Alkaline Phosphatase 84 U/L (38-126) 07/16/24 07:41 Total Protein 7.3 g/dL (6.3-8.2) 07/16/24 07:41 Albumin 4.6 g/dL (3.5-5.0) 07/16/24 07:41 Triglycerides 133.00 mg/dL (0.00-149.00) 07/16/24 07:41 Cholesterol 229.00 mg/dL (0.00-200.00) H 07/16/24 07:41 LDL Cholesterol, Calc 161.1 mg/dL (0.0-131.0) H 07/16/24 07:41 VLDL Cholesterol, Calc 26.60 mg/dL (5.00-40.00) 07/16/24 07:41 HDL Cholesterol 41.30 mg/dL (40.00-60.00) 07/16/24 07:41 Cholesterol/HDL Ratio 5.54 Ratio 07/16/24 07:41 TSH 2.040 mIU/L (0.465-4.680) 07/16/24 07:41 Urine Color Yellow 07/15/24 11:28 Urine Appearance Turbid (Clear) 07/15/24 11:28 Urine pH 5.5 (5.0-8.0) 07/15/24 11:28 Ur Specific [place] 1.033 (1.001-1.035) 07/15/24 11:28 Urine Protein 1+ (Negative) H 07/15/24 11:28 Urine Glucose (UA) Negative (Negative) 07/15/24 11:28 Urine Ketones Negative (Negative) 07/15/24 11:28 Urine Blood Negative (Negative) 07/15/24 11:28 Urine Nitrite Negative (Negative) 07/15/24 11:28 Urine Bilirubin Negative (Negative) 07/15/24 11:28 Urine Urobilinogen <2.0 mg/dL (<2.0) 07/15/24 11:28 Ur Leukocyte Esterase Negative (Negative) 07/15/24 11:28 Amorphous Sediment Moderate /hpf (None) H 07/15/24 11:28 Urine Mucus Few /hpf (None) H 07/15/24 11:28 Urine Opiates Screen Not Detected (NotDetected) 07/15/24 11:28 Ur Oxycodone Screen Not Detected (NotDetected) 07/15/24 11:28 Urine Methadone Screen Not Detected (NotDetected) 07/15/24 11:28 Ur Barbiturates Screen Not Detected (NotDetected) 07/15/24 11:28 U Tricyclic Antidepress Detected (NotDetected) H 07/15/24 11:28 Ur Phencyclidine Scrn Not Detected (NotDetected) 07/15/24 11:28 Ur Amphetamines Screen Not Detected (NotDetected) 07/15/24 11:28 U Methamphetamines Scrn Not Detected (NotDetected) 07/15/24 11:28 U Benzodiazepines Scrn Detected (NotDetected) H 07/15/24 11:28 Urine Cocaine Screen Not Detected (NotDetected) 07/15/24 11:28 U Marijuana (THC) Screen Detected (NotDetected) H 07/15/24 11:28 SARS-CoV-2 (PCR) Not Detected (Not Detectd) 07/15/24 11:19 Vital Signs Temp 97.9 F 07/18/24 00:08 Pulse 76 07/18/24 00:08 Resp 16 07/18/24 00:08 BP 136/82 07/18/24 00:08 Pulse Ox 99 07/18/24 00:08 FiO2 Patient Condition at Discharge: Stable Plan - Discharge Summary New Discharge Prescriptions: New DULoxetine HCL [Cymbalta] 60 mg PO DAILY 30 Days #30 cap cloNIDine HCL [Catapres] 0.1 mg PO DAILY 30 Days #30 tab risperiDONE [Uzedy] 100 mg SQ QMONTHLY #1 each Discontinued QUEtiapine FUMARATE [SEROquel] 300 mg PO HS FLUoxetine HCL [PROzac] 40 mg PO DAILY 30 Days #30 cap hydrOXYzine pamoate [Vistaril] 25 mg PO DAILY PRN PRN Reason: Anxiety Discharge Medication List DULoxetine HCL [Cymbalta] 60 mg PO DAILY 30 Days #30 cap 07/18/24 [Rx] cloNIDine HCL [Catapres] 0.1 mg PO DAILY 30 Days #30 tab 07/18/24 [Rx] risperiDONE [Uzedy] 100 mg SQ QMONTHLY #1 each 07/18/24 [Rx] Follow up Appointment(s)/Referral(s): [facility] [Outside] - 07/22/24 12:00 pm (07/22/2024 12:00PM - 1:00PM RHONDA RICKETTS 07/22/2024 1:00PM - 1:30PM MECHE MEJIA ) [facility] - 1-2 days Activity/Diet/Wound Care/Special Instructions: [facility] Discharge Info Avoid the use of street drugs and alcohol. Take all medications as prescribed. When you are in need of refills on your medications, please contact your outpatient medical provider and/or outpatient psychiatrist. Please go to your scheduled outpatient appointments for aftercare treatment. If symptoms return or become worse, call the crisis line at or and/or visit the nearest emergency room for assistance. National Suicide and Crisis Lifeline - call or text 988 Discharge Disposition: HOME SELF-CARE
[2024-07-18] MEDS: risperiDONE 100 MG/0.28 ML SYR (NO COST) SQ SCH (13:06)
[2024-08-15] MEDS ORDERED: risperiDONE 100 MG/0.28 ML SYR (NO COST) SQ SCH (09:00)
== END 2024-07-18 13:28 | disposition home or self-care (01) | DRG 753 ==
LOC: EC 10:13 → 3MHU 19:59
PROVIDERS: ADMIT Psychiatry & Neurology Psychiatry; ATTEND Psychiatry & Neurology Psychiatry
DX: F31.9 Bipolar disorder, unspecified (principal); F12.10 Cannabis abuse, uncomplicated; F41.9 Anxiety disorder, unspecified; F63.81 Intermittent explosive disorder; F84.0 Autistic disorder; I10 Essential (primary) hypertension; Z79.899 Other long term (current) drug therapy; Z87.891 Personal history of nicotine dependence; Z56.0 Unemployment, unspecified; Z28.310 Unvaccinated for COVID-19; Z28.21 Immunization not carried out because of patient refusal; Z11.52 Encounter for screening for COVID-19
CPT/HCPCS: 70450; 80053; 80061; 80306; 81001; 82075; 82248; 83036; 84443; 85025; 87635; 99285

== ENCOUNTER 2024-10-24 07:41 | Inpatient (IN) | payer MEDICAID, MEDICARE, OTHER ==
--- NOTE | 2024-10-24 08:12 | ED ---
General Adult HPI - General Chief complaint: Psychiatric Symptoms Stated complaint: mental health Time Seen by Provider: 10/24/24 07:43 Source: patient, RN notes reviewed Mode of arrival: ambulatory Limitations: no limitations - History of Present Illness Initial comments: Patient is a 34-year-old male present to the emergency department with concerns for depression and suicidal thoughts. Symptoms have been occurring for a couple of weeks. Patient has had multiple stressors. Patient states he lacks resources. Patient states he lacks food. Patient is not eating well. Patient is not sleeping well. No homicidal thoughts. No hallucinations. No alcohol or street drug use. - Related Data Previous Rx's Medication Instructions Recorded DULoxetine HCL [Cymbalta] 60 mg PO DAILY 30 Days #30 cap 07/18/24 cloNIDine HCL [Catapres] 0.1 mg PO DAILY 30 Days #30 tab 07/18/24 risperiDONE [Uzedy] 100 mg SQ QMONTHLY #1 each 07/18/24 Allergies Allergy/AdvReac Type Severity Reaction Status Date / Time No Known Allergies Allergy Verified 10/24/24 07:49 Review of Systems ROS Statement: Those systems with pertinent positive or pertinent negative responses have been documented in the HPI. ROS Other: All systems not noted in ROS Statement are negative. Constitutional: Denies: fever Eyes: Denies: eye pain ENT: Denies: ear pain Respiratory: Denies: cough Cardiovascular: Denies: chest pain Gastrointestinal: Denies: abdominal pain Neurological: Denies: weakness Psychiatric: Reports: depression Past Medical History Past Medical History: No Reported History Additional Past Medical History / Comment(s): autism, psoriasis History of Any Multi-Drug Resistant Organisms: None Reported Past Surgical History: No Surgical Hx Reported Past Anesthesia/Blood Transfusion Reactions: No Reported Reaction Past Psychological History: Bipolar, Depression Smoking Status: Former smoker Past Alcohol Use History: Occasional Past Drug Use History: Marijuana - Past Family History Mother Additional Family Medical History / Comment(s): Mother is alive at age 60 with history of bipolar, Crohn's disease Father Family Medical History: Myocardial Infarction ([place]) Additional Family Medical History / Comment(s): Father is alive at age 55 with history of 2 myocardial infarctions. Sister(s) Additional Family Medical History / Comment(s): He has one sister with no major medical problems. General Exam Limitations: no limitations General appearance: alert, in no apparent distress Head exam: Present: normocephalic Eye exam: Present: normal appearance Neck exam: Present: normal inspection Respiratory exam: Present: normal lung sounds bilaterally Cardiovascular Exam: Present: regular rate, normal rhythm GI/Abdominal exam: Present: soft. Absent: tenderness Extremities exam: Present: normal inspection Neurological exam: Present: alert Psychiatric exam: Present: depressed Skin exam: Present: rash (Diffuse red patches with scaling consistent with psoriasis) Course Vital Signs 10/24/24 07:44 Temperature 97.9 F Pulse Rate 70 Respiratory 18 Rate Blood Pressure 113/70 O2 Sat by Pulse 97 Oximetry Medical Decision Making - Medical Decision Making Was pt. sent in by a medical professional or institution (, PA, TYPIST, urgent care, hospital, or jail...) When possible be specific @ -No Did you speak to anyone other than the patient for history (EMS, parent, family, police, friend...)? What history was obtained from this source @ -No Did you review nursing and triage notes (agree or disagree)? Why? @ -I reviewed and agree with nursing and triage notes Were old charts reviewed (outside hosp., previous admission, EMS record, old EKG, old radiological studies, urgent care reports/EKG's, jail records)? Report findings @ -No old charts were reviewed Differential Diagnosis (chest pain, altered mental status, abdominal pain women, abdominal pain men, vaginal bleeding, weakness, fever, dyspnea, syncope, headache, dizziness, GI bleed, back pain, seizure, CVA, palpatations, mental health, musculoskeletal)? @ -Differential Mental Health Depression, anxiety, bipolar, psychosis, schizophrenia, borderline personality, situational depression, adjustment disorder, behavioral disorder, brain tumor, malingering, substance abuse, encephalopathy, medication reaction, dementia, hypothyroidism, degenerative neurologic disorder, lupus.... This is not meant to be all-inclusive list EKG interpreted by me (3pts min.). @ -As above X-rays interpreted by me (1pt min.). @ -None done CT interpreted by me (1pt min.). @ -None done U/S interpreted by me (1pt. min.). @ -None done What testing was considered but not performed or refused? (CT, X-rays, U/S, labs)? Why? @ -None What meds were considered but not given or refused? Why? @ -None Did you discuss the management of the patient with other professionals (professionals i.e. , PA, TYPIST, lab, RT, psych nurse, social worker health services, speech and hearing clinic director, teacher, child support case officer, caseworker intake)? Give summary @ -Case was discussed with cooler worker with plans for admission Was smoking cessation discussed for >3mins.? @ -No Was critical care preformed (if so, how long)? @ -No Were there social determinants of health that impacted care today? How? (Homelessness, low income, unemployed, alcoholism, drug addiction, transportation, low edu. Level, literacy, decrease access to med. care, m[facility], rehab)? @ -No Was there de-escalation of care discussed even if they declined (Discuss DNR or withdrawal of care, Hospice)? DNR status @ -No What co-morbidities impacted this encounter? (DM, HTN, Smoking, COPD, CAD, Cancer, CVA, ARF, Chemo, Hep., AIDS, mental health diagnosis, sleep apnea, morbid obesity)? @ -History of depression Was patient admitted / discharged? Hospital course, mention meds given and route, prescriptions, significant lab abnormalities, going to OR and other pertinent info. @ -Patient presents with depression and suicidal thoughts. Patient seen by mental health with plans for admission. Patient to admit to psychiatric service Undiagnosed new problem with uncertain prognosis? @ -No Drug Therapy requiring intensive monitoring for toxicity (Heparin, Nitro, Insulin, Cardizem)? @ -No Were any procedures done? @ -No Diagnosis/symptom? @ -Depression Acute, or Chronic, or Acute on Chronic? @ -Acute Uncomplicated (without systemic symptoms) or Complicated (systemic symptoms)? @ -Complicated with suicidal ideation Side effects of treatment? @ -No Exacerbation, Progression, or Severe Exacerbation? @ -No Poses a threat to life or bodily function? How? (Chest pain, [place], PA, pneumonia, PE, COPD, DKA, ARF, appy, cholecystitis, CVA, Diverticulitis, Homicidal, Suicidal, threat to staff... and all critical care pts) @ -No Disposition Clinical Impression: Depression Disposition: TRANSFER TO PSYCH HOSP/UNIT Is patient prescribed a controlled substance at d/c from ED?: No Referrals: None,Stated [Primary Care Provider] - 1-2 days Time of Disposition: 09:14
[2024-10-24 10:52] LABS: Amphetamine Screen,Urine Not Detected (NotDetected); Barbiturate Screen,Urine Not Detected (NotDetected); Benzodiazepines Screen,Urine Not Detected (NotDetected); Cocaine Screen,Urine Not Detected (NotDetected); Methadone Screen, Urine Not Detected (NotDetected); Opiate Screen,Urine Not Detected (NotDetected); Oxycodone Screen, Urine Not Detected (NotDetected); Phencyclidine Screen,Urine Not Detected (NotDetected); Tricyclic Antidepressant,Urine Not Detected (NotDetected); Urn Cannabinoid Scrn Detected (NotDetected)
[2024-10-24 11:12] LABS: Influenza A Not Detected (Not Detectd); Influenza B Not Detected (Not Detectd); RSV Not Detected (Not Detectd)
[2024-10-24] MEDS ORDERED: MAG HYDROX/AL HYDROX/SIMETH 355 ML BOTTLE PO PRN (11:42)
[2024-10-24] MEDS ORDERED: ACETAMINOPHEN TAB 325 MG TAB PO PRN (11:42)
[2024-10-24] MEDS ORDERED: MAGNESIUM HYDROXIDE 2,400 MG/30 ML CUP PO PRN (11:42)
[2024-10-24] MEDS ORDERED: LORazepam 2 MG/ML INJ IM PRN (11:49)
[2024-10-24] MEDS ORDERED: haloperidoL 5 MG TAB PO PRN (11:49)
[2024-10-24] MEDS ORDERED: HALOPERIDOL LACTATE 5 MG/ML 1 ML VIAL IM PRN (11:49)
[2024-10-24] MEDS: LORazepam 1 MG TAB PO PRN (11:59)
[2024-10-24 14:34] LABS: Appearance,Urine Clear (Clear); Bilirubin,Urine Negative (Negative); Blood,Urine Negative (Negative); Color,Urine Yellow; Glucose,Urine (UA) Negative (Negative); Ketones,Urine Negative (Negative); Leukocyte Esterase,Urine Negative (Negative); Nitrite,Urine Negative (Negative); Protein,Urine Negative (Negative); Specific Gravity,Urine 1.029 (1.001-1.035); Urobilinogen,Urine <2.0 mg/dL (<2.0)
[2024-10-24] MEDS: IBUPROFEN 600 MG TAB PO PRN (23:37)
[2024-10-24] MEDS ORDERED: MELATONIN 5 MG TABLET PO PRN (23:43)
[2024-10-25] MEDS: DULoxetine HCL 60 MG CAPSULE.DR PO SCH (08:17)
[2024-10-25] MEDS: cloNIDine HCL 0.1 MG TAB PO SCH (08:17)
[2024-10-25] MEDS: NICOTINE 14MG/24HR PATCH TRANSDERM SCH (08:18)
[2024-10-25 08:46] LABS: Basophils # (A) 0.04 10*3/uL (0.00-0.10); Basophils % (A) 0.6 %; Eosinophils # (A) 0.13 10*3/uL (0.04-0.35); HGB 16.7 g/dL (13.0-17.0); Lymphocytes # (A) 1.39 10*3/uL (0.90-5.00); Lymphocytes % (A) 21.6 %; MCH 30.3 pg (27.0-32.0); MCHC 34.8 g/dL (32.0-37.0); MCV 87.1 fL (80.0-97.0); Mean Platelet Volume 12.5 fL (9.5-12.2); Monocytes # (A) 0.48 10*3/uL (0.20-1.00); Monocytes % (A) 7.4 %; Neutrophils % (A) 68.2 %; Platelet Count 194 10*3/uL (140-440); RBC 5.51 10*6/uL (4.40-5.60); WBC 6.45 10*3/uL (4.50-10.00)
[2024-10-25 09:00] LABS: ALT 36 U/L (4-49); AST 31 U/L (17-59); African American GFR (CKD) >90 (>60 ml/min/1.73 sqM); Albumin 4.5 g/dL (3.5-5.0); Alkaline Phosphatase 66 U/L (38-126); Anion Gap 6 mmol/L; Blood Urea Nitrogen 17 mg/dL (9-20); Calcium 9.7 mg/dL (8.4-10.2); Carbon Dioxide 29 mmol/L (22-30); Chloride 103 mmol/L (98-107); Glucose 83 mg/dL (74-99); Non-African American GFR(CKD) >90 (>60 ml/min/1.73 sqM); Potassium 4.6 mmol/L (3.5-5.1); Sodium 138 mmol/L (137-145); Total Bilirubin 0.7 mg/dL (0.2-1.3); Total Protein 7.4 g/dL (6.3-8.2)
--- NOTE | 2024-10-25 14:26 | P.MDCNMH ---
History of Present Illness H&P Date: 10/25/24 Patient is a 34-year-old male with history of plaque psoriasis, bipolar and depression in behavioral health unit. [facility], [place] physicians consulted for medical management. Vital signs reviewed, stable. WBC 6.45, hemoglobin 16.7, platelet 194, creatinine 1.04, A1c 5.4, TSH 2.06, urine toxicology positive for marijuana, urinalysis negative. Patient denies any chest pain, shortness of breath, abdominal pain, nausea, vomiting, urinary or bowel complaints. Claims that he occasionally drinks alcohol, and smokes marijuana. Pertinent positives and negatives as discussed in HPI, a complete review of systems was performed and all other systems are negative. Patient seen and examined at bedside. Vital signs reviewed General: nontoxic, no distress, appears at stated age Derm: warm, dry, multiple scales/black with surrounding erythema involving extensor surfaces as well as forehead Head: atraumatic, normocephalic, symmetric Eyes: EOMI, no lid lag, anicteric sclera, pupils equal round reactive to light ENT: Nose and ears atraumatic Neck: No thyromegaly, supple Mouth: no lip lesion, mucus membranes moist Cardiovascular: S1S2 reg, no murmur, no edema Lungs: clear to auscultation bilateral, no rhonchi, no rales, no wheeze, no accessory muscle use Abdominal: soft, nontender to palpation, no guarding, no appreciable organomegaly Ext: no gross muscle atrophy, muscle strength muscle strength 5 out of 5 in all 4 extremities, no contractures Neuro: CN II-XII grossly intact Psych: Alert, oriented, appropriate affect Assessment/Plan: Plaque psoriasis - Patient is not on any treatment, does not see a braze operator - Claims that he is not bothered by his plaque psoriasis, does not want to see a braze operator at the moment - Recommended to see PCP for possible treatment Marijuana use disorder - Counseled regarding cessation Bipolar/depression - Management per psychiatry Thank you for allowing us to participate in the care of this pleasant patient. Do not hesitate to contact us with questions. Someone can be reached from the [facility] [place] [facility] hospitalist group all hours of the day at [phone] or via [employer]. Past Medical History Past Medical History: No Reported History Additional Past Medical History / Comment(s): autism, psoriasis History of Any Multi-Drug Resistant Organisms: None Reported Past Surgical History: No Surgical Hx Reported Past Anesthesia/Blood Transfusion Reactions: No Reported Reaction Past Psychological History: Anxiety, Depression Smoking Status: Former smoker Past Alcohol Use History: Occasional Additional Past Alcohol Use History / Comment(s): He is single and does not have any children. Pt verbalizes occasional use of alcohol and occasional use of MJ Past Drug Use History: Marijuana - Past Family History Mother Additional Family Medical History / Comment(s): Mother is alive at age 60 with history of bipolar, Crohn's disease Father Family Medical History: Myocardial Infarction ([place]) Additional Family Medical History / Comment(s): Father is alive at age 55 with history of 2 myocardial infarctions. Sister(s) Additional Family Medical History / Comment(s): He has one sister with no major medical problems. Medications and Allergies Home Medications Medication Instructions Recorded Confirmed Type DULoxetine HCL [Cymbalta] 60 mg PO DAILY 30 Days #30 cap 07/18/24 10/24/24 Rx cloNIDine HCL [cloNIDine HCL ER] 0.1 mg PO DAILY 10/24/24 10/24/24 History risperiDONE [Uzedy] 100 mg SQ Q28D 10/24/24 10/24/24 History Allergies Allergy/AdvReac Type Severity Reaction Status Date / Time No Known Allergies Allergy Verified 10/24/24 10:19 Physical Exam Vitals: Vital Signs Temp Pulse Resp BP Pulse Ox 10/25/24 08:17 97.5 F L 75 16 110/75 98 10/24/24 21:00 99.6 F 68 16 121/76 98 Cranial Nerve Examination - Cranial Nerves Cranial Nerve II- Optic: Intact Cranial Nerve III- Oculomotor: Intact Cranial Nerve IV- Trochlear: Intact Cranial Nerve V- Trigeminal: Intact Cranial Nerve - Abducens: Intact Cranial Nerve VII- Facial: Intact Cranial Nerve VIII- Auditory: Intact Cranial Nerve IX- Glossopharyngeal: Intact Cranial Nerve X- Vagus: Intact Cranial Nerve XI- Accessory: Intact Cranial Nerve XII- Hypoglossal: Intact Results CBC & Chem 7: 10/25/24 07:22 10/25/24 07:22 Labs: Abnormal Lab Results - Last 24 Hours (Table) 10/25/24 Range/Units 07:22 MPV 12.5 H (9.5-12.2) fL
--- NOTE | 2024-10-25 17:11 | P.HP ---
Psychiatric H&P - . H&P Date: 10/25/24 History & Physical: Allergies Allergy/AdvReac Type Severity Reaction Status Date / Time No Known Allergies Allergy Verified 10/24/24 10:19 Vital Signs Temp 97.5 F L 10/25/24 08:17 Pulse 75 10/25/24 08:17 Resp 16 10/25/24 08:17 BP 110/75 10/25/24 08:17 Pulse Ox 98 10/25/24 08:17 FiO2 Intake & Output 10/24/24 10/25/24 10/25/24 18:59 06:59 18:59 Weight 95.736 kg Laboratory Last Values WBC 6.45 10*3/uL (4.50-10.00) 10/25/24 07:22 RBC 5.51 10*6/uL (4.40-5.60) 10/25/24 07:22 Hgb 16.7 g/dL (13.0-17.0) 10/25/24 07:22 Hct 48.0 % (39.6-50.0) 10/25/24 07:22 MCV 87.1 fL (80.0-97.0) 10/25/24 07:22 MCH 30.3 pg (27.0-32.0) 10/25/24 07:22 MCHC 34.8 g/dL (32.0-37.0) 10/25/24 07:22 Plt Count 194 10*3/uL (140-440) 10/25/24 07:22 MPV 12.5 fL (9.5-12.2) H 10/25/24 07:22 Immature Gran % (Auto) 0.2 % 10/25/24 07:22 Neutrophils % 68.2 % 10/25/24 07:22 Lymphocytes % 21.6 % 10/25/24 07:22 Monocytes % 7.4 % 10/25/24 07:22 Eosinophils % 2.0 % 10/25/24 07:22 Basophils % 0.6 % 10/25/24 07:22 Immature Gran # 0.01 10*3/uL (0.00-0.04) 10/25/24 07:22 Neutrophils # 4.40 10*3/uL (1.80-7.70) 10/25/24 07:22 Lymphocytes # 1.39 10*3/uL (0.90-5.00) 10/25/24 07:22 Monocytes # 0.48 10*3/uL (0.20-1.00) 10/25/24 07:22 Eosinophils # 0.13 10*3/uL (0.04-0.35) 10/25/24 07:22 Basophils # 0.04 10*3/uL (0.00-0.10) 10/25/24 07:22 Sodium 138 mmol/L (137-145) 10/25/24 07:22 Potassium 4.6 mmol/L (3.5-5.1) 10/25/24 07:22 Chloride 103 mmol/L (98-107) 10/25/24 07:22 Carbon Dioxide 29 mmol/L (22-30) 10/25/24 07:22 Anion Gap 6 mmol/L 10/25/24 07:22 BUN 17 mg/dL (9-20) 10/25/24 07:22 Creatinine 1.04 mg/dL (0.66-1.25) 10/25/24 07:22 Est GFR (CKD-EPI)AfAm >90 (>60 ml/min/1.73 sqM) 10/25/24 07:22 Est GFR (CKD-EPI)NonAf >90 (>60 ml/min/1.73 sqM) 10/25/24 07:22 Glucose 83 mg/dL (74-99) 10/25/24 07:[address] Glu mg/dL 108 mg/dL 10/25/24 07:22 Hemoglobin A1c 5.4 % (<=6.0) 10/25/24 07:22 Calcium 9.7 mg/dL (8.4-10.2) 10/25/24 07:22 Total Bilirubin 0.7 mg/dL (0.2-1.3) 10/25/24 07:22 AST 31 U/L (17-59) 10/25/24 07:22 ALT 36 U/L (4-49) 10/25/24 07:22 Alkaline Phosphatase 66 U/L (38-126) 10/25/24 07:22 Total Protein 7.4 g/dL (6.3-8.2) 10/25/24 07:22 Albumin 4.5 g/dL (3.5-5.0) 10/25/24 07:22 TSH 2.060 mIU/L (0.465-4.680) 10/25/24 07:22 Urine Color Yellow 10/24/24 09:50 Urine Appearance Clear (Clear) 10/24/24 09:50 Urine pH 6.0 (5.0-8.0) 10/24/24 09:50 Ur Specific [place] 1.029 (1.001-1.035) 10/24/24 09:50 Urine Protein Negative (Negative) 10/24/24 09:50 Urine Glucose (UA) Negative (Negative) 10/24/24 09:50 Urine Ketones Negative (Negative) 10/24/24 09:50 Urine Blood Negative (Negative) 10/24/24 09:50 Urine Nitrite Negative (Negative) 10/24/24 09:50 Urine Bilirubin Negative (Negative) 10/24/24 09:50 Urine Urobilinogen <2.0 mg/dL (<2.0) 10/24/24 09:50 Ur Leukocyte Esterase Negative (Negative) 10/24/24 09:50 Urine Opiates Screen Not Detected (NotDetected) 10/24/24 09:52 Ur Oxycodone Screen Not Detected (NotDetected) 10/24/24 09:52 Urine Methadone Screen Not Detected (NotDetected) 10/24/24 09:52 Ur Barbiturates Screen Not Detected (NotDetected) 10/24/24 09:52 U Tricyclic Antidepress Not Detected (NotDetected) 10/24/24 09:52 Ur Phencyclidine Scrn Not Detected (NotDetected) 10/24/24 09:52 Ur Amphetamines Screen Not Detected (NotDetected) 10/24/24 09:52 U Methamphetamines Scrn Not Detected (NotDetected) 10/24/24 09:52 U Benzodiazepines Scrn Not Detected (NotDetected) 10/24/24 09:52 Urine Cocaine Screen Not Detected (NotDetected) 10/24/24 09:52 U Marijuana (THC) Screen Detected (NotDetected) H 10/24/24 09:52 Influenza Type A (PCR) Not Detected (Not Detectd) 10/24/24 09:53 Influenza Type B (PCR) Not Detected (Not Detectd) 10/24/24 09:53 RSV (PCR) Not Detected (Not Detectd) 10/24/24 09:53 SARS-CoV-2 (PCR) Not Detected (Not Detectd) 10/24/24 09:53 10/25/24 16:22 Patient is a 34-year-old male present to the emergency department with concerns for depression and suicidal thoughts. Symptoms have been occurring for a couple of weeks. Patient has had multiple stressors. Patient states he lacks resources. Patient states he lacks food. Patient is not eating well. Patient is not sleeping well. No homicidal thoughts. No hallucinations. Claims that he occasionally drinks alcohol, and smokes marijuana. 10/25/24 16:23 Is very difficult to interview the patient he had difficulty understanding often misinterpreted and would get defensive however I was able to redirect him and work through by talking real gentle he would then calm down again. He says that he has been diagnosed with autism. And that this leads to him being triggered by situations that he does not understand. In addition to that he has mood swings sometimes he will feel like he can handle the whole world and do almost anything other times he is anxious and agitated and other times he is depressed. He says that these moods will shift up and down on the same day. Sometimes he can see a trigger but quite often there is no trigger. At this point his rent is so high that when he finishes that he has $100 for utilities and food and he has gotten behind and this led him to feel hopeless and depressed. He has not worked in about 10 years and is on disability. He says his only socialization is when he goes over the [facility] and talks to a counselor there that he has very few supports and no contact with his family. He says the [facility] is trying to help him find a smaller cheaper place to live. Social history the patient is the oldest of 2 children born to his parents he has a younger sister. His parents when he was 5 dad remarried when patient was 7 he does not remember any abuse and he did go back and forth between the 2 Dad eventually got from the second lady and is currently living in the [facility] with his third . The patient has no contact with his sister on mother he thinks both of them have been diagnosed with bipolar and that there is a lot of mental illness on his mother's side of the family. In school he finished high school and a little training beyond that. No Substance use he uses marijuana perhaps twice a week to try to calm down alcohol also helps him calm down when he is having one of his moods into agitation but he does not use much alcohol. Current treatment: He is being seen at [facility] and they are currently treating him with duloxetine at 60 mg which she has taken for 2 months he is not sure if it has helped or not. He is also on Risperdal shot once a month 100 mg. He feels that that does help with moods and agitation. Past medications: The patient tried Depakote once and felt suicidal but he quit he remembers taking Seroquel and it did help him sleep he also was on Trileptal but cannot remember the dose he took Prozac and Zoloft but they made him agitated. On mental status exam the patient, as noted above, is very easily irritated when he misinterprets straightforward questions or comments. He is oriented to person place time and his self-care is adequate he was sleeping in the middle of the day avoiding everybody on the unit but he got up and came to talk to me readily. Self-care is adequate. He could remember 2-1/2 of 3 objects after 3 minutes, he could spell world backward, he could subtract 7 from 93 rapid, he could name the last 5 presidents, he can name for the [place] because he remembered then the memory helper homes so he remembered that one of the leg started with all but he could not remember the name of the [place]. Cats and snakes have tails he then could not think up any other similarities and got somewhat defensive when I tried to help him expand he did think of both of them being capable of being domesticated. But then could not think of any other similarity. For this saying the grass looks green on the sides of hands he was able to say, "go to the other side". At first he reacted like it was a impossible request but then he caught himself and was able to do it. Assessment he is hard to tell how much of his problem he is mood swing and how much of it is autistic overreaction to trigger and how much of it is just lacking in resources. Diagnosis cyclothymic disorder Autism spectrum disorder Major depression For now I am going to leave the duloxetine and the Risperdal in place it does not seem to be agitating him he is going to try to think through whether he is in fact doing better on the combination whether we should perhaps increase the duloxetine for better help on the depression and especially on getting agitated to easily. We did talk about Lamictal as being another possibility.
--- NOTE | 2024-10-26 08:57 | P.PN ---
Subjective Progress Note Date: 10/26/24 Principal diagnosis: Diagnosis cyclothymic disorder Autism spectrum disorder Major depression Subjective: Patient says he slept well has a good appetite but is we reviewed his symptoms he says has a great deal of difficulty with anxiety and irritability and feeling overwhelmed he also has a lot of trouble with being mindful and organized so he would like to try going up somewhat on the duloxetine as he has been on for 2 months and does not seem to quite be doing his job. On mental status exam the patient seems less easily irritated. He still misinterprets straightforward questions or comments but his attitude seems more open to trying to understand. Gait and station are normal self-care is adequate he came readily and was cooperative no agitation no aggression he denies suicidal thoughts or homicidal thoughts. Assessment: It is hard to tell how much of his problem is mood swing and how much of it is autistic overreaction to trigger and how much of it is just l acking in resources. Diagnosis cyclothymic disorder mostly depressed being treated with the duloxet ine and risperidone Autism spectrum disorder For now I am going to increase the duloxetine to 90 and leave the Risperdal in place. Objective - Vital Signs Vital signs: Vital Signs Temp 97.4 F L 10/25/24 21:00 Pulse 66 10/25/24 21:00 Resp 16 10/25/24 08:17 BP 109/80 10/25/24 21:00 Pulse Ox 97 10/25/24 21:00 FiO2 - Labs CBC & Chem 7: 10/25/24 07:22 10/25/24 07:22
[2024-10-26] MEDS: DULoxetine HCL 30 MG CAPSULE.DR PO ONE (09:12)
[2024-10-27] MEDS: DULoxetine HCL 30 MG CAPSULE.DR PO SCH (08:33)
--- NOTE | 2024-10-27 11:55 | P.PN ---
Progress Note - Text Progress Note Date: 10/27/24 Interval History: Patient was seen in his room and was directable and agreeable to speak with wr iter in the office. He states feeling better, feeling as though the current combination of medications is working well for him. He feels stable enough for discharge. He reports some restlessness at night and during the day however feels as though this is due to the environment as socializing is a trigger for him. He states he did attend group however had to leave early due to the environment. He finds Ativan helpful for anxiety. At this time patient denies any suicidal or homicidal ideations, intent or plan. Patient denies any auditory, visual hallucinations and denies any paranoia or delusions. Patient denies any side effects from the medications and has been compliant with meds. Mental Status Exam: General Appearance: Patient appears to be stated age is alert, directable, and cooperative. He has fair grooming and hygiene Behavior: Patient is calmly seated without any agitated behavior. Speech: Patient's speech is fluent and nonpressured. Mood/Affect: Mood is improving mildly, affect is congruent and constricted. Suicidality/Homicidality: Patient denies having any suicidal or homicidal ideation intent or plan. Perceptions: Patient denies any visual hallucinations and denies any auditory hallucinations Though content/process: There is no evidence of any delusional thought content and thought process is linear and goal-directed. Memory and concentration: AOX3, grossly intact for the purposes of this session Judgment and insight: Improving mildly Assessment Bipolar 1 disorder Autism spectrum disorder Social anxiety disorder Plan: -Patient continues to meet criteria for inpatient psychiatric admission for symptom stabilization and safety. Patient has signed adult voluntary form and medication consent and was placed in patient's chart. -Medications: Continue Cymbalta 90 mg daily for depression, Risperdal Uzedy 100 mg subcutaneous next due on 11/04/2024, clonidine 0.1 mg twice daily for anxiety -When necessary Ativan and Haldol for agitation/aggression. -Labs: wnl -SW on board for discharge planning. Encouraged the patient to participate in milieu. Anticipate discharge home tomorrow
[2024-10-28 10:04] VITALS: BP 127/79; PULSE 83; RESP 16; TEMP 97.4
--- NOTE | 2024-10-28 12:58 | P.DS ---
Providers Date of admission: 10/24/24 11:36 Expected date of discharge: 10/28/24 Attending physician: Glenna Cordon MD Consults: 10/24/24 11:42 Consult Physician Routine Consulting Provider: Elvia Physician Consult Reason/Comments: H&P Do you want consulting provider notified?: Yes Primary care physician: Stated None - Discharge Diagnosis(es) (1) Bipolar disorder Current Visit: Yes Status: Acute Priority: High (2) Social anxiety disorder Current Visit: Yes Status: Chronic Priority: Medium (3) Autism spectrum disorder Current Visit: Yes Status: Chronic Priority: Medium Hospital Course: Admission HPI: Admission note was completed by Dr. Mayfield "Patient is a 34-year-old male present to the emergency department with concerns for depression and suicidal thoughts. Symptoms have been occurring for a couple of weeks. Patient has had multiple stressors. Patient states he lacks resources. Patient states he lacks food. Patient is not eating well. Patient is not sleeping well. No homicidal thoughts. No hallucinations. Claims that he occasionally drinks alcohol, and smokes marijuana. Is very difficult to interview the patient he had difficulty understanding often misinterpreted and would get defensive however I was able to redirect him and work through by talking real gentle he would then calm down again. He says that he has been diagnosed with autism. And that this leads to him being triggered by situations that he does not understand. In addition to that he has mood swings sometimes he will feel like he can handle the whole world and do almost anything other times he is anxious and agitated and other times he is depressed. He says that these moods will shift up and down on the same day. Sometimes he can see a trigger but quite often there is no trigger. At this point his rent is so high that when he finishes that he has $100 for utilities and food and he has gotten behind and this led him to feel hopeless and depressed. He has not worked in about 10 years and is on disability. He says his only socialization is when he goes over the [facility] [place] and talks to a counselor there that he has very few supports and no contact with his family. He says the [facility] is trying to help him find a smaller cheaper place to live." Hospital course: Upon admission to the unit patient was directable and agreeable to commence treatment and signed adult voluntary form.. Patient got along well with other patients on the unit and followed unit protocol. Patient was compliant with the medications and denied any side effects throughout hospital course. Patient was continued on Cymbalta and this was increased to 90 mg daily for depression, clonidine 0.1 mg twice daily for anxiety. Patient is also on an LUNA that is due next week. Patient spoke of his stressors and engaged in therapy both group and individual. Patient was also seen by medical team for history and physical exam. Throughout the course of the hospitalization patient gradually improved with regards to mood, anxiety, sleep and returned back to their baseline level of functioning. On the day of discharge patient denied any suicidal or homicidal ideations intent or plan denied any auditory or visual hallucinations. The patient denied any access to guns or weapons. Patient denied any paranoia and did not endorse any delusions. Patient does not have a significant history of substance abuse and was counseled on abstaining from all substances including alcohol and marijuana. Patient was also counseled on the medications and need for regular compliance and was encouraged to follow-up with their outpatient appointment for mental health and also for primary care. Patient to be discharged home alone and will follow-up with [facility]. Mental status exam: General Appearance: Patient appears to be stated age is alert, pleasant, and cooperative. Patient is in no acute distress and has fair hygiene and grooming Behavior: Patient is calmly seated without any agitated behavior. Speech: Patient's speech is fluent and nonpressured. Mood/Affect: Patient reports their mood is "good", affect is congruent and constricted. Suicidality/Homicidality: Patient denies having any suicidal or homicidal ideation intent or plan. Perceptions: Patient denies any auditory or visual hallucinations. Though content/process: There is no evidence of any delusional thought content and thought process is linear and goal-directed. Memory and concentration: AOX3, grossly intact for the purposes of this session. Can spell "WORLD" backwards correctly. Judgment and insight: Fair Impression: Bipolar disorder Autism spectrum disorder Social anxiety disorder Plan: -Continue with discharge today as patient has improved and stabilized psychiatrically and is not currently an imminent threat to themself and/or other s. -Continue medications: Cymbalta 90 mg daily, clonidine 0.1 mg twice daily, Risperdal Uzedy 100 mg subcutaneous next due on 11/04/2024 -Patient was counseled on the need for medication compliance and appropriate follow-up at mental health and also primary care for medical issues. Patient verbalized understanding and agreed. -Social work to help coordinate patients discharge today. also to ensure safe home environment that guns/weapons are either removed from the home or locked away. Social work also to arrange for patients follow up appointments with [facility] for psychiatric care along with follow up with primary care provider. -Patient counseled on abstaining from recreational drugs and marijuana and alcohol. Was informed/educated on the adverse effects on their physical and mental health. Patient verbally agreed and understood. -Patient was instructed to return to the hospital or seek immediate medical care if their psychiatric or medical symptoms do worsen or reoccur. Abnormal Labs 10/24/24 10/25/24 09:52 07:22 MPV 12.5 H U Marijuana (THC) Screen Detected H Allergies Allergy/AdvReac Type Severity Reaction Status Date / Time No Known Allergies Allergy Verified 10/24/24 10:19 Vital Signs Temp 97.4 F L 10/28/24 08:25 Pulse 83 10/28/24 08:25 Resp 16 10/28/24 08:25 BP 127/79 10/28/24 08:25 Pulse Ox 98 10/28/24 08:25 FiO2 Patient Condition at Discharge: Stable Plan - Discharge Summary Discharge Rx Participant: No New Discharge Prescriptions: New DULoxetine HCL [Cymbalta] 90 mg PO DAILY 30 Days #90 cap Continue cloNIDine HCL [cloNIDine HCL ER] 0.1 mg PO DAILY risperiDONE [Uzedy] 100 mg SQ Q28D Discontinued DULoxetine HCL [Cymbalta] 60 mg PO DAILY 30 Days #30 cap Discharge Medication List cloNIDine HCL [cloNIDine HCL ER] 0.1 mg PO DAILY 10/24/24 [History] risperiDONE [Uzedy] 100 mg SQ Q28D 10/24/24 [History] DULoxetine HCL [Cymbalta] 90 mg PO DAILY 30 Days #90 cap 10/28/24 [Rx] Follow up Appointment(s)/Referral(s): [facility]Other[facility] - [address] [facility] [facility] [Outside] - 10/30/24 12:00 pm (10/30/2024 12:00PM - 1:30PM RHONDA RICKETTS 11/04/2024 1:30PM - 1:45PM Generic Nurse 11/11/2024 1:30PM - 2:00PM MECHE Guthrie Patient Instructions/Handouts: Depression (DC), Schizoaffective Disorder (DC) Activity/Diet/Wound Care/Special Instructions: Avoid the use of street drugs and alcohol. Take all medications as prescribed. When you are in need of refills on your medications, please contact your medical provider and/or outpatient psychiatrist/provider to have this done. Please go to your scheduled outpatient appointment for aftercare treatment. If symptoms return or become worse, call the crisis line at and/or go to the nearest emergency room for evaluation. National Suicide Hotline [address] [facility] confidentiality statement: "The information contained in this communication, including attachments, is confidential, may be privileged, and is intended only for the use of the named recipient(s). Unauthorized use, disclosure, forwarding or copying is strictly prohibited and may be unlawful. If you have received this communication in error, please notify me IMMEDIATELY at the phone number or pager listed above. Discharge Disposition: HOME SELF-CARE
[2024-11-04] MEDS ORDERED: risperiDONE 100 MG/0.28 ML SYR (NO COST) SQ SCH (09:00)
== END 2024-10-28 13:50 | disposition home or self-care (01) | DRG 753 ==
LOC: EC 07:41 → 3MHU 11:36
PROVIDERS: ADMIT Psychiatry & Neurology Psychiatry; ATTEND Psychiatry & Neurology Psychiatry
DX: F31.9 Bipolar disorder, unspecified (principal); F12.10 Cannabis abuse, uncomplicated; F34.0 Cyclothymic disorder; F40.10 Social phobia, unspecified; F84.0 Autistic disorder; L40.0 Psoriasis vulgaris; R45.851 Suicidal ideations; Z79.899 Other long term (current) drug therapy; Z87.891 Personal history of nicotine dependence; Z71.51 Drug abuse counseling and surveillance of drug abuser; Z60.2 Problems related to living alone; Z28.310 Unvaccinated for COVID-19; Z28.21 Immunization not carried out because of patient refusal
CPT/HCPCS: 80053; 80306; 81003; 82075; 83036; 84443; 85025; 87636; 99285

== ENCOUNTER 2024-11-04 09:42 | Inpatient (IN) | payer MEDICAID, MEDICARE, OTHER ==
--- NOTE | 2024-11-04 11:00 | ED ---
General Adult HPI - General Chief complaint: Psychiatric Symptoms Stated complaint: mental health Time Seen by Provider: 11/04/24 10:00 Source: patient, RN notes reviewed, old records reviewed Mode of arrival: ambulatory Limitations: no limitations - History of Present Illness Initial comments: Patient is a 34-year-old male who presents emergency department for suicidal ideations. Has a history of psychiatric illness and suicidal ideations. No specific plan. No homicidal ideation, intent, plans. No hallucinations. No other acute complaints. Follows up with [facility] outpatient. States he has been under more stress lately and attributes this is the cause of his symptoms that have gotten worse. Wants to be evaluated by psychiatry. - Related Data Home Medications Medication Instructions Recorded Confirmed cloNIDine HCL [cloNIDine HCL ER] 0.1 mg PO DAILY 10/24/24 11/04/24 risperiDONE [Uzedy] 100 mg SQ Q28D 10/24/24 11/04/24 Previous Rx's Medication Instructions Recorded DULoxetine HCL [Cymbalta] 90 mg PO DAILY 30 Days #90 cap 10/28/24 Allergies Allergy/AdvReac Type Severity Reaction Status Date / Time No Known Allergies Allergy Verified 11/04/24 10:38 Review of Systems ROS Statement: Those systems with pertinent positive or pertinent negative responses have been documented in the HPI. Review of Systems: CONST: Denies fever EYES: Denies blurry vision ENT: Denies nasal congestion C/V: Denies Chest pain RESP: Denies shortness of breath GI: Denies abdominal pain : Denies dysuria SKIN: Denies rash. MSK: Denies joint pain. NEURO: Denies headache ROS Other: All systems not noted in ROS Statement are negative. Past Medical History Past Medical History: No Reported History Additional Past Medical History / Comment(s): autism, psoriasis History of Any Multi-Drug Resistant Organisms: None Reported Past Surgical History: No Surgical Hx Reported Past Anesthesia/Blood Transfusion Reactions: No Reported Reaction Past Psychological History: Anxiety, Depression Smoking Status: Former smoker Past Alcohol Use History: Occasional Past Drug Use History: Marijuana - Past Family History Mother Additional Family Medical History / Comment(s): Mother is alive at age 60 with history of bipolar, Crohn's disease Father Family Medical History: Myocardial Infarction ([place]) Additional Family Medical History / Comment(s): Father is alive at age 55 with history of 2 myocardial infarctions. Sister(s) Additional Family Medical History / Comment(s): He has one sister with no major medical problems. General Exam - General Exam Comments Initial Comments: General: Appears in no acute distress. HEAD: Normal with no signs of head trauma. EYES: EOMI. ENT: Hearing grossly intact. RESPIRATORY: No respiratory distress. C/V: Regular rate and rhythm. ABD: Abdomen is nondistended. EXT: No obvious deformity. SKIN: No rashes or lesions observed on exposed skin. NEURO: Alert and oriented. Limitations: no limitations Course Vital Signs 11/04/24 09:45 Temperature 97.8 F Pulse Rate 62 Respiratory 18 Rate Blood Pressure 116/70 O2 Sat by Pulse 98 Oximetry Medical Decision Making - Medical Decision Making Was pt. sent in by a medical professional or institution ([facility], PLAN NURSE, urgent care, hospital, or longterm...) When possible be specific @ -No Did you speak to anyone other than the patient for history (EMS, parent, family, police, friend...)? What history was obtained from this source @ -No Did you review nursing and triage notes (agree or disagree)? Why? @ -I reviewed and agree with nursing and triage notes Were old charts reviewed (outside hosp., previous admission, EMS record, old EKG, old radiological studies, urgent care reports/EKG's, longterm records)? Report findings @ -No old charts were reviewed Differential Diagnosis (chest pain, altered mental status, abdominal pain women, abdominal pain men, vaginal bleeding, weakness, fever, dyspnea, syncope, headache, dizziness, GI bleed, back pain, seizure, CVA, palpatations, mental health, musculoskeletal)? @ -Differential Mental Health Depression, anxiety, bipolar, psychosis, schizophrenia, borderline personality, situational depression, adjustment disorder, behavioral disorder, brain tumor, malingering, substance abuse, encephalopathy, medication reaction, dementia, hypothyroidism, degenerative neurologic disorder, lupus.... This is not meant to be all-inclusive list EKG interpreted by me (3pts min.). @ -None none X-rays interpreted by me (1pt min.). @ -None done CT interpreted by me (1pt min.). @ -None done U/S interpreted by me (1pt. min.). @ -None done What testing was considered but not performed or refused? (CT, X-rays, U/S, labs)? Why? @ -None What meds were considered but not given or refused? Why? @ -None Did you discuss the management of the patient with other professionals (professionals i.e. , PA, PLAN NURSE, lab, RT, psych nurse, social work therapist, teacher asst, teacher, military source operations officer, case operator)? Give summary @ -EPS notified the consult Was smoking cessation discussed for >3mins.? @ -No Was critical care preformed (if so, how long)? @ -No Were there social determinants of health that impacted care today? How? (Homelessness, low income, unemployed, alcoholism, drug addiction, transportation, low edu. Level, literacy, decrease access to med. care, care home, rehab)? @ -No Was there de-escalation of care discussed even if they declined (Discuss DNR or withdrawal of care, Hospice)? DNR status @ -No What co-morbidities impacted this encounter? (DM, HTN, Smoking, COPD, CAD, Cancer, CVA, ARF, Chemo, Hep., AIDS, mental health diagnosis, sleep apnea, morbid obesity)? @ -None Was patient admitted / discharged? Hospital course, mention meds given and route, prescriptions, significant lab abnormalities, going to OR and other pertinent info. @ -Based on patient's presentation and physical exam, presents for psychiatric evaluation. Has been having suicidal ideations for weeks but worse over the last few days. Suicide precautions ordered. BAT is 0. UDS is pending. Vitals are within acceptable limits. At this time, patient is medically cleared for evaluation by psychiatry. D isposition pending psychiatric evaluation. EPS notified of the consult. EPS determined that patient does meet inpatient psychiatric admission criteria. Patient admitted in stable condition. Undiagnosed new problem with uncertain prognosis? @ -No Drug Therapy requiring intensive monitoring for toxicity (Heparin, Nitro, Insulin, Cardizem)? @ -No Were any procedures done? @ -No Diagnosis/symptom? @ -Suicidal ideation Acute, or Chronic, or Acute on Chronic? @ -Acute Uncomplicated (without systemic symptoms) or Complicated (systemic symptoms)? @ -Complicated Side effects of treatment? @ -None Exacerbation, Progression, or Severe Exacerbation] @ -No Poses a threat to life or bodily function? @ -Potentially, yes - Lab Data Lab Results 06/17/25 Range/Units 10:27 Urine Opiates Screen Not Detected (NotDetected) Ur Oxycodone Screen Not Detected (NotDetected) Urine Methadone Screen Not Detected (NotDetected) Ur Barbiturates Screen Not Detected (NotDetected) U Tricyclic Antidepress Not Detected (NotDetected) Ur Phencyclidine Scrn Not Detected (NotDetected) Ur Amphetamines Screen Not Detected (NotDetected) U Methamphetamines Scrn Not Detected (NotDetected) U Benzodiazepines Scrn Not Detected (NotDetected) Urine Cocaine Screen Not Detected (NotDetected) U Marijuana (THC) Screen Detected H (NotDetected) Disposition Clinical Impression: Suicidal ideations Disposition: TRANSFER TO PSYCH HOSP/UNIT Condition: Stable Referrals: None,Stated [Primary Care Provider] - 1-2 days
[2024-11-04 11:01] LABS: Amphetamine Screen,Urine Not Detected (NotDetected); Benzodiazepines Screen,Urine Not Detected (NotDetected); Cocaine Screen,Urine Not Detected (NotDetected); Opiate Screen,Urine Not Detected (NotDetected); Phencyclidine Screen,Urine Not Detected (NotDetected); Tricyclic Antidepressant,Urine Not Detected (NotDetected); Urn Cannabinoid Scrn Detected (NotDetected)
[2024-11-04 11:02] LABS: Barbiturate Screen,Urine Not Detected (NotDetected); Methadone Screen, Urine Not Detected (NotDetected); Oxycodone Screen, Urine Not Detected (NotDetected)
[2024-11-04] MEDS ORDERED: LORazepam 1 MG/0.5 ML VIAL IM PRN (15:07)
[2024-11-04] MEDS ORDERED: MAGNESIUM HYDROXIDE 2,400 MG/30 ML CUP PO PRN (15:07)
[2024-11-04] MEDS ORDERED: HALOPERIDOL LACTATE 5 MG/ML 1 ML VIAL IM PRN (15:07)
[2024-11-04] MEDS ORDERED: MAG HYDROX/AL HYDROX/SIMETH 355 ML BOTTLE PO PRN (15:07)
[2024-11-04] MEDS ORDERED: ACETAMINOPHEN TAB 325 MG TAB PO PRN (15:07)
[2024-11-04] MEDS ORDERED: IBUPROFEN 600 MG TAB PO PRN (15:07)
[2024-11-04] MEDS: LORazepam 1 MG TAB PO PRN (17:56)
[2024-11-04] MEDS ORDERED: LORazepam 2 MG/ML INJ IM PRN (18:00)
[2024-11-04 18:34] LABS: Appearance,Urine Clear (Clear); Bilirubin,Urine Negative (Negative); Blood,Urine Negative (Negative); Color,Urine Colorless; Glucose,Urine (UA) Negative (Negative); Ketones,Urine Negative (Negative); Leukocyte Esterase,Urine Negative (Negative); Nitrite,Urine Negative (Negative); Protein,Urine Negative (Negative); Specific Gravity,Urine 1.014 (1.001-1.035); Urobilinogen,Urine <2.0 mg/dL (<2.0)
[2024-11-04] MEDS: haloperidoL 5 MG TAB PO PRN (21:21)
--- NOTE | 2024-11-05 01:49 | P.MDCNMH ---
<Gretel Diaz - Last Filed: 11/05/24 01:49> History of Present Illness H&P Date: 11/04/24 Patient is a 34 year old male with autism, psoriasis, anxiety, depression, schizoid personality presented to the ED with suicidal ideation. He follows up with [facility] outpatient. He stated that he had been under more stress lately and attributes this to the cause of his symptoms and wanted to be evaluated by psychiatry. Patient seen today in medical consultation medical management. Denies fever, chills, shortness of breath, cough, chest pain, palpitations, abdominal pain, nausea, vomiting, hematuria, dysuria, hematochezia, melena, headache, slurred speech, numbness, tingling, dizziness, lightheadedness, blurred vision, double vision. ED documentation reviewed. In the ED patient was treated with lorazepam. Vitals T 97.8 F, UT 69 bpm, RR 20, BP 103/65, SpO2 95% on room air UA is unremarkable Urine tox is positive for marijuana SARS-CoV-2 negative Review of systems: Pertinent positives and negatives as discussed in HPI, a complete review of systems was performed and all other systems are negative. Physical examination: Vital signs reviewed General: nontoxic, no distress, appears at stated age Derm: warm, dry, intact Head: atraumatic, normocephalic, symmetric Eyes: EOMI, anicteric sclera Mouth: no lip lesion, mucus membranes moist Cardiovascular: S1 S2 reg, no murmur Lungs: CTA bilateral, no rhonchi, no rales, no accessory muscle use Abdominal: soft, non-tender to palpation Extremities: No cyanosis, clubbing, or pedal edema. Neuro: Alert, Oriented, Gross neurological examination did not reveal any focal deficits. Psych: well appearing, appropriate affect Assessment/Plan: Patient is a 34 year old male with autism, psoriasis, anxiety, depression, schizoid personality presented to the ED with suicidal ideation. Patient is admitted to [facility]. #. GI upset #. Constipation Continue Maalox 30 mL p.o. every 4 hours as needed and milk of magnesia 25 mg p.o. daily as needed #. Depression #. Suicidal ideation Currently on clonidine 0.1 mg p.o. daily, duloxetine 90 mg p.o. daily, Haldol 5 mg p.o. every 6 hours as needed, Haldol 5 mg IM every 6 hours as needed, Ativan 1 mg p.o. every 6 hours as needed, Ativan 1 mg IM every 6 hours as needed per psych team Tylenol and Motrin for pain management Monitor vital signs Obtain CBC, CMP Thank you for the consult. Please feel free to reach out in case of any questions. Dictation was produced using [employer] dictation software. please excuse any grammatical, word or spelling errors. Gretel Diaz MD PGY-1 IM Past Medical History Past Medical History: No Reported History Additional Past Medical History / Comment(s): autism, psoriasis History of Any Multi-Drug Resistant Organisms: None Reported Past Surgical History: No Surgical Hx Reported Past Anesthesia/Blood Transfusion Reactions: No Reported Reaction Smoking Status: Never smoker - Past Family History Mother Additional Family Medical History / Comment(s): Mother is alive at age 60 with history of bipolar, Crohn's disease Father Family Medical History: Myocardial Infarction ([place]) Additional Family Medical History / Comment(s): Father is alive at age 55 with history of 2 myocardial infarctions. Sister(s) Additional Family Medical History / Comment(s): He has one sister with no major medical problems. Medications and Allergies Home Medications Medication Instructions Recorded Confirmed Type cloNIDine HCL [cloNIDine HCL ER] 0.1 mg PO DAILY 10/24/24 11/04/24 History risperiDONE [Uzedy] 100 mg SQ Q28D 10/24/24 11/04/24 History DULoxetine HCL [Cymbalta] 90 mg PO DAILY 30 Days #90 cap 10/28/24 11/04/24 Rx Allergies Allergy/AdvReac Type Severity Reaction Status Date / Time No Known Allergies Allergy Verified 11/04/24 16:28 Physical Exam Vitals: Vital Signs Temp Pulse Pulse Resp BP BP Pulse Ox 11/04/24 15:40 97.8 F 69 20 103/65 95 11/04/24 15:17 98.7 F 78 18 116/74 98 11/04/24 09:45 97.8 F 62 18 116/70 98 Intake and Output 11/04/24 11/04/24 11/04/24 06:59 14:59 22:59 Other: Weight 95.254 kg 95.736 kg Cranial Nerve Examination - Cranial Nerves Cranial Nerve I- Olfactory: Intact Cranial Nerve II- Optic: Intact Cranial Nerve III- Oculomotor: Intact Cranial Nerve IV- Trochlear: Intact Cranial Nerve V- Trigeminal: Intact Cranial Nerve - Abducens: Intact Cranial Nerve VII- Facial: Intact Cranial Nerve VIII- Auditory: Intact Cranial Nerve IX- Glossopharyngeal: Intact Cranial Nerve X- Vagus: Intact Cranial Nerve XI- Accessory: Intact Cranial Nerve XII- Hypoglossal: Intact Results Labs: Abnormal Lab Results - Last 24 Hours (Table) 11/04/24 Range/Units 10:27 U Marijuana (THC) Screen Detected H (NotDetected) <Abram Escudero - Last Filed: 11/05/24 04:18> History of Present Illness Attestation : Patient seen and examined with medical and scientific illustrator. Agree with above assessment and plan Time spent : 35 min Physical Exam Vitals: Vital Signs Temp Pulse Pulse Resp BP BP Pulse Ox 11/04/24 21:00 97.4 F L 79 16 139/92 98 11/04/24 15:40 97.8 F 69 20 103/65 95 11/04/24 15:17 98.7 F 78 18 116/74 98 11/04/24 09:45 97.8 F 62 18 116/70 98 Intake and Output 11/04/24 11/04/24 11/05/24 14:59 22:59 06:59 Other: Weight 95.254 kg 95.736 kg Results Labs: Abnormal Lab Results - Last 24 Hours (Table) 11/04/24 Range/Units 10:27 U Marijuana (THC) Screen Detected H (NotDetected)
[2024-11-05 07:27] LABS: Basophils # (A) 0.05 10*3/uL (0.00-0.10); Basophils % (A) 0.7 %; Eosinophils # (A) 0.12 10*3/uL (0.04-0.35); Eosinophils % (A) 1.6 %; HCT 46.9 % (39.6-50.0); HGB 16.1 g/dL (13.0-17.0); Lymphocytes # (A) 1.61 10*3/uL (0.90-5.00); Lymphocytes % (A) 21.9 %; MCH 30.2 pg (27.0-32.0); MCHC 34.3 g/dL (32.0-37.0); Mean Platelet Volume 11.2 fL (9.5-12.2); Monocytes # (A) 0.57 10*3/uL (0.20-1.00); Monocytes % (A) 7.8 %; Neutrophils # (A) 4.97 10*3/uL (1.80-7.70); Neutrophils % (A) 67.7 %; Platelet Count 223 10*3/uL (140-440); RBC 5.33 10*6/uL (4.40-5.60); RDW 11.9 % (11.5-14.5); WBC 7.34 10*3/uL (4.50-10.00)
[2024-11-05 07:40] LABS: ALT 26 U/L (4-49); AST 24 U/L (17-59); African American GFR (CKD) >90 (>60 ml/min/1.73 sqM); Albumin 4.4 g/dL (3.5-5.0); Alkaline Phosphatase 56 U/L (38-126); Anion Gap 9 mmol/L; Blood Urea Nitrogen 18 mg/dL (9-20); Calcium 9.9 mg/dL (8.4-10.2); Carbon Dioxide 29 mmol/L (22-30); Chloride 100 mmol/L (98-107); Glucose 91 mg/dL (74-99); Non-African American GFR(CKD) >90 (>60 ml/min/1.73 sqM); Potassium 4.4 mmol/L (3.5-5.1); Sodium 138 mmol/L (137-145); Total Bilirubin 0.6 mg/dL (0.2-1.3)
[2024-11-05] MEDS: DULoxetine HCL 30 MG CAPSULE.DR PO SCH (08:38)
--- NOTE | 2024-11-05 12:06 | P.HP ---
Psychiatric H&P - . H&P Date: 11/05/24 History & Physical: Allergies Allergy/AdvReac Type Severity Reaction Status Date / Time No Known Allergies Allergy Verified 11/04/24 16:28 Vital Signs Temp 97.4 F L 11/04/24 21:00 Pulse 79 11/04/24 21:00 Resp 16 11/04/24 21:00 BP 139/92 11/04/24 21:00 Pulse Ox 98 11/04/24 21:00 FiO2 Intake & Output 11/04/24 11/05/24 11/05/24 18:59 06:59 18:59 Weight 95.736 kg Laboratory Last Values WBC 7.34 10*3/uL (4.50-10.00) 11/05/24 07:02 RBC 5.33 10*6/uL (4.40-5.60) 11/05/24 07:02 Hgb 16.1 g/dL (13.0-17.0) 11/05/24 07:02 Hct 46.9 % (39.6-50.0) 11/05/24 07:02 MCV 88.0 fL (80.0-97.0) 11/05/24 07:02 MCH 30.2 pg (27.0-32.0) 11/05/24 07:02 MCHC 34.3 g/dL (32.0-37.0) 11/05/24 07:02 Plt Count 223 10*3/uL (140-440) 11/05/24 07:02 MPV 11.2 fL (9.5-12.2) 11/05/24 07:02 Immature Gran % (Auto) 0.3 % 11/05/24 07:02 Neutrophils % 67.7 % 11/05/24 07:02 Lymphocytes % 21.9 % 11/05/24 07:02 Monocytes % 7.8 % 11/05/24 07:02 Eosinophils % 1.6 % 11/05/24 07:02 Basophils % 0.7 % 11/05/24 07:02 Immature Gran # 0.02 10*3/uL (0.00-0.04) 11/05/24 07:02 Neutrophils # 4.97 10*3/uL (1.80-7.70) 11/05/24 07:02 Lymphocytes # 1.61 10*3/uL (0.90-5.00) 11/05/24 07:02 Monocytes # 0.57 10*3/uL (0.20-1.00) 11/05/24 07:02 Eosinophils # 0.12 10*3/uL (0.04-0.35) 11/05/24 07:02 Basophils # 0.05 10*3/uL (0.00-0.10) 11/05/24 07:02 Sodium 138 mmol/L (137-145) 11/05/24 07:02 Potassium 4.4 mmol/L (3.5-5.1) 11/05/24 07:02 Chloride 100 mmol/L (98-107) 11/05/24 07:02 Carbon Dioxide 29 mmol/L (22-30) 11/05/24 07:02 Anion Gap 9 mmol/L 11/05/24 07:02 BUN 18 mg/dL (9-20) 11/05/24 07:02 Creatinine 0.94 mg/dL (0.66-1.25) 11/05/24 07:02 Est GFR (CKD-EPI)AfAm >90 (>60 ml/min/1.73 sqM) 11/05/24 07:02 Est GFR (CKD-EPI)NonAf >90 (>60 ml/min/1.73 sqM) 11/05/24 07:02 Glucose 91 mg/dL (74-99) 11/05/24 07:[address] Glu mg/dL 111 mg/dL 11/05/24 07:02 Hemoglobin A1c 5.5 % (<=6.0) 11/05/24 07:02 Calcium 9.9 mg/dL (8.4-10.2) 11/05/24 07:02 Total Bilirubin 0.6 mg/dL (0.2-1.3) 11/05/24 07:02 AST 24 U/L (17-59) 11/05/24 07:02 ALT 26 U/L (4-49) 11/05/24 07:02 Alkaline Phosphatase 56 U/L (38-126) 11/05/24 07:02 Total Protein 7.0 g/dL (6.3-8.2) 11/05/24 07:02 Albumin 4.4 g/dL (3.5-5.0) 11/05/24 07:02 TSH 2.340 mIU/L (0.465-4.680) 11/05/24 07:02 Urine Color Colorless 11/04/24 10:27 Urine Appearance Clear (Clear) 11/04/24 10:27 Urine pH 8.0 (5.0-8.0) 11/04/24 10:27 Ur Specific [place] 1.014 (1.001-1.035) 11/04/24 10:27 Urine Protein Negative (Negative) 11/04/24 10:27 Urine Glucose (UA) Negative (Negative) 11/04/24 10:27 Urine Ketones Negative (Negative) 11/04/24 10:27 Urine Blood Negative (Negative) 11/04/24 10:27 Urine Nitrite Negative (Negative) 11/04/24 10:27 Urine Bilirubin Negative (Negative) 11/04/24 10:27 Urine Urobilinogen <2.0 mg/dL (<2.0) 11/04/24 10:27 Ur Leukocyte Esterase Negative (Negative) 11/04/24 10:27 Urine Opiates Screen Not Detected (NotDetected) 11/04/24 10:27 Ur Oxycodone Screen Not Detected (NotDetected) 11/04/24 10:27 Urine Methadone Screen Not Detected (NotDetected) 11/04/24 10:27 Ur Barbiturates Screen Not Detected (NotDetected) 11/04/24 10:27 U Tricyclic Antidepress Not Detected (NotDetected) 11/04/24 10:27 Ur Phencyclidine Scrn Not Detected (NotDetected) 11/04/24 10:27 Ur Amphetamines Screen Not Detected (NotDetected) 11/04/24 10:27 U Methamphetamines Scrn Not Detected (NotDetected) 11/04/24 10:27 U Benzodiazepines Scrn Not Detected (NotDetected) 11/04/24 10:27 Urine Cocaine Screen Not Detected (NotDetected) 11/04/24 10:27 U Marijuana (THC) Screen Detected (NotDetected) H 11/04/24 10:27 SARS-CoV-2 (PCR) Not Detected (Not Detectd) 11/04/24 14:06 11/05/24 11:50 IDENTIFYING DATA: Patient is a 34-year-old male with history of autism, living independently CHIEF COMPLAINT: SI HPI: Patient presented to the hospital with suicidal ideations. Per EPS, "Patient presented to ER related to suicidal ideation without plan. Patient assessed in ER27 from [id number]. Patient verbalizes that he feels like he is not stable on his medications. Patient verbalizes that he is constantly worrying about everything and verbalizes increased sadness, hopelessness, and suicidal ideations. Patient verbalizes that he seen [facility] today, refused his Uzedy injection stating he does not feel like it works well for him, and stated [facility] told him to come to ER for evaluation. Patient next [facility] appt is scheduled for at 1330. Patient verbalizes he feels like he needs a medication change to manage his current thoughts. Patient verbalizes suicidal ideation with no current plan. Patient expresses that he is trying hard not to develop a plan or harm himself, but feels like he will harm himself if something does not change. Patient verbalizes history of suicide attempt by cutting approx 10 years ago. Patient denies homicidal ideations. Patient denies auditory and visual hallucinations. Patient verbalizes feeling paranoid at times, but states that he does not think that it affects his daily living. Patient verbalizes poor appetite and poor sleep. Patient verbalizes that he has no hobbies, does not have anything to live for, or to look forward to in life. Patient appears sad, flat affect, and hopeless. Patient verbalizes occasional alcohol use, less than weekly, with 3-4 drinks when he does. Patient unsure on last drink. Patient verbalizes occasional marijuana use, about 1-2x/week. Patient denies tobacco use. Patient verbalizes legal hx: "probation years ago", but denies anything current or pending." Patient seen and evaluated on the unit and was agreeable with speaking to comic writer in his room. Patient states the medications not working for him and he is interested in changing them. He states he has been on the current cocktail of medications for 3.5 months and is still struggling with depressive symptoms. He reports sleep and appetite changes, poor concentration, anhedonia and SI, no plan or intent. He reports his living situation is a trigger in addition to financial stressors however he is working with his enrollment services vice president on moving. Patient denies any homicidal ideations intent or plan. At this time patient denies any auditory or visual hallucinations. Patient denies any flight of ideas racing thoughts and increased in goal directed behavior. Patient admits to using cannabis occasionally and vaping daily. PAST PSYCHIATRIC HISTORY: Patient has a history of bipolar disorder and autism spectrum disorder. Patient is currently on risperdal uzedy 100 mg that was due on 11/04, cymbalta 90 mg daily and clonidine 0.1 mg daily. He has tried seroquel, prozac, zoloft, trileptal previously. Patient was last at this facility earlier this month from 10/24-10/28. Patient follows with [facility]. Patient has a history of suicide attempt via cuttinh PMH: as per ER note ALLERGIES: as per EMR SUBSTANCE USE HISTORY: As per HPI FAMILY PSYCHIATRIC/SUBSTANCE USE HISTORY: patient states his mother has bipolar disorder SOCIAL HISTORY: Patient is single and has no children. He lives independently and is on SSI. He completed high school. MENTAL STATUS EXAM: General Appearance: Patient appears to be stated age is alert, directable, and attempts to cooperate. Patient appears to have fair hygiene and grooming. Behavior: Patient is seated without any agitated behavior. Speech: Patient's speech is fluent and nonpressured. Mood/Affect: Patient reports their mood is "depressed", affect is congruent and constricted. Suicidality/Homicidality: Patient denies having any homicidal ideation intent or plan. He reports suicidal ideations, no intent or plan Perceptions: Patient denies any visual hallucinations and denies any auditory hallucinations Though content/process: There is no evidence of any delusional thought content and thought process is linear and logical Memory and concentration: AOX3, grossly intact for the purposes of this session. Can spell "WORLD" backwards Judgment and insight: fair STRENGTHS/WEAKNESSES: strength is that patient is resilient. Weakness is that patient has poor judgment and poor living situation INTELLECT: Average IMPRESSIONS: Bipolar 1 disorder, current episode depressed r/o cyclothymic disorder Nicotine dependence Autism spectrum disorder PLAN: -Patient is admitted under voluntary status to MHU for stabilization of psychiatric symptoms and safety. Patient has signed adult voluntary form and and is placed in patient's chart. -Medications : Discontinue risperdal uzedy and start latuda 40 mg BID with meals, lithium 150 mg BID for mood stabilization, decrease cymbalta to 60 mg daily with a plan to taper off and discontinue clonidine 0.1 mg daily - Ativan and Haldol PRN for agitation/aggression -Patient was informed of the risks, benefits and side effects of the medication and patient verbally consented to taking the medications. Patient did sign med consent form and was placed in chart. Patient offered and accepted patient education sheet for psychotropic medications. -Internal Medicine consult to perform medical evaluation and physical. -NRT -nicotine patch -SW on board for discharge planning. Encourage patient to participate in groups to work on coping skills.
[2024-11-05] MEDS: LITHIUM CARBONATE 150 MG CAP PO SCH (12:12)
[2024-11-05 16:24] LABS: Chol/HDL Ratio 6.05 Ratio; LDL Cholesterol,Calculated 200.4 mg/dL (0.0-131.0)
[2024-11-05] MEDS: LURASIDONE 40 MG TAB PO SCH (17:48)
[2024-11-06] MEDS: DULoxetine HCL 60 MG CAPSULE.DR PO SCH (09:05)
--- NOTE | 2024-11-06 11:30 | P.PN ---
Progress Note - Text Progress Note Date: 11/06/24 Interval History: Patient was seen in his room and was directable and agreeable to speak with wr iter in the room. He reports experiencing drowsiness from the medications. He expresses an inability to leave his bed and a desire to sleep all day however not having restful sleep at night. Because of this he reports anxiety and depression worse today however he denied any suicidal ideations. He reports stability in terms of appetite. He has been attending groups. At this time patient denies any suicidal or homicidal ideations, intent or plan. Patient denies any auditory, visual hallucinations and denies any paranoia or delusions. Patient has been compliant with meds. Mental Status Exam: General Appearance: Patient appears to be stated age is alert, directable, and cooperative. Behavior: Patient is calmly seated without any agitated behavior. Speech: Patient's speech is fluent and nonpressured. Mood/Affect: Mood is "drowsy", affect is congruent and constricted. Suicidality/Homicidality: Patient denies having any suicidal or homicidal ideation intent or plan. Perceptions: Patient denies any visual hallucinations and denies any auditory hallucinations Though content/process: There is no evidence of any delusional thought content and thought process is linear and goal-directed. Memory and concentration: AOX3, grossly intact for the purposes of this session Judgment and insight: Improving mildly Assessment Bipolar 1 disorder, current episode depressed Rule out cyclothymic disorder Nicotine dependence Autism spectrum disorder Plan: -Patient continues to meet criteria for inpatient psychiatric admission for symptom stabilization and safety. Patient has signed adult voluntary form and medication consent and was placed in patient's chart. -Medications: Decrease Latuda to 20 mg twice daily with meals due to adverse effects, continue lithium 150 mg twice daily for mood stabilization, continue Cymbalta 60 mg daily for depression -When necessary Ativan and Haldol for agitation/aggression. -Labs: Lipid panel was elevated, will encourage lifestyle modifications and defer to PCP for recommendations. -NRT - nicotine patch -SW on board for discharge planning. Encouraged the patient to participate in milieu.
[2024-11-06] MEDS: LURASIDONE 20 MG TAB PO SCH (17:47)
--- NOTE | 2024-11-07 11:43 | P.PN ---
Progress Note - Text Progress Note Date: 11/07/24 Interval History: Patient was seen in the [facility] and was directable and agreeable to speak with verse writer in the office. He reports improvement in drowsiness, attended goalsetting this morning and group. He reports chronic difficulties with sleep, described as sleeping for only 3 hours at a time and not feeling rested in the morning. Patient was not amenable to starting any medications to assist with sleep however he was encouraged to consider if his sleep worsens. He reports moving to a different apartment in a few weeks. He states his current difficulties involve him not having items to use for cooking including pots and pans. He does have a bridge card however given the lack of resources he finds himself unable to properly prepare meals. He reports anxiety, excess worry about the future. He also reports anger/mood swings which she feels is related to his autism. At this time patient denies any suicidal or homicidal ideations, intent or plan. Patient denies any auditory, visual hallucinations and denies any paranoia or delusions. Patient denies any side effects from the medications and has been compliant with meds. Mental Status Exam: General Appearance: Patient appears to be stated age is alert, directable, and cooperative. Behavior: Patient is calmly seated without any agitated behavior. Speech: Patient's speech is fluent and nonpressured. Mood/Affect: Mood is improving mildly, affect is congruent and constricted. Suicidality/Homicidality: Patient denies having any suicidal or homicidal ideation intent or plan. Perceptions: Patient denies any visual hallucinations and denies any auditory hallucinations Though content/process: There is no evidence of any delusional thought content and thought process is linear and goal-directed. Memory and concentration: AOX3, grossly intact for the purposes of this session Judgment and insight: Improving mildly Assessment Bipolar 1 disorder, current episode depressed Rule out cyclothymic disorder Nicotine dependence Autism spectrum disorder Plan: -Patient continues to meet criteria for inpatient psychiatric admission for symptom stabilization and safety. Patient has signed adult voluntary form and medication consent and was placed in patient's chart. -Medications: Continue Latuda 20 mg twice daily with meals for bipolar depression, lithium 150 mg twice daily for mood stabilization, Cymbalta 60 mg daily for depression/anxiety -When necessary Ativan and Haldol for agitation/aggression. -Labs: Reviewed -NRT - nicotine patch -SW on board for discharge planning. Encouraged the patient to participate in milieu.
--- NOTE | 2024-11-08 13:30 | P.PN ---
Progress Note - Text Progress Note Date: 11/08/24 Dictation was produced using [employer] dictation software. Please excuse any grammatical, word or spelling errors. Interval history: Patient was seen in the hallway and was directable and agreeable to speak with the designer/writer in the office for psychiatric follow-up. The patient states that he is feeling alright today, states that his sleep was on and off last night, hard to stay a sleep, asked for prn which was helpful. It is reported that he slept 6 hours overnight. He admitted to good appetite. Mood is "okay." He admitted to moderate depression and anxiety, he rated both at 6-7/10, he denied any current SI/HI or self harm. He denied any current AVH, or paranoia, admitted to feeling safe in the unit. He has been compliant with his medication, denied any current side effects, denied any muscle stiffness, rigidity, abnormal movement, or drooling. He reported some drossiness at time. He has facial rash, which he reported to be due to psoriasis and he has it for a long time. He states that he is on disability for mental illness, and he follow up with [facility]. Patient was asking about Cymbalta and want to taper it down since it was one of his home medication. Patient was educated on keeping the current dose of medication giving his level of depression and anxiety. The patient reported that he was diagnosed with autism in the past. Mental Status Exam: General Appearance: Patient appears to be stated age is alert, directable, and cooperative. Behavior: Patient is calmly seated without any agitated behavior. Speech: Patient's speech is fluent and nonpressured. Mood/Affect: Mood is improving mildly, affect is congruent and constricted. Suicidality/Homicidality: Patient denies having any suicidal or homicidal ideation intent or plan. Perceptions: Patient denies any visual hallucinations and denies any auditory hallucinations Though content/process: There is no evidence of any delusional thought content and thought process is linear and goal-directed. Memory and concentration: AOX3, grossly intact for the purposes of this session Judgment and insight: Improving mildly Assessment Bipolar 1 disorder, current episode depressed Rule out cyclothymic disorder Nicotine dependence Autism spectrum disorder Assessment/Plan: Continue with current diagnosis. Patient continues to meet criteria for inpatient psychiatric admission for symptom stabilization and safety. Patient will be maintained on current psychotropic medication regimen which include Latuda 20 mg p.o. twice daily, lithium 150 mg p.o. twice daily, Cymbalta 60 mg p.o. daily. Monitor for medication compliance and for any psychotropic medication side effects, he denied any current muscle stiffness, rigidity, abnormal movement, or drooling. Will continue to monitor ongoing response to treatment. Encouraged participation in milieu.
--- NOTE | 2024-11-09 13:48 | P.PN ---
Progress Note - Text Progress Note Date: 11/09/24 Dictation was produced using [employer] dictation software. Please excuse any grammatical, word or spelling errors. Interval history: Patient was seen in the [facility] and was directable and agreeable to speak with the travel writer in the office for psychiatric follow-up. The patient states that he is feeling good today, states that he slept well last night. It is reported that patient slept at least 6 hours uninterrupted last night. States that depression and anxiety to be at the moderate side, he rated depression at 7/10, and anxiety at 8/10. He denied any current SI/HI or self harm, denied any AVH or paranoia. States that racing thoughts are on and off through out the day. He has been compliant with his medication, denied any current side effects, denied any muscle stiffness, rigidity, abnormal movement, or drooling. He reported some drossiness at time, however is getting better. He states that he is getting along well with everyone, he was seen attending the morning group and is planning on attending the afternoon group. States that he would like to get off the Cymbalta since it has not being helpful, and he does not want to continue using in the future. Mental Status Exam: General Appearance: Patient appears to be stated age is alert, directable, and cooperative. Behavior: Patient is calmly seated without any agitated behavior. Speech: Patient's speech is fluent and nonpressured. Mood/Affect: Mood is improving mildly, affect is congruent and constricted. Suicidality/Homicidality: Patient denies having any suicidal or homicidal ideation intent or plan. Perceptions: Patient denies any visual hallucinations and denies any auditory hallucinations Though content/process: There is no evidence of any delusional thought content and thought process is linear and goal-directed. Memory and concentration: AOX3, grossly intact for the purposes of this session Judgment and insight: Improving mildly Assessment Bipolar 1 disorder, current episode depressed Rule out cyclothymic disorder Nicotine dependence Autism spectrum disorder Assessment/Plan: Continue with current diagnosis. Patient continues to meet criteria for inpatient psychiatric admission for symptom stabilization and safety. Patient will be maintained on current psychotropic medication regimen which include Latuda 20 mg p.o. twice daily, lithium 150 mg p.o. twice daily, Cymbalta 60 mg p.o. daily for today, patient was fixated on tapering down Cymbalta since it has not been helpful, we will taper down Cymbalta to 30 mg p.o. daily starting tomorrow morning, may consider adding another antidepressant pending the patient progress and toleration. Monitor for medication compliance and for any psychotropic medication side effects, he denied any current muscle stiffness, rigidity, abnormal movement, or drooling. Will continue to monitor ongoing response to treatment. Encouraged participation in milieu.
[2024-11-10] MEDS: DULoxetine HCL 30 MG CAPSULE.DR PO SCH (08:12)
--- NOTE | 2024-11-10 12:35 | P.PN ---
Progress Note - Text Progress Note Date: 11/10/24 Interval History: Patient was seen in his room and was directable and agreeable to speak with wr iter in the office. Patient reports good sleep and appetite. He continues to express some drowsiness however no worsening in this. He denied any worsening in depression or anxiety despite decreasing the Cymbalta. His ultimate goal is to get off the Cymbalta and this will be tapered off in a few days. At this time patient denies any suicidal or homicidal ideations, intent or plan. Patient denies any auditory, visual hallucinations and denies any paranoia or delusions. Patient denies any side effects from the medications and has been compliant with meds. Mental Status Exam: General Appearance: Patient appears to be stated age is alert, directable, and cooperative. He has fair grooming and hygiene Behavior: Patient is calmly seated without any agitated behavior. Speech: Patient's speech is fluent and nonpressured. Mood/Affect: Mood is improving mildly, affect is congruent and constricted. Suicidality/Homicidality: Patient denies having any suicidal or homicidal ideation intent or plan. Perceptions: Patient denies any visual hallucinations and denies any auditory hallucinations Though content/process: There is no evidence of any delusional thought content and thought process is linear and goal-directed. Memory and concentration: AOX3, grossly intact for the purposes of this session Judgment and insight: Improving mildly Assessment Bipolar 1 disorder, current episode depressed Rule out cyclothymic disorder Autism spectrum disorder Nicotine dependence Plan: -Patient continues to meet criteria for inpatient psychiatric admission for symptom stabilization and safety. Patient has signed adult voluntary form and medication consent and was placed in patient's chart. -Medications: Continue Latuda 20 mg twice daily with food, lithium 150 mg twice daily for mood stabilization, Cymbalta 30 mg daily for depression/anxiety -When necessary Ativan and Haldol for agitation/aggression. -Labs: Reviewed, lithium level ordered for tomorrow morning -NRT - nicotine patch -SW on board for discharge planning. Encouraged the patient to participate in milieu. Anticipate discharge home alone tomorrow after lithium level
[2024-11-11 08:22] VITALS: BP 126/88; PULSE 83; RESP 18; TEMP 97.6
--- NOTE | 2024-11-11 12:51 | P.DS ---
Providers Date of admission: 11/04/24 15:05 Expected date of discharge: 11/11/24 Attending physician: Glenna Cordon MD Consults: 11/04/24 15:07 Consult Physician Routine Consulting Provider: Elvia Stevens Consult Reason/Comments: History and Physical, New Admission Do you want consulting provider notified?: Yes Primary care physician: Stated None - Discharge Diagnosis(es) (1) Bipolar disorder current episode depressed Status: Acute Priority: High (2) Autism spectrum disorder Status: Chronic Priority: Medium (3) Nicotine dependence Status: Acute Priority: Low Hospital Course: Admission HPI: Admission note was completed by writer producer "Patient presented to the hospital with suicidal ideations. Per EPS, "Patient presented to ER related to suicidal ideation without plan. Patient assessed in ER27 from [id number]. Patient verbalizes that he feels like he is not stable on his medications. Patient verbalizes that he is constantly worrying about everything and verbalizes increased sadness, hopelessness, and suicidal ideations. Patient verbalizes that he seen [facility] today, refused his Uzedy injection stating he does not feel like it works well for him, and stated [facility] told him to come to ER for evaluation. Patient next [facility] appt is scheduled for 11/11 at 1330. Patient verbalizes he feels like he needs a medication change to manage his current thoughts. Patient verbalizes suicidal ideation with no current plan. Patient expresses that he is trying hard not to develop a plan or harm himself, but feels like he will harm himself if something does not change. Patient verbalizes history of suicide attempt by cutting approx 10 years ago. Patient denies homicidal ideations. Patient denies auditory and visual hallucinations. Patient verbalizes feeling paranoid at times, but states that he does not think that it affects his daily living. Patient verbalizes poor appetite and poor sleep. Patient verbalizes that he has no hobbies, does not have anything to live for, or to look forward to in life. Patient appears sad, flat affect, and hopeless. Patient verbalizes occasional alcohol use, less than weekly, with 3-4 drinks when he does. Patient unsure on last drink. Patient verbalizes occasional marijuana use, about 1- 2x/week. Patient denies tobacco use. Patient verbalizes legal hx: "probation years ago", but denies anything current or pending." Patient seen and evaluated on the unit and was agreeable with speaking to writer producer in his room. Patient states the medications not working for him and he is interested in changing them. He states he has been on the current cocktail of medications for 3.5 months and is still struggling with depressive symptoms. He reports sleep and appetite changes, poor concentration, anhedonia and SI, no plan or intent. He reports his living situation is a trigger in addition to financial stressors however he is working with his inspector set up and lay out on moving. Patient denies any homicidal ideations intent or plan. At this time patient denies any auditory or visual hallucinations. Patient denies any flight of ideas racing thoughts and increased in goal directed behavior. Patient admits to using cannabis occasionally and vaping daily." Hospital course: Upon admission to the unit patient was directable and agreeable to commence treatment and signed adult voluntary form.. Patient got along well with other patients on the unit and followed unit protocol. Patient was compliant with the medications and denied any side effects throughout hospital course. Patient was started on Latuda 20 mg twice daily for bipolar depression, lithium 150 mg twice daily for mood stabilization, Cymbalta was titrated down to 30 mg daily and patient was given a limited prescription to eventually be tapered off this medication. Patient was previously on Risperdal Uzedy however this was discontinued due to ineffectiveness. [place]hall level returned at <0.2. Patient spoke of his stressors and engaged in therapy both group and individual. Patient was also seen by medical team for history and physical exam. Throughout the course of the hospitalization patient gradually improved with regards to mood, anxiety, sleep and returned back to their baseline level of functioning. On the day of discharge patient denied any suicidal or homicidal ideations intent or plan denied any auditory or visual hallucinations. The patient denied any access to guns or weapons. Patient denied any paranoia and did not endorse any delusions. Patient does not have a significant history of substance abuse and was counseled on abstaining from all substances including alcohol and marijuana Patient was also counseled on the medications and need for regular compliance and was encouraged to follow-up with their outpatient appointment for mental health and also for primary care. Patient to be discharged home alone and will follow-up with [facility]. Mental status exam: General Appearance: Patient appears to be stated age is alert, pleasant, and c ooperative. Patient is in no acute distress and has fair hygiene and grooming Behavior: Patient is calmly seated without any agitated behavior. Speech: Patient's speech is fluent and nonpressured. Mood/Affect: Patient reports their mood is "good", affect is congruent and euthymic. Suicidality/Homicidality: Patient denies having any suicidal or homicidal ideation intent or plan. Perceptions: Patient denies any auditory or visual hallucinations. Though content/process: There is no evidence of any delusional thought content and thought process is linear and goal-directed. Memory and concentration: AOX3, grossly intact for the purposes of this session. Can spell "WORLD" backwards correctly. Judgment and insight: Fair Impression: Bipolar 1 disorder, current episode depressed Rule out cyclothymic disorder Autism spectrum disorder Nicotine dependence Plan: -Continue with discharge today as patient has improved and stabilized psychiatrically and is not currently an imminent threat to themself and/or others. -Continue medications: Newhall 150 mg twice daily, Latuda 20 mg twice daily with food, Cymbalta 30 mg daily x5 more days then discontinue -Patient was counseled on the need for medication compliance and appropriate follow-up at mental health and also primary care for medical issues. Patient verbalized understanding and agreed. -Social work to help coordinate patients discharge today. also to ensure safe home environment that guns/weapons are either removed from the home or locked away. Social work also to arrange for patients follow up appointments with [facility] for psychiatric care along with follow up with primary care provider. -Patient counseled on abstaining from recreational drugs and marijuana and alcohol. Was informed/educated on the adverse effects on their physical and mental health. Patient verbally agreed and understood. -Patient was instructed to return to the hospital or seek immediate medical care if their psychiatric or medical symptoms do worsen or reoccur. Abnormal Labs 11/04/24 11/05/24 10:27 07:02 Cholesterol 271.00 H LDL Cholesterol, Calc 200.4 H U Marijuana (THC) Screen Detected H Allergies Allergy/AdvReac Type Severity Reaction Status Date / Time No Known Allergies Allergy Verified 11/04/24 16:28 Vital Signs Temp 97.6 F 11/11/24 08:22 Pulse 83 11/11/24 08:22 Resp 18 11/11/24 08:22 BP 126/88 11/11/24 08:22 Pulse Ox 97 11/11/24 08:22 FiO2 Patient Condition at Discharge: Stable Plan - Discharge Summary New Discharge Prescriptions: New DULoxetine HCL [Cymbalta] 30 mg PO DAILY 5 Days #5 cap Lurasidone [Latuda] 20 mg PO 0800,1800 30 Days #60 tab [place] Carbonate 150 mg PO BID 30 Days #60 cap Discontinued DULoxetine HCL [Cymbalta] 90 mg PO DAILY 30 Days #90 cap cloNIDine HCL [cloNIDine HCL ER] 0.1 mg PO DAILY risperiDONE [Uzedy] 100 mg SQ Q28D Discharge Medication List DULoxetine HCL [Cymbalta] 30 mg PO DAILY 5 Days #5 cap 11/11/24 [Rx] [place] Carbonate 150 mg PO BID 30 Days #60 cap 11/11/24 [Rx] Lurasidone [Latuda] 20 mg PO 0800,1800 30 Days #60 tab 11/11/24 [Rx] Follow up Appointment(s)/Referral(s): [facility], [facility] [Other] - 1 Week [facility] [Outside] - 11/11/24 12:30 pm (11/11/2024 12:30PM - 1:00PM RHONDA RICKETTS 11/13/2024 8:30AM - 9:30AM RHONDA RICKETTS 11/18/2024 10:00AM - 10:30AM MECHE MEJIA ) Patient Instructions/Handouts: Depression (DC), Schizoaffective Disorder (DC) Activity/Diet/Wound Care/Special Instructions: Avoid the use of street drugs and alcohol. Take all medications as prescribed. When you are in need of refills on your medications, please contact your medical provider and/or outpatient psychiatrist/provider to have this done. Please go to your scheduled outpatient appointment for aftercare treatment. If symptoms return or become worse, call the crisis line at and/or go to the nearest emergency room for evaluation. National Suicide Hotline [facility] [facility] confidentiality statement: "The information contained in this communication, including attachments, is confidential, may be privileged, and is intended only for the use of the named recipient(s). Unauthorized use, disclosure, forwarding or copying is strictly prohibited and may be unlawful. If you have received this communication in error, please notify me IMMEDIATELY at the phone number or pager listed above. Discharge Disposition: HOME SELF-CARE
== END 2024-11-11 11:32 | disposition home or self-care (01) | DRG 753 ==
LOC: EC 09:42 → 3MHU 15:05
PROVIDERS: ADMIT Psychiatry & Neurology Psychiatry; ATTEND Psychiatry & Neurology Psychiatry
DX: F31.30 Bipolar disorder, current episode depressed, mild or moderate severity, unspecified (principal); R45.851 Suicidal ideations; F84.0 Autistic disorder; F41.9 Anxiety disorder, unspecified; L40.9 Psoriasis, unspecified; K59.00 Constipation, unspecified; K30 Functional dyspepsia; F17.290 Nicotine dependence, other tobacco product, uncomplicated; Z79.899 Other long term (current) drug therapy; Z59.86 Financial insecurity; Z91.51 Personal history of suicidal behavior; Z71.51 Drug abuse counseling and surveillance of drug abuser
CPT/HCPCS: 80053; 80061; 80178; 80306; 81003; 82075; 83036; 84443; 85025; 87635; 99285

== ENCOUNTER 2024-11-13 20:11 | Emergency (ER) | payer MEDICAID, MEDICARE ==
--- NOTE | 2024-11-13 20:39 | ED ---
Psych HPI - General Source: patient, RN notes reviewed Mode of arrival: ambulatory Limitations: no limitations <Ze Johnson - Last Filed: 11/13/24 20:37> - General Source: patient, RN notes reviewed, old records reviewed <Thanh Crocker - Last Filed: 11/14/24 06:33> - General Stated Complaint: Psych Eval Time Seen by Provider: 11/13/24 20:30 - History of Present Illness Initial Comments: Quick note: This is a calm and cooperative 34-year-old male with history of autism and depression presenting for suicidal ideation x 1 month. Patient states his meds are not working, causing dehydration with ongoing anger and sadness. Patient states he spoke to his egg caser, and, with the mobile crisis unit who advised that he be seen for further evaluation. Patient states he has a rough plan but has not acted on it. Patient states he "needs the right meds". Denies HI, visual/auditory hallucinations. (Ze Johnson) 34-year-old male who presents emergency department complaining of suicidal ideation with nonspecific plans. Has a history of psychiatric illness. Is on medications and states that he feels like his new medications may be causing some of the suicidal ideations and not seem to be helping. He denies any homicidal ideations, intent, plans. Denies any hallucinations. Endorses occasional marijuana use but no alcohol or drug use otherwise. Presents for further evaluation at this time. Originally seen as a quick note. I evaluated the patient when he is placed in a room. (Thanh Crocker) - Related Data Previous Rx's Medication Instructions Recorded DULoxetine HCL [Cymbalta] 30 mg PO DAILY 5 Days #5 cap 11/11/24 [place] Carbonate 150 mg PO BID 30 Days #60 cap 11/11/24 Lurasidone [Latuda] 20 mg PO 0800,1800 30 Days #60 tab 11/11/24 Allergies Allergy/AdvReac Type Severity Reaction Status Date / Time No Known Allergies Allergy Verified 11/13/24 22:13 Review of Systems ROS Other: All systems not noted in ROS Statement are negative. <Ze Johnson - Last Filed: 11/13/24 20:37> ROS Other: All systems not noted in ROS Statement are negative. <Thanh Crocker - Last Filed: 11/14/24 06:33> ROS Statement: Those systems with pertinent positive or pertinent negative responses have been documented in the HPI. Review of Systems: CONST: Denies fever EYES: Denies blurry vision ENT: Denies nasal congestion C/V: Denies Chest pain RESP: Denies shortness of breath GI: Denies abdominal pain : Denies dysuria SKIN: Denies rash. MSK: Denies joint pain. NEURO: Denies headache (Thanh Crocker) Past Medical History Past Medical History: No Reported History Additional Past Medical History / Comment(s): autism, psoriasis History of Any Multi-Drug Resistant Organisms: None Reported Past Surgical History: No Surgical Hx Reported Past Anesthesia/Blood Transfusion Reactions: No Reported Reaction Smoking Status: Never smoker - Past Family History Mother Additional Family Medical History / Comment(s): Mother is alive at age 60 with history of bipolar, Crohn's disease Father Family Medical History: Myocardial Infarction ([place]) Additional Family Medical History / Comment(s): Father is alive at age 55 with history of 2 myocardial infarctions. Sister(s) Additional Family Medical History / Comment(s): He has one sister with no major medical problems. <Ze Johnson - Last Filed: 11/13/24 20:37> General Exam <Ze Johnson - Last Filed: 11/13/24 20:37> <Thanh Crocker - Last Filed: 11/14/24 06:33> - General Exam Comments Initial Comments: Visual Physical Exam Vital signs reviewed General: Well-appearing, nontoxic, no acute distress. Head: Normocephalic, atraumatic Eyes: PERRLA, EOMI ENT: Airway patent Chest: Nonlabored breathing Skin: No visual rash, normal skin tone Neuro: Alert and oriented 3 Musculoskeletal: No gross abnormalities (Ze Johnson) General: Appears in no acute distress. HEAD: Normal with no signs of head trauma. EYES: EOMI. ENT: Hearing grossly intact. RESPIRATORY: No respiratory distress. C/V: Regular rate and rhythm. ABD: Abdomen is nondistended. EXT: No obvious deformity. SKIN: No rashes or lesions observed on exposed skin. NEURO: Alert and oriented. (Thanh Crocker) Course Vital Signs 11/13/24 11/14/24 22:08 01:32 Temperature 98 F 98.3 F Pulse Rate 69 76 Respiratory 18 18 Rate Blood Pressure 114/71 119/70 O2 Sat by Pulse 96 99 Oximetry Medical Decision Making <Ze Johnson - Last Filed: 11/13/24 20:37> <Thanh Crocker - Last Filed: 11/14/24 06:33> - Medical Decision Making I completed the quick note portion of this chart signed CARLOS Jiménez (Ze Johnson) Was pt. sent in by a medical professional or institution (, AMERICO, CAVALRY OFFICER, urgent care, hospital, or long-term...) When possible be specific @ -No Did you speak to anyone other than the patient for history (EMS, parent, family, police, friend...)? What history was obtained from this source @ -No Did you review nursing and triage notes (agree or disagree)? Why? @ -I reviewed and agree with nursing and triage notes Were old charts reviewed (outside hosp., previous admission, EMS record, old EKG, old radiological studies, urgent care reports/EKG's, long-term records)? Report findings @ -No old charts were reviewed Differential Diagnosis (chest pain, altered mental status, abdominal pain women, abdominal pain men, vaginal bleeding, weakness, fever, dyspnea, syncope, headache, dizziness, GI bleed, back pain, seizure, CVA, palpatations, mental health, musculoskeletal)? @ -Differential Mental Health Depression, anxiety, bipolar, psychosis, schizophrenia, borderline personality, situational depression, adjustment disorder, behavioral disorder, brain tumor, malingering, substance abuse, encephalopathy, medication reaction, dementia, hypothyroidism, degenerative neurologic disorder, lupus.... This is not meant to be all-inclusive list EKG interpreted by me (3pts min.). @ -None done X-rays interpreted by me (1pt min.). @ -None done CT interpreted by me (1pt min.). @ -None done U/S interpreted by me (1pt. min.). @ -None done What testing was considered but not performed or refused? (CT, X-rays, U/S, labs)? Why? @ -None What meds were considered but not given or refused? Why? @ -None Did you discuss the management of the patient with other professionals (professionals i.e. , AMERICO, CAVALRY OFFICER, lab, RT, psych nurse, medical social worker, pulp piler, teacher, aviation safety officer, egg caser)? Give summary @ -No Was smoking cessation discussed for >3mins.? @ -No Was critical care preformed (if so, how long)? @ -No Were there social determinants of health that impacted care today? How? (Homelessness, low income, unemployed, alcoholism, drug addiction, transportation, low edu. Level, literacy, decrease access to med. care, skilled nursing, rehab)? @ -No Was there de-escalation of care discussed even if they declined (Discuss DNR or withdrawal of care, Hospice)? DNR status @ -No What co-morbidities impacted this encounter? (DM, HTN, Smoking, COPD, CAD, Cance r, CVA, ARF, Chemo, Hep., AIDS, mental health diagnosis, sleep apnea, morbid obesity)? @ -None Was patient admitted / discharged? Hospital course, mention meds given and route, prescriptions, significant lab abnormalities, going to OR and other pertinent info. @ -Based on patient's presentation physical exam, presents emergency department complaining of suicidal ideation, that seems passive for multiple weeks. Suicide precautions ordered. Sitter ordered. BAT is 0. UDS is positive for benzodiazepines and marijuana. Vitals are within acceptable limits. At this time, patient is medically cleared for evaluation by psychiatry. Disposition pending psychiatric evaluation. EPS notified of the consult. Patient evaluated by EPS and determined that he does not meet inpatient criteria for psychiatric admission. He will be discharged home with a safety plan. I was in agreement this plan. Undiagnosed new problem with uncertain prognosis? @ -No Drug Therapy requiring intensive monitoring for toxicity (Heparin, Nitro, Insulin, Cardizem)? @ -No Were any procedures done? @ -No Diagnosis/symptom? @ -Encounter for psychiatric evaluation, passive suicidal ideation Acute, or Chronic, or Acute on Chronic? @ -Acute Uncomplicated (without systemic symptoms) or Complicated (systemic symptoms)? @ -Uncomplicated Side effects of treatment? @ -None Exacerbation, Progression, or Severe Exacerbation] @ -No Poses a threat to life or bodily function? @ -UnLikely at this time (Thanh Crocker) - Lab Data Lab Results 11/13/24 Range/Units 23:10 Urine Opiates Screen Not Detected (NotDetected) Ur Oxycodone Screen Not Detected (NotDetected) Urine Methadone Screen Not Detected (NotDetected) Ur Barbiturates Screen Not Detected (NotDetected) U Tricyclic Antidepress Not Detected (NotDetected) Ur Phencyclidine Scrn Not Detected (NotDetected) Ur Amphetamines Screen Not Detected (NotDetected) U Methamphetamines Scrn Not Detected (NotDetected) U Benzodiazepines Scrn Detected H (NotDetected) Urine Cocaine Screen Not Detected (NotDetected) U Marijuana (THC) Screen Detected H (NotDetected) Disposition <Ze Johnson - Last Filed: 11/13/24 20:37> Is patient prescribed a controlled substance at d/c from ED?: No Time of Disposition: 02:20 <Thanh Crocker - Last Filed: 11/14/24 06:33> Clinical Impression: Encounter for psychiatric assessment, Passive suicidal ideations Disposition: HOME SELF-CARE Condition: Good Additional Instructions: follow safety plan Referrals: Nonstaff,Physician [REFERRING] - 1-2 days
[2024-11-13 22:13] VITALS: RESP 18
[2024-11-13 23:42] LABS: Amphetamine Screen,Urine Not Detected (NotDetected); Barbiturate Screen,Urine Not Detected (NotDetected); Benzodiazepines Screen,Urine Detected (NotDetected); Cocaine Screen,Urine Not Detected (NotDetected); Methadone Screen, Urine Not Detected (NotDetected); Opiate Screen,Urine Not Detected (NotDetected); Oxycodone Screen, Urine Not Detected (NotDetected); Phencyclidine Screen,Urine Not Detected (NotDetected); Tricyclic Antidepressant,Urine Not Detected (NotDetected); Urn Cannabinoid Scrn Detected (NotDetected)
[2024-11-14 01:33] VITALS: BP 119/70; PULSE 76; TEMP 98.3
== END 2024-11-14 02:32 | disposition home or self-care (01) ==
LOC: EC 20:11
DX: R45.851 Suicidal ideations (principal); Z00.8 Encounter for other general examination
CPT/HCPCS: 80306; 82075; 99284

== ENCOUNTER 2024-11-30 12:34 | Emergency (ER) | payer MEDICARE ==
[2024-11-30 12:44] VITALS: RESP 17
--- NOTE | 2024-11-30 13:04 | ED ---
General Adult HPI - General Chief complaint: Psychiatric Symptoms Stated complaint: Mental health Time Seen by Provider: 11/30/24 12:51 Source: patient, RN notes reviewed Mode of arrival: ambulatory Limitations: no limitations - History of Present Illness Initial comments: Patient is a 34-year-old male present to the emergency department with depression and suicidal thoughts. Symptoms have been occurring over the past couple of weeks. Patient has many stressors. No plan. No homicidal thoughts. No alcohol use. Patient is not eating well. Patient is not sleeping well. - Related Data Previous Rx's Medication Instructions Recorded DULoxetine HCL [Cymbalta] 30 mg PO DAILY 5 Days #5 cap 11/11/24 [place] Carbonate 150 mg PO BID 30 Days #60 cap 11/11/24 Lurasidone [Latuda] 20 mg PO 0800,1800 30 Days #60 tab 11/11/24 Allergies Allergy/AdvReac Type Severity Reaction Status Date / Time No Known Allergies Allergy Verified 11/30/24 12:44 Review of Systems ROS Statement: Those systems with pertinent positive or pertinent negative responses have been documented in the HPI. ROS Other: All systems not noted in ROS Statement are negative. Constitutional: Denies: fever Eyes: Denies: eye pain ENT: Denies: ear pain Respiratory: Denies: dyspnea Cardiovascular: Denies: chest pain Past Medical History Past Medical History: No Reported History Additional Past Medical History / Comment(s): autism, psoriasis History of Any Multi-Drug Resistant Organisms: None Reported Past Surgical History: No Surgical Hx Reported Past Anesthesia/Blood Transfusion Reactions: No Reported Reaction Past Psychological History: Anxiety, Bipolar, Depression Smoking Status: Never smoker Past Alcohol Use History: Occasional Past Drug Use History: Marijuana - Past Family History Mother Additional Family Medical History / Comment(s): Mother is alive at age 60 with history of bipolar, Crohn's disease Father Family Medical History: Myocardial Infarction ([place]) Additional Family Medical History / Comment(s): Father is alive at age 55 with history of 2 myocardial infarctions. Sister(s) Additional Family Medical History / Comment(s): He has one sister with no major medical problems. General Exam Limitations: no limitations General appearance: alert, in no apparent distress Head exam: Present: normocephalic Eye exam: Present: normal appearance Neck exam: Present: normal inspection Respiratory exam: Present: normal lung sounds bilaterally Cardiovascular Exam: Present: regular rate, normal rhythm GI/Abdominal exam: Present: soft. Absent: tenderness Extremities exam: Present: normal inspection Neurological exam: Present: alert Psychiatric exam: Present: flat affect Skin exam: Present: normal color Course Vital Signs 11/30/24 12:42 Temperature 98.2 F Pulse Rate 64 Respiratory 17 Rate Blood Pressure 118/71 O2 Sat by Pulse 96 Oximetry Medical Decision Making - Medical Decision Making Was pt. sent in by a medical professional or institution (, PA, PROCESS SAFETY MANAGER, urgent care, hospital, or retirement...) When possible be specific @ -No Did you speak to anyone other than the patient for history (EMS, parent, family, police, friend...)? What history was obtained from this source @ -No Did you review nursing and triage notes (agree or disagree)? Why? @ -I reviewed and agree with nursing and triage notes Were old charts reviewed (outside hosp., previous admission, EMS record, old EKG, old radiological studies, urgent care reports/EKG's, retirement records)? Report findings @ -No old charts were reviewed Differential Diagnosis (chest pain, altered mental status, abdominal pain women, abdominal pain men, vaginal bleeding, weakness, fever, dyspnea, syncope, headache, dizziness, GI bleed, back pain, seizure, CVA, palpatations, mental health, musculoskeletal)? @ -Differential Mental Health Depression, anxiety, bipolar, psychosis, schizophrenia, borderline personality, situational depression, adjustment disorder, behavioral disorder, brain tumor, malingering, substance abuse, encephalopathy, medication reaction, dementia, hypothyroidism, degenerative neurologic disorder, lupus.... This is not meant to be all-inclusive list EKG interpreted by me (3pts min.). @ -As above X-rays interpreted by me (1pt min.). @ -None done CT interpreted by me (1pt min.). @ -None done U/S interpreted by me (1pt. min.). @ -None done What testing was considered but not performed or refused? (CT, X-rays, U/S, labs)? Why? @ -None What meds were considered but not given or refused? Why? @ -None Did you discuss the management of the patient with other professionals (professionals i.e. , PA, PROCESS SAFETY MANAGER, lab, RT, psych nurse, director social welfare, detective investigator, teacher, juvenile justice officer, ed case manager)? Give summary @ -Case discussed with psychiatric nurse with plans for discharge Was smoking cessation discussed for >3mins.? @ -No Was critical care preformed (if so, how long)? @ -No Were there social determinants of health that impacted care today? How? (Homelessness, low income, unemployed, alcoholism, drug addiction, transportation, low edu. Level, literacy, decrease access to med. care, retirement, rehab)? @ -No Was there de-escalation of care discussed even if they declined (Discuss DNR or withdrawal of care, Hospice)? DNR status @ -No What co-morbidities impacted this encounter? (DM, HTN, Smoking, COPD, CAD, Cancer, CVA, ARF, Chemo, Hep., AIDS, mental health diagnosis, sleep apnea, morbid obesity)? @ -History of depression Was patient admitted / discharged? Hospital course, mention meds given and route, prescriptions, significant lab abnormalities, going to OR and other pertinent info. @ -Patient presents with history of depression, similar symptoms. No suicidal plan. Patient seen and cleared by mental health. Patient will be discharged with mental health follow-up Undiagnosed new problem with uncertain prognosis? @ -No Drug Therapy requiring intensive monitoring for toxicity (Heparin, Nitro, Insulin, Cardizem)? @ -No Were any procedures done? @ -No Diagnosis/symptom? @ -Depression Acute, or Chronic, or Acute on Chronic? @ -Acute on chronic Uncomplicated (without systemic symptoms) or Complicated (systemic symptoms)? @ -Default Side effects of treatment? @ -No Exacerbation, Progression, or Severe Exacerbation? @ -No Poses a threat to life or bodily function? How? (Chest pain, [place], [place], pneumonia, PE, COPD, DKA, ARF, appy, cholecystitis, CVA, Diverticulitis, Homicidal, Suicidal, threat to staff... and all critical care pts) @ -No - Lab Data Lab Results 11/30/24 11/30/24 Range/Units 13:02 13:02 Urine Opiates Screen Not Detected (NotDetected) Ur Oxycodone Screen Not Detected (NotDetected) Urine Methadone Screen Not Detected (NotDetected) Ur Barbiturates Screen Not Detected (NotDetected) U Tricyclic Antidepress Not Detected (NotDetected) Ur Phencyclidine Scrn Not Detected (NotDetected) Ur Amphetamines Screen Not Detected (NotDetected) U Methamphetamines Scrn Not Detected (NotDetected) U Benzodiazepines Scrn Not Detected (NotDetected) [place] <0.2 mmol/L Urine Cocaine Screen Not Detected (NotDetected) U Marijuana (THC) Screen Detected H (NotDetected) Disposition Clinical Impression: Depression Disposition: HOME SELF-CARE Condition: Stable Instructions (If sedation given, give patient instructions): Depression (ED) Additional Instructions: Please do follow-up with primary care physician in the next couple of days for recheck. Please also follow-up with mental health services as directed. Return for thoughts of self-harm, worsening symptoms or other concerns. Is patient prescribed a controlled substance at d/c from ED?: No Referrals: Mary Echols [facility] [Family Provider] - 1-2 days Time of Disposition: 15:35
[2024-11-30 13:32] LABS: Barbiturate Screen,Urine Not Detected (NotDetected); Benzodiazepines Screen,Urine Not Detected (NotDetected); Opiate Screen,Urine Not Detected (NotDetected); Oxycodone Screen, Urine Not Detected (NotDetected); Phencyclidine Screen,Urine Not Detected (NotDetected); Tricyclic Antidepressant,Urine Not Detected (NotDetected); Urn Cannabinoid Scrn Detected (NotDetected)
[2024-11-30 15:42] VITALS: BP 118/74; PULSE 62; TEMP 98.1
== END 2024-11-30 15:42 | disposition home or self-care (01) ==
LOC: EC 12:34
DX: F32.A Depression, unspecified (principal)
CPT/HCPCS: 36415; 80178; 80306; 82075; 99285

== ENCOUNTER 2024-12-03 18:26 | Inpatient (IN) | payer MEDICAID, MEDICARE ==
--- NOTE | 2024-12-03 19:21 | ED ---
Psych HPI - General Chief Complaint: Psychiatric Symptoms Stated Complaint: Suicidal Time Seen by Provider: 12/03/24 18:56 Source: patient, RN notes reviewed Mode of arrival: ambulatory Limitations: no limitations - History of Present Illness Initial Comments: This is a 34-year-old male who presents to the emergency department for psychiatric evaluation. Patient reports an increase in depression with suicidal ideations, worsening over the last couple of weeks. States that he now has a plan to overdose on his medications. He does follow with [facility] and states that he is currently taking his psychiatric medication as prescribed. He does have a history of psychiatric hospitalizations. Denies any homicidal ideations. MD Complaint: suicidal ideation, feels depressed - Related Data Previous Rx's Medication Instructions Recorded [place] Carbonate 150 mg PO BID 30 Days #60 cap 11/11/24 Allergies Allergy/AdvReac Type Severity Reaction Status Date / Time No Known Allergies Allergy Verified 12/03/24 20:58 Review of Systems ROS Statement: Those systems with pertinent positive or pertinent negative responses have been documented in the HPI. ROS Other: All systems not noted in ROS Statement are negative. Past Medical History Past Medical History: No Reported History Additional Past Medical History / Comment(s): autism, psoriasis History of Any Multi-Drug Resistant Organisms: None Reported Past Surgical History: No Surgical Hx Reported Past Anesthesia/Blood Transfusion Reactions: No Reported Reaction Past Psychological History: Anxiety, Bipolar, Depression Smoking Status: Never smoker Past Alcohol Use History: Occasional Past Drug Use History: Marijuana - Past Family History Mother Additional Family Medical History / Comment(s): Mother is alive at age 60 with history of bipolar, Crohn's disease Father Family Medical History: Myocardial Infarction ([place]) Additional Family Medical History / Comment(s): Father is alive at age 55 with history of 2 myocardial infarctions. Sister(s) Additional Family Medical History / Comment(s): He has one sister with no major medical problems. General Exam Limitations: no limitations General appearance: alert, in no apparent distress Head exam: Present: atraumatic, normocephalic, normal inspection Respiratory exam: Present: normal lung sounds bilaterally. Absent: respiratory distress, wheezes, rales, rhonchi, stridor Cardiovascular Exam: Present: regular rate, normal rhythm Neurological exam: Present: alert, oriented X3, CN II-XII intact Psychiatric exam: Present: depressed, suicidal ideation. Absent: homicidal ideation Skin exam: Present: warm, dry, intact, normal color. Absent: rash Course Vital Signs 12/03/24 18:30 Temperature 98.0 F Pulse Rate 78 Respiratory 16 Rate Blood Pressure 130/73 O2 Sat by Pulse 96 Oximetry Medical Decision Making - Medical Decision Making This is a 34-year-old male who presents to the emergency department for psychiatric evaluation. Was pt. sent in by a medical professional or institution? @ -No Did you speak to anyone other than the patient for history? @ -No Did you review nursing and triage notes? @ -Yes, and I agree, it is accurate with regards to the patient's symptoms. Were old charts reviewed? @ -No Differential Diagnosis? @ -Differential Mental Health Depression, anxiety, bipolar, psychosis, schizophrenia, borderline personality, situational depression, adjustment disorder, behavioral disorder, brain tumor, malingering, substance abuse, encephalopathy, medication reaction, dementia, hypothyroidism, degenerative neurologic disorder, lupus.... This is not meant to be all-inclusive list EKG interpreted by me (3pts min.)? @ -Not obtained X-rays interpreted by me (1pt min.)? @ -Not obtained CT interpreted by me (1pt min.)? @ -Not obtained U/S interpreted by me (1pt. min.)? @ -Not obtained What testing was considered but not performed? (CT, X-rays, U/S, labs)? Why? @ -None What meds were considered but not given? Why? @ -None Did you discuss the management of the patient with other professionals? @ -Yes, Jacqueline Sevilla with EPS who advised that the patient will be admitted to [facility] for further psychiatric care. Did you reconcile home meds? @ -No Was smoking cessation discussed for >3mins.? @ -No Was critical care preformed (if so, how long)? @ -No Were there social determinants of health that impacted care today? How? (Homelessness, low income, unemployed, alcoholism, drug addiction, transportation, low edu. Level, literacy, decrease access to med. care, group home, rehab)? @ -No Was there de-escalation of care discussed even if they declined? (Discuss DNR or withdrawal of care, Hospice)? @ -No What co-morbidities impacted this encounter? (DM, HTN, Smoking, COPD, CAD, Cancer, CVA, Hep., AIDS, mental health diagnosis, sleep apnea, morbid obesity)? @ -Autism, mental health diagnoses Was patient admitted / discharged? @ -Admitted. Patient's BAT was 0.0 and he was cleared for EPS evaluation. UDS positive for marijuana. EPS evaluated the patient and advised that he meets criteria for inpatient psychiatric hospitalization due to active suicidal ideations and inability to safety plan. Patient admitted to 3 on a voluntary basis for further psychiatric care. Undiagnosed new problem with uncertain prognosis? @ -None Drug Therapy requiring intensive monitoring for toxicity (Heparin, Nitro, Insulin, Cardizem)? @ -None Were any procedures done? @ -None Diagnosis/symptom? @ -Suicidal ideations Acute, or Chronic, or Acute on Chronic? @ -Acute Uncomplicated (without systemic symptoms) or Complicated (systemic symptoms)? @ -Complicated Side effects of treatment? @ -None Exacerbation, Progression, or Severe Exacerbation] @ -Not applicable Poses a threat to life or bodily function? @ -Yes, can lead to . - Lab Data Lab Results 12/03/24 12/03/24 Range/Units 19:30 19:30 Urine Color Yellow Urine Appearance Clear (Clear) Urine pH 5.5 (5.0-8.0) Ur Specific [place] 1.036 H (1.001-1.035) Urine Protein Negative (Negative) Urine Glucose (UA) Negative (Negative) Urine Ketones Negative (Negative) Urine Blood Negative (Negative) Urine Nitrite Negative (Negative) Urine Bilirubin Negative (Negative) Urine Urobilinogen <2.0 (<2.0) mg/dL Ur Leukocyte Esterase Negative (Negative) Urine Opiates Screen Not Detected (NotDetected) Ur Oxycodone Screen Not Detected (NotDetected) Urine Methadone Screen Not Detected (NotDetected) Ur Barbiturates Screen Not Detected (NotDetected) U Tricyclic Antidepress Not Detected (NotDetected) Ur Phencyclidine Scrn Not Detected (NotDetected) Ur Amphetamines Screen Not Detected (NotDetected) U Methamphetamines Scrn Not Detected (NotDetected) U Benzodiazepines Scrn Not Detected (NotDetected) Urine Cocaine Screen Not Detected (NotDetected) U Marijuana (THC) Screen Detected H (NotDetected) SARS-CoV-2 (PCR) Not Detected (Not Detectd) Disposition Clinical Impression: Suicidal ideation Disposition: TRANSFER TO PSYCH HOSP/UNIT
[2024-12-03 19:43] LABS: Bilirubin,Urine Negative (Negative); Blood,Urine Negative (Negative); Color,Urine Yellow; Glucose,Urine (UA) Negative (Negative); Ketones,Urine Negative (Negative); Leukocyte Esterase,Urine Negative (Negative); Nitrite,Urine Negative (Negative); PH, Urine 5.5 (5.0-8.0); Protein,Urine Negative (Negative); Specific Gravity,Urine 1.036 (1.001-1.035); Urobilinogen,Urine <2.0 mg/dL (<2.0)
[2024-12-03 19:58] LABS: Barbiturate Screen,Urine Not Detected (NotDetected); Benzodiazepines Screen,Urine Not Detected (NotDetected); Opiate Screen,Urine Not Detected (NotDetected); Oxycodone Screen, Urine Not Detected (NotDetected); Phencyclidine Screen,Urine Not Detected (NotDetected); Tricyclic Antidepressant,Urine Not Detected (NotDetected); Urn Cannabinoid Scrn Detected (NotDetected)
[2024-12-03] MEDS ORDERED: MAGNESIUM HYDROXIDE 2,400 MG/30 ML CUP PO PRN (23:18)
[2024-12-03] MEDS ORDERED: MAG HYDROX/AL HYDROX/SIMETH 355 ML BOTTLE PO PRN (23:18)
[2024-12-03] MEDS ORDERED: ACETAMINOPHEN TAB 325 MG TAB PO PRN (23:18)
[2024-12-03] MEDS ORDERED: IBUPROFEN 600 MG TAB PO PRN (23:18)
[2024-12-03] MEDS ORDERED: hydrOXYzine HCL 50 MG/ML 1 ML VIAL IM PRN (23:20)
[2024-12-03] MEDS ORDERED: OLANZapine 10 MG TAB PO PRN (23:20)
[2024-12-03] MEDS ORDERED: OLANZapine 10 MG VIAL IM PRN (23:20)
[2024-12-03] MEDS ORDERED: hydrOXYzine HCL 25 MG TAB PO PRN (23:20)
[2024-12-04] MEDS: LITHIUM CARBONATE 150 MG CAP PO SCH (01:19)
[2024-12-04 08:27] LABS: Basophils # (A) 0.05 10*3/uL (0.00-0.10); Basophils % (A) 0.6 %; Eosinophils # (A) 0.16 10*3/uL (0.04-0.35); Eosinophils % (A) 2.1 %; HCT 46.0 % (39.6-50.0); HGB 15.6 g/dL (13.0-17.0); Lymphocytes # (A) 1.48 10*3/uL (0.90-5.00); Lymphocytes % (A) 19.1 %; MCH 29.8 pg (27.0-32.0); MCHC 33.9 g/dL (32.0-37.0); MCV 87.8 fL (80.0-97.0); Monocytes # (A) 0.58 10*3/uL (0.20-1.00); Monocytes % (A) 7.5 %; Neutrophils # (A) 5.43 10*3/uL (1.80-7.70); Neutrophils % (A) 70.3 %; Platelet Count 205 10*3/uL (140-440); RBC 5.24 10*6/uL (4.40-5.60); RDW 12.1 % (11.5-14.5); WBC 7.73 10*3/uL (4.50-10.00)
[2024-12-04 08:40] LABS: ALT 19 U/L (4-49); AST 28 U/L (17-59); African American GFR (CKD) >90 (>60 ml/min/1.73 sqM); Albumin 4.5 g/dL (3.5-5.0); Alkaline Phosphatase 56 U/L (38-126); Anion Gap 11 mmol/L; Blood Urea Nitrogen 14 mg/dL (9-20); Calcium 9.7 mg/dL (8.4-10.2); Carbon Dioxide 29 mmol/L (22-30); Chloride 100 mmol/L (98-107); Glucose 84 mg/dL (74-99); Lithium <0.2 mmol/L; Non-African American GFR(CKD) >90 (>60 ml/min/1.73 sqM); Potassium 4.4 mmol/L (3.5-5.1); Sodium 140 mmol/L (137-145); Total Protein 7.1 g/dL (6.3-8.2)
--- NOTE | 2024-12-04 12:17 | P.HP ---
Psychiatric H&P - . H&P Date: 12/04/24 History & Physical: Allergies Allergy/AdvReac Type Severity Reaction Status Date / Time No Known Allergies Allergy Verified 12/03/24 20:58 Vital Signs Temp 98.2 F 12/04/24 08:53 Pulse 65 12/04/24 08:53 Resp 18 12/04/24 08:53 BP 108/67 12/04/24 08:53 Pulse Ox 99 12/03/24 23:46 FiO2 Intake & Output 12/03/24 12/04/24 12/04/24 18:59 06:59 18:59 Weight 95.254 kg 93.468 kg Laboratory Last Values WBC 7.73 10*3/uL (4.50-10.00) 12/04/24 07:12 RBC 5.24 10*6/uL (4.40-5.60) 12/04/24 07:12 Hgb 15.6 g/dL (13.0-17.0) 12/04/24 07:12 Hct 46.0 % (39.6-50.0) 12/04/24 07:12 MCV 87.8 fL (80.0-97.0) 12/04/24 07:12 MCH 29.8 pg (27.0-32.0) 12/04/24 07:12 MCHC 33.9 g/dL (32.0-37.0) 12/04/24 07:12 Plt Count 205 10*3/uL (140-440) 12/04/24 07:12 MPV 12.0 fL (9.5-12.2) 12/04/24 07:12 Immature Gran % (Auto) 0.4 % 12/04/24 07:12 Neutrophils % 70.3 % 12/04/24 07:12 Lymphocytes % 19.1 % 12/04/24 07:12 Monocytes % 7.5 % 12/04/24 07:12 Eosinophils % 2.1 % 12/04/24 07:12 Basophils % 0.6 % 12/04/24 07:12 Immature Gran # 0.03 10*3/uL (0.00-0.04) 12/04/24 07:12 Neutrophils # 5.43 10*3/uL (1.80-7.70) 12/04/24 07:12 Lymphocytes # 1.48 10*3/uL (0.90-5.00) 12/04/24 07:12 Monocytes # 0.58 10*3/uL (0.20-1.00) 12/04/24 07:12 Eosinophils # 0.16 10*3/uL (0.04-0.35) 12/04/24 07:12 Basophils # 0.05 10*3/uL (0.00-0.10) 12/04/24 07:12 Sodium 140 mmol/L (137-145) 12/04/24 07:12 Potassium 4.4 mmol/L (3.5-5.1) 12/04/24 07:12 Chloride 100 mmol/L (98-107) 12/04/24 07:12 Carbon Dioxide 29 mmol/L (22-30) 12/04/24 07:12 Anion Gap 11 mmol/L 12/04/24 07:12 BUN 14 mg/dL (9-20) 12/04/24 07:12 Creatinine 0.92 mg/dL (0.66-1.25) 12/04/24 07:12 Est GFR (CKD-EPI)AfAm >90 (>60 ml/min/1.73 sqM) 12/04/24 07:12 Est GFR (CKD-EPI)NonAf >90 (>60 ml/min/1.73 sqM) 12/04/24 07:12 Glucose 84 mg/dL (74-99) 12/04/24 07:[address] Glu mg/dL 103 mg/dL 12/04/24 07:12 Hemoglobin A1c 5.2 % (<=6.0) 12/04/24 07:12 Calcium 9.7 mg/dL (8.4-10.2) 12/04/24 07:12 Total Bilirubin 0.6 mg/dL (0.2-1.3) 12/04/24 07:12 AST 28 U/L (17-59) 12/04/24 07:12 ALT 19 U/L (4-49) 12/04/24 07:12 Alkaline Phosphatase 56 U/L (38-126) 12/04/24 07:12 Total Protein 7.1 g/dL (6.3-8.2) 12/04/24 07:12 Albumin 4.5 g/dL (3.5-5.0) 12/04/24 07:12 TSH 2.700 mIU/L (0.465-4.680) 12/04/24 07:12 Urine Color Yellow 12/03/24 19:30 Urine Appearance Clear (Clear) 12/03/24 19:30 Urine pH 5.5 (5.0-8.0) 12/03/24 19:30 Ur Specific [place] 1.036 (1.001-1.035) H 12/03/24 19:30 Urine Protein Negative (Negative) 12/03/24 19:30 Urine Glucose (UA) Negative (Negative) 12/03/24 19:30 Urine Ketones Negative (Negative) 12/03/24 19: Urine Blood Negative (Negative) 12/03/24: Urine Nitrite Negative (Negative) 12/03/24 19:30 Urine Bilirubin Negative (Negative) 12/03/24 19:30 Urine Urobilinogen <2.0 mg/dL (<2.0) 12/03/24 19:30 Ur Leukocyte Esterase Negative (Negative) 12/03/24 19:30 Urine Opiates Screen Not Detected (NotDetected) 12/03/24 19:30 Ur Oxycodone Screen Not Detected (NotDetected) 12/03/24 19:30 Urine Methadone Screen Not Detected (NotDetected) 12/03/24 19:30 Ur Barbiturates Screen Not Detected (NotDetected) 12/03/24 19:30 U Tricyclic Antidepress Not Detected (NotDetected) 12/03/24 19:30 Ur Phencyclidine Scrn Not Detected (NotDetected) 12/03/24 19:30 Ur Amphetamines Screen Not Detected (NotDetected) 12/03/24 19:30 U Methamphetamines Scrn Not Detected (NotDetected) 12/03/24 19:30 U Benzodiazepines Scrn Not Detected (NotDetected) 12/03/24 19:30 [place] <0.2 mmol/L 12/04/24 07:12 Urine Cocaine Screen Not Detected (NotDetected) 12/03/24 19:30 U Marijuana (THC) Screen Detected (NotDetected) H 12/03/24 19:30 SARS-CoV-2 (PCR) Not Detected (Not Detectd) 12/03/24 19:30 12/04/24 11:59 IDENTIFYING DATA: Patient is a 34-year-old male with history of autism, living independently in an apartment HPI: Patient presented to the hospital with suicidal ideations. Per EPS note, "Pt brought self to ER d/t increased SI with plan to overdose. Pt reports being taken off his Latuda was Mary Echols because he didn't like being on more than one medications. Pt does not feel safe to leave and feels he would kill himself. He states an increase in SI. Pt does have a hx of attempts via overdose and cutting. Pt finds no swapna in anything and feels no coping skills are working for him. "nothing matters". Lack of appetite, not sleeping well, lack of self care. Denies etoh or substances." Patient seen and evaluated on the unit and was agreeable with speaking to literary writer in his room. Patient claims that he has been feeling more depressed and suicidal lately. Claims that he stopped taking his Latuda because he believes that it was making him feel "worse". He states that he has been having more anxiety. Claims that he has only been taking the lithium. Has been going to [facility] for follow-up last seen November 18. Denies any significant stressors or changes in his life. Claims that his sleep and appetite are poor. Claims that he was having thoughts of overdosing on his medications before coming to the hospital. Patient states the medications not working for him and he is interested in changing them. He At this time he is denying any homicidal ideations. At this time patient denies any auditory or visual hallucinations. Patient denies any flight of ideas racing thoughts and increased in goal directed behavior. Patient admits to using cannabis occasionally and vaping daily. PAST PSYCHIATRIC HISTORY: Patient has a history of bipolar disorder and autism spectrum disorder. Patient is was previously on risperdal uzedy 100 mg, cymbalta 90 mg daily and clonidine 0.1 mg daily. Previously on Latuda and lithium however stopped taking the Latuda several days ago. He has tried seroquel, prozac, zoloft, trileptal previously. Patient was last at this facility earlier this month from patient was last admitted psychiatrically in October 2024. Patient follows with [facility] with the nurse practitioner. Patient has a history of suicide attempt via cutting PMH: as per ER note ALLERGIES: as per EMR SUBSTANCE USE HISTORY: As per HPI FAMILY PSYCHIATRIC/SUBSTANCE USE HISTORY: patient states his mother has bipolar disorder SOCIAL HISTORY: Patient is single and has no children. He lives independently in an apartment and is on SSI. He completed high school. Claims that he went to group home in 2022 for property damages. MENTAL STATUS EXAM: General Appearance: Patient appears to be short hair, stated age is alert, directable, and attempts to cooperate. Patient appears to have fair hygiene and grooming. Behavior: Patient is seated without any agitated behavior. Attempts to cooperate fairly concrete Speech: Patient's speech is fluent and nonpressured. Mood/Affect: Patient reports their mood is "depressed and anxious", affect is congruent and constricted. Suicidality/Homicidality: Patient denies having any homicidal ideation intent or plan. He reports suicidal ideations, no intent or plan at this time Perceptions: Patient denies any visual hallucinations and denies any auditory hallucinations Though content/process: There is no evidence of any delusional thought content and thought process is linear and logical. Poverty of content Memory and concentration: AOX3, grossly intact for the purposes of this session. Can spell "WORLD" backwards Judgment and insight: Chronically poor/limited STRENGTHS/WEAKNESSES: strength is that patient is resilient. Weakness is that patient has poor judgment and poor insight and judgment INTELLECT: Average IMPRESSIONS: Schizoaffective disorder bipolar type Nicotine dependence Autism spectrum disorder PLAN: -Patient is admitted under voluntary status to [facility] for stabilization of psychiatric symptoms and safety. Patient has signed adult voluntary form and and is placed in patient's chart. -Medications : Start Prolixin p.o. 2.5 mg twice daily for psychosis/mood stabilization. Trazodone 50 mg nightly as needed for insomnia. Changed to Lithobid 450 mg nightly for mood stabilization/suicidal thoughts. -[place] level was low on admission - Ativan and Haldol PRN for agitation/aggression -Patient was informed of the risks, benefits and side effects of the medication and patient verbally consented to taking the medications. Patient did sign med consent form and was placed in chart. Patient offered and declined patient education sheet for psychotropic medications. -Internal Medicine consult to perform medical evaluation and physical. -NRT -nicotine patch -SW on board for discharge planning. Encourage patient to participate in groups to work on coping skills. 12/04/24 12:11
--- NOTE | 2024-12-04 20:06 | P.CONS ---
History of Present Illness - Reason for Consult Consult date: 12/04/24 medical co managmeent - Chief Complaint SI - History of Present Illness Josh is a 35-year-old male with history of affective disorder. Presents the hospital due to suicidal ideation. He denies having a plan. He denies any recreational drug use he denies any tobacco use and he denies any excessive alcohol use. He is currently seen in inpatient [facility]. Urine drug screen has shown positivity for cannabis. His lithium level is undetectable he expresses that he has been compliant with his lithium. His TSH is 2.7. Review of Systems ROS negative except for HPI Past Medical History Past Medical History: No Reported History Additional Past Medical History / Comment(s): autism, psoriasis History of Any Multi-Drug Resistant Organisms: None Reported Past Surgical History: No Surgical Hx Reported Past Anesthesia/Blood Transfusion Reactions: No Reported Reaction Past Psychological History: Anxiety, Bipolar, Depression Smoking Status: Never smoker Past Alcohol Use History: Occasional Past Drug Use History: Marijuana - Past Family History Mother Additional Family Medical History / Comment(s): Mother is alive at age 60 with history of bipolar, Crohn's disease Father Family Medical History: Myocardial Infarction ([place]) Additional Family Medical History / Comment(s): Father is alive at age 55 with history of 2 myocardial infarctions. Sister(s) Additional Family Medical History / Comment(s): He has one sister with no major medical problems. Medications and Allergies Home Medications Medication Instructions Recorded Confirmed Type [place] Carbonate 150 mg PO BID 30 Days #60 cap 11/11/24 12/03/24 Rx Allergies Allergy/AdvReac Type Severity Reaction Status Date / Time No Known Allergies Allergy Verified 12/03/24 20:58 Physical Exam Vitals: Vital Signs Temp Pulse Resp BP Pulse Ox 12/04/24 08:53 98.2 F 65 18 108/67 12/03/24 23:46 98.0 F 76 16 115/79 99 Intake and Output 12/04/24 12/04/24 12/04/24 06:59 14:59 22:59 Other: Weight 93.468 kg General: non toxic, no distress, a Derm: rash around nasal bridge Head: atraumatic, normocephalic, symmetric Eyes: EOMI, no lid lag, anicteric sclera, pupils equal round reactive to light ENT: Nose and ears atraumatic, no thrush, no pharyngeal erythema Neck: No thyromegaly, no cervical lymphadenopathy, trachea midline, supple Mouth: no lip lesion, mucus membranes moist Cardiovascular: S1S2 reg, no murm Lungs: clear to ascultation bilateral, no ronchi, no rales, no wheeze, no accessory muscle use Abdominal: soft, nontender to palpation, no guarding, Ext: no gross muscle atrophy Neuro: moving all extremeties spontanously Psych: Alert, oriented, appropriate affect Results CBC & Chem 7: 12/04/24 07:12 12/04/24 07:12 Assessment and Plan Assessment: #) Schzioaffective disorder, primary management as per pscyahitry team, lithium level was undetectable upon admission. [place] has been increased from 150 mg twice daily to 450 mg hs as per primary team #) Class 1 obesity, weight loss recommended #) cannabis use, recommend cessation. thank you for allowing us to take care of this patient. lipid profile and a1c pending.
[2024-12-04] MEDS: LITHIUM CARBONATE ER 450 MG TABLET.ER PO SCH (20:23)
--- NOTE | 2024-12-05 11:24 | P.PN ---
Progress Note - Text Progress Note Date: 12/05/24 Interval history: Patient was seen today for psychiatric follow-up. Patient was lying in bed ag reeable to speak in check writer salesperson's office. Claims that he is feeling a bit tired this morning, claims that he did miss breakfast. States that he feels the medications have been making her feel a bit tired. We spoke about adjusting the dose of Prolixin which she is okay to continue trying. Claims that his mood feels a bit more stable, we talked about checking a lithium dose Sunday. He has not been going to many groups. Hygiene and grooming remained poor. Denies any issues with appetite at this time. Denies any suicidal or homicidal ideations intent or plan. Denies any auditory or visual hallucinations. MENTAL STATUS EXAM: General Appearance: Patient appears to be short hair, stated age is alert, directable, and attempts to cooperate. Patient appears to have fair hygiene and grooming. Behavior: Patient is seated without any agitated behavior. Attempts to cooperate fairly concrete Speech: Patient's speech is fluent and nonpressured. Mood/Affect: Patient reports their mood is "a bit better", affect is congruent and constricted. Suicidality/Homicidality: Patient denies having any homicidal ideation intent or plan. He reports suicidal ideations, no intent or plan at this time Perceptions: Patient denies any visual hallucinations and denies any auditory hallucinations Though content/process: There is no evidence of any delusional thought content and thought process is linear and logical. Poverty of content Memory and concentration: AOX3, grossly intact for the purposes of this session Judgment and insight: Chronically poor/limited, improving mildly, improving m ildly IMPRESSIONS: Schizoaffective disorder bipolar type Nicotine dependence Autism spectrum disorder PLAN: -Patient is admitted under voluntary status to [facility]HU for stabilization of psychiatric symptoms and safety. Patient has signed adult voluntary form and and is placed in patient's chart. -Medications : Change Prolixin p.o. 1 mg daily + 3 mg nightly for psychosis/mood stabilization. Trazodone 50 mg nightly as needed for insomnia. Lithobid 450 mg nightly for mood stabilization/suicidal thoughts. -[place] level was low on admission, we will recheck lithium level Sunday - Ativan and Haldol PRN for agitation/aggression -NRT -nicotine patch -SW on board for discharge planning. Encourage patient to participate in groups to work on coping skills. Likely discharge early next week Sunday versus Sunday if patient is improving
[2024-12-05 13:18] LABS: Cholesterol 272.00 mg/dL (0.00-200.00); HDL Cholesterol 44.50 mg/dL (40.00-60.00); LDL Cholesterol,Calculated 201.1 mg/dL (0.0-131.0); Triglycerides 132.00 mg/dL (0.00-149.00); VLDL Calculation 26.40 mg/dL (5.00-40.00)
--- NOTE | 2024-12-06 14:13 | P.PN ---
Progress Note - Text Progress Note Date: 12/06/24 Dictation was produced using [employer] dictation software. Please excuse any grammatical, word or spelling errors. Interval history: Patient was seen in the hallway and was directable and agreeable to speak with the commercial insurance underwriter in the office for psychiatric follow-up. The patient states that he is a little groggy and drowsy today. States that his mood is "alright." Reported that depression and anxiety are at the moderate side, he rated depression at 4/10, and anxiety at 8/10, states that he is worried about what he will do after discharge. He denied any current SI/HI or self harm, denied any current AVH. Admitted to good sleep last night, and admitted to good appetite. States that he feels safe in the unit, and is getting along well with peers. He has been taking his medications, denied any side effects, denied any muscle stiffness, rigidity, abnormal movement, or drooling. He states that he does not want to attend group and pt was encouraged to do so. MENTAL STATUS EXAM: General Appearance: Patient appears to be short hair, stated age is alert, directable, and attempts to cooperate. Patient appears to have fair hygiene and grooming. Behavior: Patient is seated without any agitated behavior. Attempts to cooperate fairly concrete Speech: Patient's speech is fluent and nonpressured. Mood/Affect: Patient reports their mood is "alright", affect is congruent and constricted. Suicidality/Homicidality: Patient denies having any homicidal ideation intent or plan. Denied any current suicidal ideations, no intent or plan Perceptions: Patient denies any visual hallucinations and denies any auditory hallucinations Though content/process: There is no evidence of any delusional thought content and thought process is linear and logical. Poverty of content Memory and concentration: AOX3, grossly intact for the purposes of this session Judgment and insight: Chronically poor/limited, improving mildly, improving mildly IMPRESSIONS: Schizoaffective disorder bipolar type Nicotine dependence Autism spectrum disorder Assessment/Plan: Continue with current diagnosis. Patient continues to meet criteria for inpatient psychiatric admission for symptom stabilization and safety. Patient will be maintained on current psychotropic medication regimen which include Prolixin 1 mg p.o. daily, and 3 mg p.o. at bedtime, trazodone 50 mg p.o. as needed at bedtime, and Lithobid 450 mg p.o. at bedtime education was provided, risk, benefit and side effect discussed, brief psychotherapy was provided, patient denied any current side effects, denied any muscle stiffness, rigidity, abnormal movement, or drooling. Monitor for medication compliance and for any psychotropic medication side effects. Will continue to monitor ongoing response to treatment. Encouraged participation in milieu.
--- NOTE | 2024-12-07 11:58 | P.PN ---
Progress Note - Text Progress Note Date: 12/07/24 Dictation was produced using [employer] dictation software. Please excuse any grammatical, word or spelling errors. Interval history: Patient was seen in his room and was directable and agreeable to speak with the newspaper writer in the office for psychiatric follow-up. The patient states that he was a little irritable this morning and he does not know why, however is feeling better now. States that mood today is "so-so." States that depression and anxiety are at the moderate side, he rated depression at 4/10 and anxiety at 7/10. He denied any current SI/HI or self harm, states that he had that thoughts last prior to coming to the hospital. He denied any current AVH. Admitted to okay sleep last night, and admitted to good appetite. States that he feels safe in the unit, and is getting along well with peers, and reported that staff have been nice to him. He has been taking his medications, denied any side effects, denied any muscle stiffness, rigidity, abnormal movement, or drooling. He states that he went to the first group, and was encouraged to attend more groups. Mental status exam: General Appearance: Patient appears to be short hair, stated age is alert, directable, and attempts to cooperate. Patient appears to have fair hygiene and grooming. Behavior: Patient is seated without any agitated behavior. Attempts to cooperate fairly concrete Speech: Patient's speech is fluent and nonpressured. Mood/Affect: Patient reports their mood is "alright", affect is congruent and constricted. Suicidality/Homicidality: Patient denies having any homicidal ideation intent or plan. Denied any current suicidal ideations, no intent or plan Perceptions: Patient denies any visual hallucinations and denies any auditory hallucinations Though content/process: There is no evidence of any delusional thought content and thought process is linear and logical. Poverty of content Memory and concentration: AOX3, grossly intact for the purposes of this session Judgment and insight: Chronically poor/limited, improving mildly, improving mildly IMPRESSIONS: Schizoaffective disorder bipolar type Nicotine dependence Autism spectrum disorder Assessment/Plan: Continue with current diagnosis. Patient continues to meet criteria for inpatient psychiatric admission for symptom stabilization and safety. Patient will be maintained on current psychotropic medication regimen which include Prolixin 1 mg p.o. daily, and 3 mg p.o. at bedtime, trazodone 50 mg p.o. as needed at bedtime, and Lithobid 450 mg p.o. at bedtime education was provided, risk, benefit and side effect discussed, brief psychotherapy was provided, patient denied any current side effects, denied any muscle stiffness, rigidity, abnormal movement, or drooling. Li level is scheduled for tomorrow morning. Monitor for medication compliance and for any psychotropic medication side effects. Will continue to monitor ongoing response to treatment. Encouraged participation in milieu.
--- NOTE | 2024-12-08 11:17 | P.PN ---
Progress Note - Text Progress Note Date: 12/08/24 Interval history: Patient was seen today for psychiatric follow-up. Patient was lying in bed ag reeable to speak in medical underwriter's office. Patient continues to mainly keep to himself on the unit. He claims that he is experiencing some irritability however does not know why this is. He claims that he has been taking his medications, claims that he is feeling tired during the day has been only going to limited groups. Up for medications and meals. Claims that he is sleeping fairly at nighttime. Not reporting any EPS symptoms at this time. compliance and long-acting injection to help with the benefits of compliance and We spoke about medicatio stability however patient is unsure about this and will think about it. Hygiene and grooming remained poor. Denies any issues with appetite at this time. Denies any suicidal or homicidal ideations intent or plan. Denies any auditory or visual hallucinations. MENTAL STATUS EXAM: General Appearance: Patient appears to be short hair, stated age is alert, directable, and attempts to cooperate. Patient appears to have poor hygiene and grooming. discheveled hair. Behavior: Patient is seated without any agitated behavior. Attempts to cooperate fairly concrete Speech: Patient's speech is fluent and nonpressured. gaurded Mood/Affect: Patient reports their mood is "anxious and still depressed", affect is congruent and constricted. Suicidality/Homicidality: Patient denies having any homicidal ideation intent or plan. He reports suicidal ideations, no intent or plan at this time Perceptions: Patient denies any visual hallucinations and denies any auditory hallucinations Though content/process: There is no evidence of any delusional thought content and thought process is linear and logical. concrete. focused on his sx. Memory and concentration: AOX3, grossly intact for the purposes of this session Judgment and insight: Chronically poor/limited, improving mildly, improving mildly IMPRESSIONS: Schizoaffective disorder bipolar type Nicotine dependence Autism spectrum disorder PLAN: -Patient is admitted under voluntary status to [facility] for stabilization of psychiatric symptoms and safety. Patient has signed adult voluntary form and and is placed in patient's chart. -Medications : decrease Prolixin to 3 mg nightly for psychosis/mood stabilization. Trazodone 50 mg nightly as needed for insomnia. Lithobid 450 mg nightly for mood stabilization/suicidal thoughts. added cymbalta 30 mg daily for mood/anxiety - Ativan and Haldol PRN for agitation/aggression -NRT -nicotine patch - on board for discharge planning. Encourage patient to participate in groups to work on coping skills. Likely discharge in 2-3 days if patient is improving. he is still undecided on LUNA at this time, he is high risk for non compliance with medications. [facility] looking into patient either going to ACT team vs next step program.
--- NOTE | 2024-12-09 11:28 | P.PN ---
Progress Note - Text Progress Note Date: 12/09/24 Interval history: Patient was seen today for psychiatric follow-up. Patient was lying in bed ag reeable to speak in job specification writer's office. Patient appears to be the most stable today claims that he is feeling less depressed, claims that the Cymbalta has been helping. He states that his anxiety is also improving a bit. He has not been going to groups and when asked why he states that "they do not really do anything for me". Continues to mainly keep to himself on the unit. We spoke again about the advantages and drawbacks of the long-acting injection of the Prolixin he was agreeable to try a low dose of that for now will be given today. Claims that he slept fairly last night has been eating. Not reporting any other side effects from the medications. Denies any suicidal or homicidal ideations intent or plan. Denies any auditory or visual hallucinations. MENTAL STATUS EXAM: General Appearance: Patient appears to be short hair, stated age is alert, directable, and attempts to cooperate. Patient appears to have mildly improving hygiene and grooming. discheveled hair. Behavior: Patient is seated without any agitated behavior. Attempts to cooperate fairly concrete, improving mildly Speech: Patient's speech is fluent and nonpressured. gaurded, improving mildly Mood/Affect: Patient reports their mood is "better", affect is congruent and constricted. Suicidality/Homicidality: Patient denies having any homicidal ideation intent or plan. He reports suicidal ideations, no intent or plan at this time Perceptions: Patient denies any visual hallucinations and denies any auditory hallucinations Though content/process: There is no evidence of any delusional thought content and thought process is linear and logical. concrete. Memory and concentration: AOX3, grossly intact for the purposes of this session Judgment and insight: Chronically poor/limited, improving mildly IMPRESSIONS: Schizoaffective disorder bipolar type Nicotine dependence Autism spectrum disorder PLAN: -Patient is admitted under voluntary status to [facility] for stabilization of psychiatric symptoms and safety. Patient has signed adult voluntary form and and is placed in patient's chart. -Medications : decrease Prolixin to 2 mg nightly for psychosis/mood stabilization then discontinue as patient is agreeable to receive Prolixin D 12.5 mg [id number] to help ensure compliance. Trazodone 50 mg nightly as needed for insomnia. Lithobid 450 mg nightly for mood stabilization/suicidal thoughts. increase cymbalta 60 mg daily for mood/anxiety - Ativan and Haldol PRN for agitation/aggression -NRT -nicotine patch -SW on board for discharge planning. Encourage patient to participate in groups to work on coping skills. Likely discharge tomorrow vs if patient is improving. he will be receiving prolixin LUNA at this time, he is high risk for non compliance with medications. [facility] looking into patient either going to ACT team vs next step program.
[2024-12-09] MEDS: fluPHENAZine DECANOATE 25 MG/ML 5ML MDV IM SCH (12:37)
[2024-12-09 22:04] VITALS: RESP 18; TEMP 97.6
[2024-12-10] MEDS: DULoxetine HCL 60 MG CAPSULE.DR PO SCH (08:05)
[2024-12-10 08:06] VITALS: BP 123/92; PULSE 74
--- NOTE | 2024-12-10 10:22 | P.DS ---
Providers Date of admission: 12/03/24 23:01 Expected date of discharge: 12/10/24 Attending physician: Shen Yan MD Consults: 12/03/24 23:18 Consult Physician Routine Consulting Provider: Elvia Stevens Consult Reason/Comments: H&P Do you want consulting provider notified?: Yes Primary care physician: Stated None - Discharge Diagnosis(es) (1) Schizoaffective disorder, bipolar type Current Visit: Yes Status: Acute Priority: High (2) Nicotine dependence Current Visit: Yes Status: Acute Priority: Low (3) Autism spectrum disorder Current Visit: Yes Status: Acute Priority: Medium Hospital Course: Admission HPI: Admission note was completed by [typewriter tester] "[Patient is a 34-year-old male with history of autism, living independently in an apartment. Patient presented to the hospital with suicidal ideations. Per EPS note, "Pt brought self to ER d/t increased SI with plan to overdose. Pt reports being taken off his Latuda was Mary Mejia because he didn't like being on more than one medications. Pt does not feel safe to leave and feels he would kill himself. He states an increase in SI. Pt does have a hx of attempts via overdose and cutting. Pt finds no swapna in anything and feels no coping skills are working for him. "nothing matters". Lack of appetite, not sleeping well, lack of self care. Denies etoh or substances." Patient seen and evaluated on the unit and was agreeable with speaking to typewriter tester in his room. Patient claims that he has been feeling more depressed and suicidal lately. Claims that he stopped taking his Latuda because he believes that it was making him feel "worse". He states that he has been having more anxiety. Claims that he has only been taking the lithium. Has been going to [facility] for follow-up last seen November 18. Denies any significant stressors or changes in his life. Claims that his sleep and appetite are poor. Claims that he was having thoughts of overdosing on his medications before coming to the hospital. Patient states the medications not working for him and he is interested in changing them. He At this time he is denying any homicidal ideations. At this time patient denies any auditory or visual hallucinations. Patient denies any flight of ideas racing thoughts and increased in goal directed behavior. Anju cannon admits to using cannabis occasionally and vaping daily.]" Hospital course: Upon admission to the unit patient was [directable and agreeable to commence treatment and signed adult voluntary form.] Patient was initially depressed isolative however with time and treatment patient got along well with other patients on the unit and followed unit protocol. Patient was compliant with the medications and denied any side effects throughout hospital course. Patient was started on Prolixin p.o and eventually transition to Prolixin D given 12.5 mg IM q 14 days for psychosis/mood stabilization. Trazodone as needed for insomnia, Lithobid 450 mg nightly for mood stabilization/suicidal thoughts, Cymbalta 60 mg daily for mood/anxiety. Patient spoke of [his] stressors and engaged in therapy both group/activity therapy. Patient was also seen by medical team for history and physical exam. Throughout the course of the hospitalization patient gradually improved with regards to mood, anxiety, suicidal thoughts, sleep and returned back to their baseline level of functioning. On the day of discharge patient denied any suicidal or homicidal ideations intent or plan denied any auditory or visual hallucinations. Patient endorsed wanting to live for their health and family. The patient denied any access to guns or weapons. Patient denied any paranoia and did not endorse any delusions. Patient does not have a significant history of substance abuse and was counseled on abstaining from all substances including alcohol and marijuana. Patient was also counseled on the medications and need for regular compliance and was encouraged to follow-up with their outpatient appointment for mental health and also for primary care. [facility] will get patient connected with either the next step program or the act team for closer monitoring due to patient's frequent rehospitalizations Mental status exam: General Appearance: Patient appears to be stated age is alert, pleasant, and cooperative. Patient is in no acute distress and has improved hygiene and grooming Behavior: Patient is calmly seated without any agitated behavior. Speech: Patient's speech is fluent and nonpressured. Mood/Affect: Patient reports their mood is "better", affect is congruent Suicidality/Homicidality: Patient denies having any suicidal or homicidal ideation intent or plan. Perceptions: Patient denies any auditory or visual hallucinations. Though content/process: There is no evidence of any delusional thought content and thought process is linear and goal-directed. More future oriented Memory and concentration: AOX3, grossly intact for the purposes of this session. Can spell "WORLD" backwards correctly. Judgment and insight: Chronically poor, however has improved with guarded prognosis Impression: Schizoaffective disorder bipolar type Autism spectrum disorder Nicotine dependence Plan: -Continue with discharge today as patient has improved and stabilized psychiatrically and is not currently an imminent threat to themself and/or others. Patient will remain at chronically elevated risk for harm to self and/or others due to their impulsivity and chronic mental illness. -Continue medications: Prolixin D given 12.5 mg IM q 14 days for psychosis/mood stabilization, last dose was given on 12/09, next dose will be due at [facility] on 12/23. Cymbalta 60 mg daily for mood/anxiety, Lithobid 450 mg nightly for mood stabilization/suicidal thoughts. -Patient was counseled on the need for medication compliance and appropriate follow-up at mental health and also primary care for medical issues. Patient ve rbalized understanding and agreed. -Social work to help coordinate patients discharge today. also to ensure safe home environment that guns/weapons are either removed from the home or locked away. Social work also to arrange for patients follow up appointments with [facility] for psychiatric care along with follow up with primary care provider. Currently awaiting whether patient will go to the next step program versus ACT team for closer monitoring. -Patient counseled on abstaining from recreational drugs and marijuana and alcohol. Was informed/educated on the adverse effects on their physical and m ental health. Patient verbally agreed and understood. -Patient was instructed to return to the hospital or seek immediate medical care if their psychiatric or medical symptoms do worsen or reoccur. Allergies Allergy/AdvReac Type Severity Reaction Status Date / Time No Known Allergies Allergy Verified 12/03/24 20:58 Laboratory Results WBC 7.73 10*3/uL (4.50-10.00) 12/04/24 07:12 RBC 5.24 10*6/uL (4.40-5.60) 12/04/24 07:12 Hgb 15.6 g/dL (13.0-17.0) 12/04/24 07:12 Hct 46.0 % (39.6-50.0) 12/04/24 07:12 MCV 87.8 fL (80.0-97.0) 12/04/24 07:12 MCH 29.8 pg (27.0-32.0) 12/04/24 07:12 MCHC 33.9 g/dL (32.0-37.0) 12/04/24 07:12 Plt Count 205 10*3/uL (140-440) 12/04/24 07:12 MPV 12.0 fL (9.5-12.2) 12/04/24 07:12 Immature Gran % (Auto) 0.4 % 12/04/24 07:12 Neutrophils % 70.3 % 12/04/24 07:12 Lymphocytes % 19.1 % 12/04/24 07:12 Monocytes % 7.5 % 12/04/24 07:12 Eosinophils % 2.1 % 12/04/24 07:12 Basophils % 0.6 % 12/04/24 07:12 Immature Gran # 0.03 10*3/uL (0.00-0.04) 12/04/24 07:12 Neutrophils # 5.43 10*3/uL (1.80-7.70) 12/04/24 07:12 Lymphocytes # 1.48 10*3/uL (0.90-5.00) 12/04/24 07:12 Monocytes # 0.58 10*3/uL (0.20-1.00) 12/04/24 07:12 Eosinophils # 0.16 10*3/uL (0.04-0.35) 12/04/24 07:12 Basophils # 0.05 10*3/uL (0.00-0.10) 12/04/24 07:12 Sodium 140 mmol/L (137-145) 12/04/24 07:12 Potassium 4.4 mmol/L (3.5-5.1) 12/04/24 07:12 Chloride 100 mmol/L (98-107) 12/04/24 07:12 Carbon Dioxide 29 mmol/L (22-30) 12/04/24 07:12 Anion Gap 11 mmol/L 12/04/24 07:12 BUN 14 mg/dL (9-20) 12/04/24 07:12 Creatinine 0.92 mg/dL (0.66-1.25) 12/04/24 07:12 Est GFR (CKD-EPI)AfAm >90 (>60 ml/min/1.73 sqM) 12/04/24 07:12 Est GFR (CKD-EPI)NonAf >90 (>60 ml/min/1.73 sqM) 12/04/24 07:12 Glucose 84 mg/dL (74-99) 12/04/24 07:[address] Glu mg/dL 103 mg/dL 12/04/24 07:12 Hemoglobin A1c 5.2 % (<=6.0) 12/04/24 07:12 Calcium 9.7 mg/dL (8.4-10.2) 12/04/24 07:12 Total Bilirubin 0.6 mg/dL (0.2-1.3) 12/04/24 07:12 AST 28 U/L (17-59) 12/04/24 07:12 ALT 19 U/L (4-49) 12/04/24 07:12 Alkaline Phosphatase 56 U/L (38-126) 12/04/24 07:12 Total Protein 7.1 g/dL (6.3-8.2) 12/04/24 07:12 Albumin 4.5 g/dL (3.5-5.0) 12/04/24 07:12 Triglycerides 132.00 mg/dL (0.00-149.00) 12/04/24 07:12 Cholesterol 272.00 mg/dL (0.00-200.00) H 12/04/24 07:12 LDL Cholesterol, Calc 201.1 mg/dL (0.0-131.0) H 12/04/24 07:12 VLDL Cholesterol, Calc 26.40 mg/dL (5.00-40.00) 12/04/24 07:12 HDL Cholesterol 44.50 mg/dL (40.00-60.00) 12/04/24 07:12 Cholesterol/HDL Ratio 6.11 Ratio 12/04/24 07:12 TSH 2.700 mIU/L (0.465-4.680) 12/04/24 07:12 Urine Color Yellow 12/03/24 19:30 Urine Appearance Clear (Clear) 12/03/24 19:30 Urine pH 5.5 (5.0-8.0) 12/03/24 19:30 Ur Specific [place] 1.036 (1.001-1.035) H 12/03/24 19:30 Urine Protein Negative (Negative) 12/03/24 19:30 Urine Glucose (UA) Negative (Negative) 12/03/24 19:30 Urine Ketones Negative (Negative) 12/03/24 19:30 Urine Blood Negative (Negative) 12/03/24 19:30 Urine Nitrite Negative (Negative) 12/03/24 19:30 Urine Bilirubin Negative (Negative) 12/03/24 19:30 Urine Urobilinogen <2.0 mg/dL (<2.0) 12/03/24 19:30 Ur Leukocyte Esterase Negative (Negative) 12/03/24 19:30 Urine Opiates Screen Not Detected (NotDetected) 12/03/24 19:30 Ur Oxycodone Screen Not Detected (NotDetected) 12/03/24 19:30 Urine Methadone Screen Not Detected (NotDetected) 12/03/24 19:30 Ur Barbiturates Screen Not Detected (NotDetected) 12/03/24 19:30 U Tricyclic Antidepress Not Detected (NotDetected) 12/03/24 19:30 Ur Phencyclidine Scrn Not Detected (NotDetected) 12/03/24 19:30 Ur Amphetamines Screen Not Detected (NotDetected) 12/03/24 19:30 U Methamphetamines Scrn Not Detected (NotDetected) 12/03/24 19:30 U Benzodiazepines Scrn Not Detected (NotDetected) 12/03/24 19:30 [place] 0.4 mmol/L 12/08/24 07:05 Urine Cocaine Screen Not Detected (NotDetected) 12/03/24 19:30 U Marijuana (THC) Screen Detected (NotDetected) H 12/03/24 19:30 SARS-CoV-2 (PCR) Not Detected (Not Detectd) 12/03/24 19:30 Vital Signs Temp 97.6 F 12/09/24 21:00 Pulse 74 12/10/24 08:06 Resp 18 12/10/24 08:06 BP 123/92 12/10/24 08:06 Pulse Ox 100 12/10/24 08:06 FiO2 Patient Condition at Discharge: Stable Plan - Discharge Summary Discharge Rx Participant: No New Discharge Prescriptions: New DULoxetine HCL [Cymbalta] 60 mg PO DAILY 30 Days #30 cap [place] Carbonate ER [Lithobid] 450 mg PO HS 30 Days #30 tab fluPHENAZine decanoate [Prolixin Decanoate] 12.5 mg IM Q14D #1 ml Acetaminophen Tab [Tylenol] 650 mg PO Q4HR PRN tab PRN Reason: Mild Pain (Scale 1 To 3) Ibuprofen [Motrin] 600 mg PO Q6HR PRN tab PRN Reason: Moderate Pain (Scale 4 To 6) Discontinued [place] Carbonate 150 mg PO BID 30 Days #60 cap Discharge Medication List Acetaminophen Tab [Tylenol] 650 mg PO Q4HR PRN tab 12/10/24 [Rx] DULoxetine HCL [Cymbalta] 60 mg PO DAILY 30 Days #30 cap 12/10/24 [Rx] Ibuprofen [Motrin] 600 mg PO Q6HR PRN tab 12/10/24 [Rx] [place] Carbonate ER [Lithobid] 450 mg PO HS 30 Days #30 tab 12/10/24 [Rx] fluPHENAZine decanoate [Prolixin Decanoate] 12.5 mg IM Q14D #1 ml 12/10/24 [Rx] Follow up Appointment(s)/Referral(s): [facility] [REFERRING] - 1 Week [facility] [NON-STAFF] - 12/15/24 4:00 pm (12/15/2024 4:00PM - 5:00PM RHONDA RICKETTS 12/16/2024 11:00AM - 11:30AM MARY MEJIA ) Patient Instructions/Handouts: Schizoaffective Disorder (DC), Autism Spectrum Disorder (DC) Activity/Diet/Wound Care/Special Instructions: [facility] Discharge Info Avoid the use of street drugs and alcohol. Take all medications as prescribed. When you are in need of refills on your medications, please contact your outpatient medical provider and/or outpatient psychiatrist. Please go to your scheduled outpatient appointments for aftercare treatment. If symptoms return or become worse, call the crisis line at or and/or visit the nearest emergency room for assistance. National Suicide and Crisis Lifeline - call or text 499.Medical physician recommends to follow up outpatient in 4-6 weeks to have thyroid levels checked again. Recommendations to have an EMG outpatient on bilateral upper extremities for probable bilateral carpal tunnel. Discharge Disposition: HOME SELF-CARE
== END 2024-12-10 11:10 | disposition home or self-care (01) | DRG 761 ==
LOC: EC 18:26 → 3MHU 23:01
PROVIDERS: ADMIT Psychiatry & Neurology Psychiatry; ATTEND Psychiatry & Neurology Psychiatry
DX: F25.0 Schizoaffective disorder, bipolar type (principal); F41.9 Anxiety disorder, unspecified; F84.0 Autistic disorder; F17.290 Nicotine dependence, other tobacco product, uncomplicated; L40.9 Psoriasis, unspecified; E66.811 Obesity, class 1; R45.851 Suicidal ideations; Z79.899 Other long term (current) drug therapy; Z91.51 Personal history of suicidal behavior; Z71.3 Dietary counseling and surveillance; Z68.32 Body mass index [BMI] 32.0-32.9, adult; Z71.51 Drug abuse counseling and surveillance of drug abuser; Z71.41 Alcohol abuse counseling and surveillance of alcoholic; Z71.89 Other specified counseling
CPT/HCPCS: 80053; 80061; 80178; 80306; 81003; 82075; 83036; 84443; 85025; 87635; 99285

== ENCOUNTER 2024-12-16 13:33 | Emergency (ER) | payer MEDICARE ==
--- NOTE | 2024-12-16 16:29 | ED ---
Psych HPI - General Source: patient, RN notes reviewed Mode of arrival: ambulatory - History of Present Illness MD Complaint: suicidal ideation Associated Psychiatric Symptoms: depression, suicidal ideation History of same: Yes Quality: constant Associated Symptoms: other (Dizziness) Treatments Prior to Arrival: none If Self Harm: admits thoughts of self harm, has plan <Ze Johnson - Last Filed: 12/16/24 19:00> <Janice Azul - Last Filed: 12/16/24 20:58> - General Chief Complaint: Psychiatric Symptoms Stated Complaint: Mental Health Eval. Time Seen by Provider: 12/16/24 13:46 - History of Present Illness Initial Comments: This is a calm and cooperative 34-year-old male presenting for suicidal ideation. Patient states he has had depression and thoughts of self-harm for several years. Endorses vague plan of taking his prescribed medication to overdose. Patient states he currently takes lithium and duloxetine as prescr ibed, denying use to or abuse of any other medications. Patient endorses often hitting the front, back and sides of his head against patel for the past several years with recurring, transient dizziness. Denies associated headaches, vision change, nausea/vomiting. Patient endorses history of prior mental health admissions. Denies HI, visual/auditory hallucinations. (Ze Johnson) - Related Data Previous Rx's Medication Instructions Recorded Acetaminophen Tab [Tylenol] 650 mg PO Q4HR PRN tab 12/10/24 DULoxetine HCL [Cymbalta] 60 mg PO DAILY 30 Days #30 cap 12/10/24 Ibuprofen [Motrin] 600 mg PO Q6HR PRN tab 12/10/24 [place] Carbonate ER [Lithobid] 450 mg PO HS 30 Days #30 tab 12/10/24 fluPHENAZine decanoate [Prolixin 12.5 mg IM Q14D #1 ml 12/10/24 Decanoate] Allergies Allergy/AdvReac Type Severity Reaction Status Date / Time No Known Allergies Allergy Verified 12/03/24 20:58 Review of Systems ROS Other: All systems not noted in ROS Statement are negative. <Ze Johnson - Last Filed: 12/16/24 19:00> ROS Other: All systems not noted in ROS Statement are negative. <Janice Azul - Last Filed: 12/16/24 20:58> ROS Statement: Those systems with pertinent positive or pertinent negative responses have been documented in the HPI. Past Medical History Past Medical History: No Reported History Additional Past Medical History / Comment(s): autism, psoriasis History of Any Multi-Drug Resistant Organisms: None Reported Past Surgical History: No Surgical Hx Reported Past Anesthesia/Blood Transfusion Reactions: No Reported Reaction Past Psychological History: Anxiety, Bipolar, Depression Smoking Status: Never smoker Past Alcohol Use History: Occasional Past Drug Use History: Marijuana - Past Family History Mother Additional Family Medical History / Comment(s): Mother is alive at age 60 with history of bipolar, Crohn's disease Father Family Medical History: Myocardial Infarction ([place]) Additional Family Medical History / Comment(s): Father is alive at age 55 with history of 2 myocardial infarctions. Sister(s) Additional Family Medical History / Comment(s): He has one sister with no major medical problems. <Ze Johnson - Last Filed: 12/16/24 19:00> General Exam Limitations: no limitations General appearance: alert, in no apparent distress Head exam: Present: atraumatic, normocephalic, normal inspection Eye exam: Present: normal appearance, PERRL, EOMI. Absent: scleral icterus, conjunctival injection, periorbital swelling ENT exam: Present: normal exam, mucous membranes moist Neck exam: Present: normal inspection. Absent: tenderness, meningismus, lymphadenopathy Respiratory exam: Present: normal lung sounds bilaterally. Absent: respiratory distress, wheezes, rales, rhonchi, stridor Cardiovascular Exam: Present: regular rate, normal rhythm, normal heart sounds. Absent: systolic murmur, diastolic murmur, rubs, gallop, clicks GI/Abdominal exam: Present: soft, normal bowel sounds. Absent: distended, tenderness, guarding, rebound, rigid Extremities exam: Present: normal inspection, full ROM, normal capillary refill. Absent: tenderness, pedal edema, joint swelling, calf tenderness Back exam: Present: normal inspection Neurological exam: Present: alert, oriented X3, CN II-XII intact Psychiatric exam: Present: normal affect, normal mood Skin exam: Present: warm, dry, intact, normal color. Absent: rash <Ze Johnson - Last Filed: 12/16/24 19:00> Course Vital Signs 12/16/24 13:49 Temperature 99 F Pulse Rate 88 Respiratory 16 Rate Blood Pressure 118/75 O2 Sat by Pulse 97 Oximetry Medical Decision Making <Ze Johnson - Last Filed: 12/16/24 19:00> - Radiology Data Radiology results: report reviewed, image reviewed <Janice Azul - Last Filed: 12/16/24 20:58> - Medical Decision Making Was pt. sent in by a medical professional or institution (, PA, MEDICAL EQUIPMENT REPAIR TECHNICIAN, urgent care, hospital, or residential...) When possible be specific @ -No Did you speak to anyone other than the patient for history (EMS, parent, family, police, friend...)? What history was obtained from this source @ -No Did you review nursing and triage notes (agree or disagree)? Why? @ -I reviewed and agree with nursing and triage notes Were old charts reviewed (outside hosp., previous admission, EMS record, old EKG, old radiological studies, urgent care reports/EKG's, residential records)? Report findings @ -No old charts were reviewed Differential Diagnosis (chest pain, altered mental status, abdominal pain women, abdominal pain men, vaginal bleeding, weakness, fever, dyspnea, syncope, headache, dizziness, GI bleed, back pain, seizure, CVA, palpatations, mental health, musculoskeletal)? @ -Differential Mental Health Depression, anxiety, bipolar, psychosis, schizophrenia, borderline personality, situational depression, adjustment disorder, behavioral disorder, brain tumor, malingering, substance abuse, encephalopathy, medication reaction, dementia, hypothyroidism, degenerative neurologic disorder, lupus.... This is not meant to be all-inclusive list differential Dizziness: Benign paroxysmal positional Vertigo, Meniere's disease, otitis media, acoustic neuroma, vertebrobasilar insufficiency, cerebellar stroke, encephalitis, hypovolemic, arrhythmia, coronary artery syndrome, anemia, this is not meant to be an all-inclusive list EKG interpreted by me (3pts min.). @ -Not done X-rays interpreted by me (1pt min.). @ -None done CT interpreted by me (1pt min.). @ -Head CT shows no acute intracranial process. U/S interpreted by me (1pt. min.). @ -None done What testing was considered but not performed or refused? (CT, X-rays, U/S, labs)? Why? @ -None What meds were considered but not given or refused? Why? @ -None Did you discuss the management of the patient with other professionals (mei darby i.e. , [employer], MEDICAL EQUIPMENT REPAIR TECHNICIAN, lab, RT, psych nurse, manager social media, shade cutter, teacher, environmental conservation officer, bottle caser)? Give summary @ -No Was smoking cessation discussed for >3mins.? @ -No Was critical care preformed (if so, how long)? @ -No Were there social determinants of health that impacted care today? How? (Homelessness, low income, unemployed, alcoholism, drug addiction, transportation, low edu. Level, literacy, decrease access to med. care, long term, rehab)? @ -No Was there de-escalation of care discussed even if they declined (Discuss DNR or withdrawal of care, Hospice)? DNR status @ -No What co-morbidities impacted this encounter? (DM, HTN, Smoking, COPD, CAD, Cancer, CVA, ARF, Chemo, Hep., AIDS, mental health diagnosis, sleep apnea, morbid obesity)? @ -None Was patient admitted / discharged? Hospital course, mention meds given and route, prescriptions, significant lab abnormalities, going to OR and other pertinent info. @ -Head CT shows no acute intracranial process. EPS aware and interview pending. Patient care passed to Janice Azul PA-C (Ze Johnson) Was patient admitted / discharged? Hospital course, mention meds given and route, prescriptions, significant lab abnormalities, going to OR and other pertinent info. @ -Patient signed out to me by Ze Johnson PA-C pending EPS evaluation and disposition. Patient evaluated by EPS RNMarissa. Patient will need to be transferred for inpatient mental health evaluation. Pretransfer labs ordered. Suicide precautions in place. Case discussed with ED attending, Dr. West Undiagnosed new problem with uncertain prognosis? @ -No Drug Therapy requiring intensive monitoring for toxicity (Heparin, Nitro, Insulin, Cardizem)? @ -No Were any procedures done? @ -No Diagnosis/symptom? @ -Suicidal ideation/head injury Acute, or Chronic, or Acute on Chronic? @ -Acute Uncomplicated (without systemic symptoms) or Complicated (systemic symptoms)? @ -Complicated Side effects of treatment? @ -No Exacerbation, Progression, or Severe Exacerbation? @ -No Poses a threat to life or bodily function? How? (Chest pain, [place], [place], pneumonia, PE, COPD, DKA, ARF, appy, cholecystitis, CVA, Diverticulitis, Homicidal, Suicidal, threat to staff... and all critical care pts) @ -Yes, suicidal ideation (Janice Azul) - Lab Data Lab Results 12/16/24 Range/Units 16:30 Urine Opiates Screen Not Detected (NotDetected) Ur Oxycodone Screen Not Detected (NotDetected) Urine Methadone Screen Not Detected (NotDetected) Ur Barbiturates Screen Not Detected (NotDetected) U Tricyclic Antidepress Not Detected (NotDetected) Ur Phencyclidine Scrn Not Detected (NotDetected) Ur Amphetamines Screen Not Detected (NotDetected) U Methamphetamines Scrn Not Detected (NotDetected) U Benzodiazepines Scrn Not Detected (NotDetected) Urine Cocaine Screen Not Detected (NotDetected) U Marijuana (THC) Screen Detected H (NotDetected) Disposition <Ze Johnson - Last Filed: 12/16/24 19:00> Time of Disposition: 20:27 - Out of Hospital Transfer - Req. Specs Out of Hospital Transfer - Requested Specifics: Other Emergency Center (Mental health transfer) <Janice Azul - Last Filed: 12/16/24 20:58> Clinical Impression: Suicidal ideation, Head injury Disposition: OTHER INSTITUTION NOT DEFINED Condition: Stable Referrals: None,Stated [Primary Care Provider] - 1-2 days
--- NOTE | 2024-12-16 16:34 | CT ---
EXAMINATION TYPE: CT brain wo con DATE OF EXAM: 12/16/2024 COMPARISON: 07/16/2024 CLINICAL INDICATION: Male, 34 years old with history of Striking head against patel, recurrent dizzin ess; PHH, dizziness, repeated striking of head on wall CT DLP: 1112.4 mGycm Automated exposure control for dose reduction was used. Findings: The ventricles, basal cisterns and sulci over the convexities are within normal limits and there is n o mass effect or shift of midline structures. No abnormal density is seen throughout the brain parenchyma and there is no acute intra or extra-axia l hemorrhage. The posterior fossa including the brainstem, fourth ventricle and cerebellar pontine angles appear no rmal. Intraorbital contents appear normal and symmetric. Visualized paranasal sinuses and mastoid air cells are well aerated. The calvarium is intact. IMPRESSION: No significant abnormality seen. There is no acute bleed or mass effect. [facility], Workstation: AJ, 12/16/2024 4:31 PM
[2024-12-16 16:55] LABS: Benzodiazepines Screen,Urine Not Detected (NotDetected); Opiate Screen,Urine Not Detected (NotDetected); Phencyclidine Screen,Urine Not Detected (NotDetected); Urn Cannabinoid Scrn Detected (NotDetected)
[2024-12-16 16:56] LABS: Barbiturate Screen,Urine Not Detected (NotDetected); Oxycodone Screen, Urine Not Detected (NotDetected); Tricyclic Antidepressant,Urine Not Detected (NotDetected)
[2024-12-16 21:39] LABS: Basophils # (A) 0.06 10*3/uL (0.00-0.10); Basophils % (A) 0.7 %; Eosinophils # (A) 0.33 10*3/uL (0.04-0.35); Eosinophils % (A) 3.8 %; HCT 39.7 % (39.6-50.0); HGB 14.1 g/dL (13.0-17.0); Lymphocytes # (A) 1.89 10*3/uL (0.90-5.00); Lymphocytes % (A) 22.0 %; MCH 30.7 pg (27.0-32.0); MCHC 35.5 g/dL (32.0-37.0); MCV 86.3 fL (80.0-97.0); Monocytes # (A) 0.68 10*3/uL (0.20-1.00); Monocytes % (A) 7.9 %; Neutrophils # (A) 5.63 10*3/uL (1.80-7.70); Neutrophils % (A) 65.4 %; Platelet Count 195 10*3/uL (140-440); RBC 4.60 10*6/uL (4.40-5.60); RDW 11.9 % (11.5-14.5); WBC 8.61 10*3/uL (4.50-10.00)
[2024-12-16 22:04] LABS: ALT 21 U/L (4-49); AST 19 U/L (17-59); African American GFR (CKD) >90 (>60 ml/min/1.73 sqM); Albumin 3.8 g/dL (3.5-5.0); Alkaline Phosphatase 68 U/L (38-126); Anion Gap 7 mmol/L; Blood Urea Nitrogen 12 mg/dL (9-20); Calcium 8.9 mg/dL (8.4-10.2); Carbon Dioxide 27 mmol/L (22-30); Chloride 105 mmol/L (98-107); Glucose 112 mg/dL (74-99); Non-African American GFR(CKD) >90 (>60 ml/min/1.73 sqM); Potassium 3.9 mmol/L (3.5-5.1); Sodium 139 mmol/L (137-145); Total Protein 6.1 g/dL (6.3-8.2)
[2024-12-17 12:43] VITALS: BP 132/82; PULSE 64; RESP 18; TEMP 97.6
== END 2024-12-17 13:17 ==
LOC: EC 13:33
DX: S09.90XA Unspecified injury of head, initial encounter (principal); R45.851 Suicidal ideations; Z11.52 Encounter for screening for COVID-19; W22.01XA Walked into wall, initial encounter
CPT/HCPCS: 36415; 70450; 80053; 80306; 82075; 85025; 87635; 99285